=== PATIENT | female | born 1940 | race Caucasian/White ===

== ENCOUNTER → 2016-12-16 | Outpatient (CLI) | payer OTHER, BC ==
[~2016-12-16] MED LIST: CALCTAB5 PO; CARV12.52 PO; CHOL100010 PO; CRAN1CAP15 PO; DVN80 PO; LSX20 PO; MAGN400T6 PO; MULT-506; TRAM-10 PO; compound cream
== END | disposition home or self-care (01) ==
LOC: C.PAPS 10:03
PROVIDERS: ATTEND Obstetrics & Gynecology
DX: Z01.419 Encounter for gynecological examination (general) (routine) without abnormal findings (principal)

== ENCOUNTER → 2017-07-23 | Outpatient (CLI) | payer OTHER, BC ==
[2017-07-23 15:39] LABS: ESTIMATED AVERAGE GLUCOSE 128 mg/dl; HA1C FLAG Normal (Normal)
--- NOTE | 2017-07-28 12:49 | CODING QUERY MEDICAL NECESSITY ---
SUPPORTING DIAGNOSIS NEEDED Dr. Casanova, A supporting diagnosis is required for the test/procedure performed on this patient in order for us to be reimbursed by the patient's insurance. Please provide a supporting diagnosis for the following test/procedure listed below next to the test name along with your signature. *If there is no additional diagnosis for this patient that would support the following test/procedure please document that below next to the test/procedure. Test(s)/Procedure(s) that require a supporting diagnosis: * [id number] GLYCATED HEMOGLOBIN DIAGNOSIS: DATE OF SERVICE: 07/23/17 Provider Signature: Date: Thank you Hi Muñoz [facility] Information Management Once completed, please kindly fax back to [phone] For questions please call [phone]
== END | disposition home or self-care (01) ==
LOC: C.LAB1850 13:30
PROVIDERS: ATTEND Internal Medicine Endocrinology, Diabetes & Metabolism
DX: E04.9 Nontoxic goiter, unspecified (principal)

== ENCOUNTER → 2017-10-31 | Outpatient (CLI) | payer OTHER, BC ==
[~2017-10-31] MED LIST changes: +CEPH500C2 PO; +CZR50
[2017-10-31 12:44] LABS: HEMOGLOBIN 12.9 g/dL (12.0-16.0); MEAN CELL VOLUME 92.4 fL (80-100); MEAN CORPUSCULAR HEMOGLOBIN 30.6 pg (25-34); MEAN CORPUSCULAR HGB CONC 33.1 g/dl (32-36); MEAN PLATELET VOLUME 10.2 fL (7.4-10.4); PLATELET COUNT 167 K/uL (130-400); RED CELL DISTRIBUTION WIDTH CV 13.6 % (11.5-14.5); RED CELL DISTRIBUTION WIDTH SD 45.8 fL (36.4-46.3); WHITE BLOOD COUNT 6.04 K/uL (4.8-10.8)
[2017-10-31 12:52] LABS: PTT PATIENT 29.3 SECONDS (21.0-31.0)
[2017-10-31 15:27] LABS: BLOOD UREA NITROGEN 21 mg/dl (7-18); CALCIUM 9.1 mg/dl (8.5-10.1); CARBON DIOXIDE 28 mmol/L (21-32); CREATININE 0.73 mg/dl (0.60-1.20); GLUCOSE 118 mg/dl (70-99); POTASSIUM 4.4 mmol/L (3.5-5.1); SODIUM 134 mmol/L (136-145)
== END | disposition home or self-care (01) ==
LOC: C.LABPBG 10:23
PROVIDERS: ATTEND Internal Medicine Cardiovascular Disease
DX: Z01.818 Encounter for other preprocedural examination (principal); R53.83 Other fatigue; M25.50 Pain in unspecified joint; E55.9 Vitamin D deficiency, unspecified

== ENCOUNTER → 2017-11-04 | Day surgery (SDC) | payer OTHER, BC ==
[~2017-11-04] VITALS: Ht 165.1 cm; Wt 105.0 kg
[~2017-11-04] MED LIST changes: +ACETAMINOPHEN 325 MG TAB PO PRN; +BACITRACIN 50000 UNIT VIAL ONE; +BACITRACIN OINT 0.9 GM PKT ONE; +CEFAZOLIN 1000MG IV PUSH 5 ML IV SCH; +FENTANYL CITRATE INJ 50 MCG/1 ML 2 ML VIAL ONE; +KETOROLAC TROMETHAMINE 10 MG TAB PO PRN; +LACTATED RINGER'S 1000ML IV SCH; +LIDOCAINE HCL 1% 20 ML VIAL ONE; +MIDAZOLAM HCL 5 MG/ML 1 ML VIAL ONE
[2017-11-04 12:00] VITALS: BP 123/88; PULSE 82; TEMP 36; O2SAT 95
[2017-11-04 12:36] VITALS: Ht 165.1 cm; Wt 105.0 kg
--- NOTE | 2017-11-04 13:22 | Pre Sedation Assessment ---
Pre Sedation Assessment General Date of Sedation: Nov 04, 2017. Vital Signs Past 12 Hours Date Time Temp Pulse Resp B/P (MAP) Pulse Ox O2 Delivery O2 Flow Rate FiO2 11/04/17 12:00 36 82 18 123/88 (100) 95 Room Air Review Cardiovascular: regular rate, rhythm, no murmur Lungs: normal breath sounds Pre-Sedation Airway Assessment Smoking Status: Former Smoker Hx of difficult intubation: No Short Thick Neck: Yes Thyro-mental Distance: > 3 Finger Breadths Oral Cavity: WNL Mallampati Classification: Class IV ASA Classification: Class III NPO Status Date of Last Intake of Fluids: Nov 04, 2017 Time of Last Intake of Fluids: 0600 Date of Last Intake of Solids: Nov 03, 2017 Time of Last Intake of Solids: 2200 Procedure Planning Contraindications for Sedation: None Current Medications Reviewed: Yes Notes The planned sedation has been discussed with the patient. Informed Consent was obtained. I have identified the patient, determined the appropriateness of sedation and have assessed the patient immediately prior to the procedure. All medicine(s) and interventions are by my order.
[2017-11-04 14:35] VITALS: BP 164/75; PULSE 82; TEMP 36.3; O2SAT 94
--- NOTE | 2017-11-04 14:35 | [facility] Operative Report ---
Operative Report Operative Date Nov 04, 2017. Pre-Operative Diagnosis ICD at [facility] Post-Operative Diagnosis same Procedure(s) Performed Biventricular ICD replacement Surgeon Dr. Estrada Evaluation Assistant Surgeon(s) none Estimated Blood Loss 30 cc Findings Excellent pacing and sensing characteristics in all 3 chronic leads Specimens Old ICD, return to [employer] Anesthesia local with sedation Complication(s) None Disposition MTU Description of Procedure After obtaining informed consent for the procedure, the patient was brought to the laboratory being NPO after midnight. After identification in the laboratory the patient was prepped and draped in the standard sterile manner for a left- sided device replacement. The left prepectoral region was anesthetized with 1% lidocaine local anesthetic and once adequate anesthesia was obtained a 6 cm incision was made through the old implant scar and carried down to the ICD generator. The generator was dissected free of tissue and explanted. A bacitracin-soaked sponge(50,000 units in 50 cc normal saline solution) was placed in the pocket. The ICD was removed from the leads and connected to an external pacing system. Pacing and sensing characteristics were evaluated in the atrial, right ventricular and left ventricular leads as noted on the implant data sheet. A new ICD was attached to the leads and found to be functioning normally. The bacitracin-soaked sponge was removed from the pocket, the ICD was placed in the pocket with the leads coiled beneath it. It was attached to the anterior pectoral fascia using a suture of 2-0 silk. The incision was closed with a running double subcutaneous closure of 3-0 V-Lock absorbable suture followed by a running subcuticular skin closure of 4-0 V lock absorbable suture. The patient tolerated the procedure well, there were no complications and the patient was transferred to the same-day surgery unit for observation and subsequent discharge. I attest to the content of the Intraoperative Record and any orders documented therein. Any exceptions are noted below.
--- NOTE | 2017-11-04 14:37 | Post Sedation Assessment ---
Post Sedation Assessment General Date of Sedation Nov 04, 2017. Vital Signs: Vital Signs Past 12 Hours Date Time Temp Pulse Resp B/P (MAP) Pulse Ox O2 Delivery O2 Flow Rate FiO2 11/04/17 12:00 36 82 18 123/88 (100) 95 Room Air Post Procedure Recovery Score Activity: (2) Moves 4 extremities * Respiration: (2) Deep breath/cough Circulation: (2) +/-20% PreAnes Value Consciousness: (2) Fully Awake Oxygen Saturation: (2) > 92% On Room Air Post Anesthesia Score: 10 Discharge Sedation Level of Care: Fast Track Phase II Post Sedation Plan On clinical assessment, the patient appears to have tolerated the sedation without complications. Patient is recovering as anticipated. Patient will continue to be monitored by nursing and may be discharged when sedation discharge criteria are met per below protocol. Upon Completions of procedure and additional 15 minutes continue every 5 minute vital signs and the P.A.R. score; then discharge to a Phase I or Fast Track to Phase II per the following guidelines: * Discharge Patient to appropriate Phase II area if PAR is 8 or greater or return to pre- procedure baseline. The post - procedure orders will be as directed. * If PAR score is less than 8 or not return to pre-procedure baseline then patient will follow Phase I monitoring till PAR is reached for Phase II. The Phase I may be done in procedure room or may call to secure a Phase I area. * If naloxone or flumazenil are used for reversal, hold in Phase I for an additional 60 -120 minutes before discharge to Phase II. Please call the Sedation Physician to re-evaluate and complete post-note for discharge to Phase II area. Do NOT discharge from procedure sedation or Phase 1 until post- sedation evaluation note is complete by procedure /sedation MD Sedation Discharge Instructions to be given to the patient at discharge to home.
--- NOTE | 2017-11-04 14:40 | Discharge Instructions ---
Discharge Instructions Date of Service Nov 04, 2017. Admission Reason for Admission: ICD at end of life Discharge Discharge Diagnosis / Problem: biventricular ICD replacement Discharge Goals Goal(s): Improve disease control Activity Recommendations Activity Limitations: resume your previous activity . Instructions / Follow-Up Instructions / Follow-Up ACTIVITY RECOMMENDATIONS: * Do not raise affected arm over head for 2 weeks. SPECIAL CARE INSTRUCTIONS: * If bleeding occurs, apply direct pressure to area for 5 minutes. * Call your doctor if you have severe pain, fever, drainage or bleeding at site. * Keep dressing on and dry. * Keep any scheduled doctor's appointment. * Implant Card - hand held device with website information given. SKIN IRRITATION: * You may experience some redness and/or swelling in the area where radiation was administered. If any skin irritation occurs, please contact your family physician. FOLLOW UP VISIT: Keep any scheduled doctor appointments. Current Hospital Diet Patient's current hospital diet: AHA Diet (Heart Healthy) Discharge Diet Recommended Diet: AHA Diet (Heart Healthy) Pending Studies Studies pending at discharge: no Medical Emergencies . Who to Call and When: Medical Emergencies: If at any time you feel your situation is an emergency, please call 911 immediately. . Non-Emergent Contact Non-Emergency issues call your: Primary Care Provider . . "Provider Documentation" section prepared by Sung Estrada. . VTE Core Measure Inpt VTE Proph given/why not?: Treatment not indicated
[2017-11-04 15:05] VITALS: BP 166/71; PULSE 73; O2SAT 95
[2017-11-04 15:32] VITALS: BP 153/51; PULSE 75; TEMP 36.3; O2SAT 95
[2017-11-04 16:35] VITALS: BP 165/59; PULSE 82; TEMP 36.6; O2SAT 96
== END ==
LOC: C.ACU 11:12
PROVIDERS: ATTEND Internal Medicine Cardiovascular Disease
DX: Z45.02 Encounter for adjustment and management of automatic implantable cardiac defibrillator (principal)

== ENCOUNTER → 2018-01-02 | Outpatient (CLI) | payer OTHER, BC ==
[~2018-01-02] MED LIST changes: -ACETAMINOPHEN 325 MG TAB PO PRN; -BACITRACIN 50000 UNIT VIAL ONE; -BACITRACIN OINT 0.9 GM PKT ONE; -CEFAZOLIN 1000MG IV PUSH 5 ML IV SCH; -DVN80 PO; -FENTANYL CITRATE INJ 50 MCG/1 ML 2 ML VIAL ONE; -KETOROLAC TROMETHAMINE 10 MG TAB PO PRN; -LACTATED RINGER'S 1000ML IV SCH; -LIDOCAINE HCL 1% 20 ML VIAL ONE; -MIDAZOLAM HCL 5 MG/ML 1 ML VIAL ONE; -MULT-506
[2018-01-02 13:26] LABS: BASO % 0.3 %; BASO ABS # 0.02 K/uL (0-0.2); EOS % 1.8 %; EOS ABS # 0.14 K/uL (0-0.5); HEMATOCRIT 39.6 % (37-47); IG# 0.01 K/uL (0.00-0.02); LYMPH % 28.6 %; LYMPH ABS # 2.23 K/uL (1.2-3.4); MEAN CELL VOLUME 91.5 fL (80-100); MEAN CORPUSCULAR HGB CONC 32.8 g/dl (32-36); MEAN PLATELET VOLUME 9.7 fL (7.4-10.4); MONO % 13.4 %; MONO ABS # 1.04 K/uL (0.11-0.59); NEUT % 55.8 %; NEUT ABS # 4.35 K/uL (1.4-6.5); PLATELET COUNT 182 K/uL (130-400); RED CELL DISTRIBUTION WIDTH CV 14.2 % (11.5-14.5); RED CELL DISTRIBUTION WIDTH SD 47.8 fL (36.4-46.3); WHITE BLOOD COUNT 7.79 K/uL (4.8-10.8)
[2018-01-02 14:29] LABS: ALT/SGPT 26 U/L (12-78); BLOOD UREA NITROGEN 17 mg/dl (7-18); CALCIUM 9.2 mg/dl (8.5-10.1); CARBON DIOXIDE 30 mmol/L (21-32); CHOLESTEROL 187 mg/dl (0-200); CREATININE 0.69 mg/dl (0.60-1.20); GLUCOSE 97 mg/dl (70-99); POTASSIUM 4.6 mmol/L (3.5-5.1); SODIUM 134 mmol/L (136-145)
[2018-01-02 14:40] LABS: ALKALINE PHOSPHATASE 75 U/L (45-117); AST/SGOT 14 U/L (15-37); LDL CHOLESTEROL CALCULATED 90 mg/dl; TOTAL PROTEIN 7.5 gm/dl (6.4-8.2)
[2018-01-03 07:35] LABS: HEMOGLOBIN A1C 6.2 % (4.5-5.6)
== END | disposition home or self-care (01) ==
LOC: C.LABBC 11:08
PROVIDERS: ATTEND Internal Medicine
DX: I42.9 Cardiomyopathy, unspecified (principal); Z85.3 Personal history of malignant neoplasm of breast; R53.83 Other fatigue; Z95.810 Presence of automatic (implantable) cardiac defibrillator; G62.9 Polyneuropathy, unspecified; I10 Essential (primary) hypertension; R06.89 Other abnormalities of breathing; M79.7 Fibromyalgia; R06.83 Snoring; E55.9 Vitamin D deficiency, unspecified; R73.09 Other abnormal glucose

== ENCOUNTER → 2018-06-12 | Outpatient (CLI) | payer OTHER, BC ==
[~2018-06-12] MED LIST changes: -CEPH500C2 PO
[2018-06-12 16:54] LABS: BASO % 0.3 %; BASO ABS # 0.02 K/uL (0-0.2); EOS % 1.2 %; EOS ABS # 0.08 K/uL (0-0.5); HEMATOCRIT 38.6 % (37-47); HEMOGLOBIN 12.7 g/dL (12.0-16.0); IG# 0.01 K/uL (0.00-0.02); LYMPH % 26.3 %; LYMPH ABS # 1.76 K/uL (1.2-3.4); MEAN CELL VOLUME 93.2 fL (80-100); MEAN CORPUSCULAR HEMOGLOBIN 30.7 pg (25-34); MEAN CORPUSCULAR HGB CONC 32.9 g/dl (32-36); MEAN PLATELET VOLUME 10.2 fL (7.4-10.4); NEUT % 60.1 %; NEUT ABS # 4.01 K/uL (1.4-6.5); PLATELET COUNT 182 K/uL (130-400); RED CELL DISTRIBUTION WIDTH CV 14.1 % (11.5-14.5); RED CELL DISTRIBUTION WIDTH SD 48.4 fL (36.4-46.3); WHITE BLOOD COUNT 6.68 K/uL (4.8-10.8)
== END | disposition home or self-care (01) ==
LOC: C.LABPBG 12:26
PROVIDERS: ATTEND Internal Medicine
DX: R53.83 Other fatigue (principal); T14.90XA Injury, unspecified, initial encounter; W57.XXXA Bitten or stung by nonvenomous insect and other nonvenomous arthropods, initial encounter

== ENCOUNTER 2020-03-20 11:25 | Inpatient (IN) ==
--- NOTE | 2020-03-20 12:14 | XRay Report ---
XR chest 1V portable CLINICAL HISTORY: 79 years-old Female presenting with Dyspnea. TECHNIQUE: Portable upright AP view of the chest was obtained. COMPARISON: 05/16/2019. FINDINGS: Left subclavian implanted cardiac defibrillator with leads to the right atrium, right ventricular ape x, and left ventricle via the coronary sinus. Atherosclerosis of the aortic arch. Cardiac silhouette moderately enlarged. Pulmonary vascular and interstitial prominence. At a density of the right lung b ase. No large effusion or pneumothorax. Degenerative changes of the thoracic spine. Upper abdomen nor mal. IMPRESSION: 1. Cardiomegaly with volume overload and congestive change. Mild/developing pulmonary edema suspecte d. ACT 112: Negative or not required by law. Electronically signed by: Jairon Bourne M.D. 03/20/2020 12:13 PM
[2020-03-20 12:27] LABS: Basophils # (auto) 0.01 K/uL (0-0.2); Basophils % (auto) 0.1 %; Eosinophils # (auto) 0.08 K/uL (0-0.5); Eosinophils % (auto) 1.1 %; Hematocrit (blood only) 35.8 % (37-47); Hemoglobin 11.7 g/dL (12.0-16.0); Immature Granulocytes # (auto) 0.01 K/uL (0.00-0.02); Immature Granulocytes % (auto) 0.1 %; Lymphocytes # (auto) 1.11 K/uL (1.2-3.4); Lymphocytes % (auto) 15.9 %; Mean Corpuscular Hemoglobin 30.5 pg (25-34); Mean Corpuscular Hgb Conc 32.7 g/dL (32-36); Mean Corpuscular Volume 93.5 fL (80-100); Mean Platelet Volume 9.8 fL (7.4-10.4); Monocytes # (auto) 0.84 K/uL (0.11-0.59); Monocytes % (auto) 12.1 %; Neutrophils # (auto) 4.92 K/uL (1.4-6.5); Neutrophils % (auto) 70.7 %; Platelet Count 147 K/uL (130-400); RDW Coefficient of Variation 14.4 % (11.5-14.5); RDW Standard Deviation 49.2 fL (36.4-46.3); Red Blood Count 3.83 M/uL (4.2-5.4); White Blood Count 6.97 K/uL (4.8-10.8)
[2020-03-20 12:38] LABS: INR 1.1 (0.9-1.1); Partial Thromboplastin Ratio 1.1; Partial Thromboplastin Time 30.6 Seconds (21.0-31.0); Prothrombin Time 11.8 Seconds (9.0-12.0)
[2020-03-20] MEDS ORDERED: NITROGLYCERIN 2% OINTMENT 30GM TUBE EXT ONE (12:38)
[2020-03-20] MEDS ORDERED: FUROSEMIDE 40 MG/4 ML VIAL IV STA (12:38)
[2020-03-20 12:43] LABS: Alanine Aminotransferase 83 U/L (12-78); Albumin Level 3.8 gm/dl (3.4-5.0); Aspartate Aminotransferase 43 U/L (15-37); BUN Creatinine Ratio 27.6 (10-20); Blood Urea Nitrogen 28 mg/dl (7-18); Calcium 8.6 mg/dl (8.5-10.1); Carbon Dioxide 27 mmol/L (21-32); Chloride 102 mmol/L (98-107); Est GFR (African American) 61.2; Est GFR (Non-African American) 52.8; Glucose 155 mg/dl (70-99); Potassium 4.2 mmol/L (3.5-5.1); Sodium 135 mmol/L (136-145)
[2020-03-20 12:49] LABS: Albumin Globulin Ratio 1.1 (0.9-2); Alkaline Phosphatase 73 U/L (45-117); Bilirubin,Total 0.5 mg/dl (0.2-1); Globulin 3.6 gm/dl (2.5-4.0); NT Pro B Type Natriuretic Pept 6358 pg/ml (0-1800); Total Protein 7.4 gm/dl (6.4-8.2); Troponin I < 0.015 ng/ml (0-0.045)
--- NOTE | 2020-03-20 13:35 | History & Physical Report ---
Date of Service March 20, 2020 Assessment & Plan (1) Acute on chronic systolic heart failure: LVEF 25-30% in May 2019 (non-ischemic cardiomyopathy). No need to repeat as < 1 year and no new heart sounds to suggest valvular disease. Switch valsartan to Entresto as per prior cardiology note. Continue metoprolol succinate 100mg PO daily -> may need to up titrate given tachycardia. Lasix 40mg IV given in ER, Will repeat labs in AM to determine further dosing as suspect a lot of her symptoms are ANA PAULA related and Cr/BUN already raised from baseline with recent increase in outpatient lasix. Elevate HOB > 30 degrees Na restricted diet Refer to [facility] CHF program (2) Shortness of breath: Suspect multifactorial with heart failure worse in the morning due to orthopnea and occasional PND, suspected ANA PAULA from history (pending O/P sleep study), obesity hypoventilation, possible reactive airway disease related to post nasal drip below. Will trial duoneb to see if it helps her symptoms to see if there is a reactive airway component to her wheezing. (3) Elevated transaminase level: Unclear if liver congestion from heart failure above or new etiology. Will trend currently to see if resolves with lasix treatment. (4) Post-nasal drip: Associated chronic sinusitis (feels her sinuses full at night) Using Flonase/Nasacort incorrectly. Educated on correct technique. Recommend stopping unspecified children's allergy medication and will start on loratadine. Consider opratropium nasal spray if not effective. (5) Apnea: Suspected ANA PAULA. Apnea described by patient. Pending sleep study as outpatient. Will trial on CPAP here. If unable to tolerate recommend overnight pulse oximetry to determine if she would benefit from nocturnal O2 (6) Biventricular ICD (implantable cardioverter-defibrillator) in place: noted (7) DVT prophylaxis: Lovenox 40mg SQ daily History of Present Illness Chief Complaint: Fatigue, shortness of breath Primary Care Provider: Jairon Hilliard MD Kathrin Carrillo is an 79 year old female with non-ischemic cardiomyopathy who presents to the ER with fatigue and shortness of breath. She tells a protracted history and finds it difficult to tell me the difference between her acute and chronic symptoms and the timing of recent events. She appears to have chronic fa tigue and shortness of breath on exertion as per prior PCP notes but she feels this has been much worse sudden over the last 3-4 weeks, progressively getting worse. She is very short of breath and tired in the mornings. New symptoms of voice loss in the mornings which resolves by the afternoon as she becomes more alert and she relates to her fatigue and shortness of breath. She has heart failure but does not weigh herself. Based on her symptoms she was advised by a family member who is a nurse to increase her lasix in the last week to 40mg PO daily although the patient feels that dried her out too much and three days ago took none, then just 20mg for the last two days including today. She feels her loss of voice symptom is related to this increase in lasix dosing. March 17 was the worst night of all while on the increased dose of lasix where she woke at 2:30am with extreme difficulty breathing. Positive symptoms of orthopnea and PND. She does not sleep with her head of bed elevated despite previous suggestions to do this. She notes chronic sinusitis and postnasal drip, worse at night. She puts this down to allergies and alternates taking nasacort and flonase. She thinks she takes a children's anti-histamine but is unsure of the dose or name. She noted originally she takes decongestant but then later adamantly denies she takes these after being told not to many years ago by her radio electrician (although it is on her medication list provided by her ). She does not feel her chronic postnasal drip has been worse in the last 3-4 weeks. She denies any muscle pain, chest pain, abdominal pain, nausea, vomiting, diarrhea (occasional with lactose containing products) or constipation. With regards to possible obstructive sleep apnea - her outpatient sleep study has been delayed due to COVID-19. She notes apneic episodes at night, tired all the time during the day time. Excessive snoring. She notes feeling very claustrophobic with anything on her face but feels she may be able to tolerate a nasal CPAP if needed. Other sporadic symptoms: numbness in fingers, one by one, right hand, occurs with her arm placed in certain positions, goes away with shaking it out. occasionally feels very weak and shivery, deep in her torso, although this has not occurred in the last 3-4 weeks with her above symptoms. She also notes more chronic bilateral shoulder abduction weakness. Feels this started last summer - can't raise arms above shoulder levels as it makes her short of breath. Has refused physical therapy as she feels it is too much work to get there with her shortness of breath. Tried contacting her for collateral history but unsuccessful on number in chart. Allergies Allergy/AdvReac Type Severity Reaction Status Date / Time duloxetine [From Cymbalta] Allergy Verified 03/20/20 12:46 Egg Derived Allergy Verified 03/20/20 12:46 Cipro AdvReac Severe Elaine Verified 11/04/17 12:25 Muscle aches and weakness ciprofloxacin AdvReac Severe Elaine Verified 03/20/20 12:46 Muscle aches and weakness NSAIDS (Non-Steroidal AdvReac Severe RECTAL Verified 03/20/20 12:46 Anti-Inflamma BLEEDING epinephrine AdvReac Mild NERVOUS;INCREASED Verified 03/20/20 12:46 HR meperidine AdvReac Mild VOMITING Verified 03/20/20 12:46 nitrofurantoin AdvReac upset Verified 03/20/20 12:46 [From Macrobid] stomach Home Medications Home Medications Medication Instructions Recorded Confirmed Type Lactobacillus 1 cap PO DAILY #30 cap 05/20/19 03/20/20 History acidophilus-Bifidobac.animalis 31 billion cell capsule acetaminophen 500 mg tablet 500 - 1,000 mg PO Q4H PRN tab 05/20/19 03/20/20 History cholecalciferol (vitamin D3) 50 2,000 units PO DAILY tab 05/20/19 03/20/20 History mcg (2,000 unit) tablet vitamin B complex 1 tab PO DAILY 05/20/19 03/20/20 History vitamin E (dl, acetate) 100 unit 100 units PO 2XWK cap 05/20/19 03/20/20 History capsule valsartan 80 mg tablet 80 mg PO DAILY #90 tab 08/20/19 03/20/20 Rx furosemide 20 mg tablet 20 mg PO DAILY #90 tab 12/27/19 03/20/20 Rx metoprolol succinate 100 mg 100 mg PO DAILY #90 tab 12/27/19 03/20/20 Rx tablet,extended release 24 hr Past Med/Surg History Medical History Acute bronchitis Acute hypersomnolence disorder (Chronic) Allergic rhinitis Arthritis of knee (Chronic) 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) Cardiomyopathy (Chronic) Cardiomyopathy, nonischemic (Chronic) Chronic maxillary sinusitis Chronic sinusitis (Chronic) Dyspnea on exertion (Chronic) Encounter for routine gynecological examination Fatigue (Chronic) Female stress incontinence (Chronic) Fibromyalgia (Chronic) Gasping for breath (Chronic) Generalized osteoarthritis of multiple sites (Chronic) Goiter (Chronic) History of varicose veins (Inactive) HTN (hypertension) (Chronic) Hypertrophy of both inferior nasal turbinates Impaired glucose metabolism (Chronic) Joint pain (Chronic) LBBB (left bundle branch block) (Chronic) Malignant neoplasm of breast (Chronic) Nasal septal deviation No pertinent family history Pacemaker (Chronic) Pain of finger of left hand Paroxysmal ventricular tachycardia (Chronic) Polyneuropathy (Chronic) Pre-diabetes (Chronic) Restless legs (Chronic) Snoring (Chronic) Urinary frequency (Chronic) Vitamin D deficiency (Chronic) Surgical History H/O umbilical hernia repair History of breast biopsy History of cholecystectomy History of lumpectomy left breast History of vaginal hysterectomy Hx of colonoscopy No pertinent past surgical history (Chronic) Family History Mother Breast cancer Hypertension Cancer Gallbladder disease Brother Hypertension Diabetes Other No pertinent family history Denies family history of Ovarian cancer Prostate cancer Myocardial infarction Colorectal cancer Social History Preferred Language: Indonesian Communication Ability: Effective Visual Impairment: No Limitations Hearing Ability: Normal Audio Experience Expert Required: No Beliefs That Will Affect Care: None marital status: Current Living Situation: Spouse 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 Other Information That Helps Us Care for You: No Feels Safe at Home: Yes Safety Concerns: Feels Safe At This Time Smoking Status: Former smoker Age Started Using Tobacco: 18 ; Age Quit Using Tobacco: 23 ; Smoking End Date: 1963 ; Second Hand Exposure: No ; Hx Alcohol Use: No Hx Substance Use: No Childhood Exposure to Second-Hand Smoke: No caffeine: Yes during the past year weight has: remained stable Dental Care, Regularly: Yes Physical Activity Frequency: Does not Exercise Physical Activity Frequency Comment: limited by physical condition Seatbelt Use: always Sunscreen Use: Yes Review of Systems Review of Systems: All systems reviewed & are unremarkable except as noted in HPI & below Constitutional: + sweats; no fever and no chills Eyes: no dry eyes, no itchy eyes and no problem reported Ear, Nose, Mouth, Throat: as per Subjective / HPI, + nasal congestion and + post nasal drip; no ear pain, no dizziness, no foul smell and no epistaxis Respiratory: + cough (in AM), + snoring and + wheezing; no hemoptysis Cardiovascular: as per Subjective / HPI, + dyspnea at rest (in mornings), + dyspnea on exertion, + orthopnea and + paroxysmal nocturnal dyspnea; no palpitations, no edema, no calf pain and no claudication Gastrointestinal: no abdominal pain, no heartburn and no change in bowel habits Genitourinary: no problem reported Musculoskeletal: no problem reported Integumentary: no problem reported Neurologic: + unsteadiness and + generalized weakness Psychiatric: no problem reported Physical Exam 2 Constitutional: well developed and + obese; + not well nourished and no acute distress Eyes: PERRL, conjunctivae normal, anicteric sclerae ENMT: external ear and nose normal, oropharynx normal Neck: trachea midline Thyroid: + thyromegaly; thyroid symmetrical Respiratory: normal respiratory effort, able to speak in complete sentences and + audible wheezes; no respiratory distress, no labored breathing, does not use accessory muscles, no cough and no stridor Auscultation: + diminished lung sounds (bibasal) and + wheezes (anterior); no crackles, no rales and no rhonchi Cardiovascular: Rate/Rhythm: regular rate and regular rhythm Heart Sounds: no murmur Vessels: no JVD Extremities: normal capillary refill, + pedal edema (1+ to knees b/l) and + varicosities (b/l chronic as per patient R > L); no calf tenderness Chest (Breasts): Chest: normal inspection of chest Gastrointestinal (Abdomen): normal bowel sounds, soft, nontender, no hepatosplenomegaly Musculoskeletal: no cyanosis or clubbing, extremities motor strength 5/5 Shoulder: shoulder normal to inspection, no deformity, no effusion and normal ROM of shoulder (full ROM with encouragement but she feels more short of breath) Skin: no rashes, warm and dry Neurologic: moves all extremities and awake; no focal motor deficits and not confused Speech / Cognition: normal speech Motor/Sensory: no tremor, no pronator drift and no sensory deficit Psychiatric: A+Ox3, euthymic affect Genitourinary: no CVA tenderness Lymphatic: no cervical or axillary lymphadenopathy Results & Data Results & Data ([facility]) Vital Signs (Past 12 Hours) Vital Signs Temp Pulse Pulse Resp BP BP Pulse Ox 03/20/20 13:21 98 03/20/20 13:20 98 H 22 155/85 H 99 03/20/20 12:24 99 03/20/20 11:35 36.7 C 105 H 22 151/136 H 95 Diagnostic Findings XR chest 1V portable IMPRESSION: 1. Cardiomegaly with volume overload and congestive change. Mild/developing pulmonary edema suspected. Code Status & VTE Plan Code Status Full as discussed with the patient VTE Prophylaxis Plan VTE Prophylaxis will be ordered: Yes PG Care Time/CCT Total # of Minutes Spent Total Time Spent with Patient: Total time spent is greater than 50% in coordination of care (as documented) at patient's floor/unit and/or counseling patient: Coding Level of Care Code 51347 Initial Inpt Care Lvl 3 Diagnoses Acute on chronic systolic heart failure I50.23 Shortness of breath R06.02 Elevated transaminase level R74.0 Post-nasal drip R09.82 Apnea R06.81 Biventricular ICD (implantable cardioverter-defibrillator) in place Z95.810 DVT prophylaxis Z29.9
--- NOTE | 2020-03-20 14:11 | Emergency Department Note ---
History of Present Illness General Chief complaint: Shortness of Breath/Dyspnea Stated complaint: SOB,COUGH Source: patient and RN notes reviewed Mode of arrival: ambulatory Limitations: no limitations History of Present Illness Provider complaint: Shortness of breath Onset (ago): day(s) 2 This patient is an 79-year-old female who presents to the emergency department with complaints of increasing shortness of breath over the last 2 days. Patient states she did increase her Lasix about a week ago, taking 40 mg daily. The patient thinks that she "dehydrated herself" but feels there may still be fluid in her lungs. She states she has been serious about social distancing with her son and . She feels that she is at very low risk of exposure. The patient does have a history of cardiomyopathy and has a pacemaker. She states she has had some pressure in the middle of her chest, but does not have any currently. Patient states her has been assisting her just to walk out to the living room because she has been so short of breath. She denies any fevers, chills, nausea, vomiting or diarrhea. Home Medications Home Medications Medication Instructions Recorded Confirmed Type Lactobacillus 1 cap PO DAILY #30 cap 05/20/19 03/20/20 History acidophilus-Bifidobac.animalis 31 billion cell capsule acetaminophen 500 mg tablet 500 - 1,000 mg PO Q4H PRN tab 05/20/19 03/20/20 History cholecalciferol (vitamin D3) 50 2,000 units PO DAILY tab 05/20/19 03/20/20 History mcg (2,000 unit) tablet vitamin B complex 1 tab PO DAILY 05/20/19 03/20/20 History vitamin E (dl, acetate) 100 unit 100 units PO 2XWK cap 05/20/19 03/20/20 History capsule valsartan 80 mg tablet 80 mg PO DAILY #90 tab 08/20/19 03/20/20 Rx furosemide 20 mg tablet 20 mg PO DAILY #90 tab 12/27/19 03/20/20 Rx metoprolol succinate 100 mg 100 mg PO DAILY #90 tab 12/27/19 03/20/20 Rx tablet,extended release 24 hr Allergies Allergy/AdvReac Type Severity Reaction Status Date / Time duloxetine [From Cymbalta] Allergy Verified 03/20/20 12:46 Egg Derived Allergy Verified 03/20/20 12:46 Cipro AdvReac Severe Elaine Verified 11/04/17 12:25 Muscle aches and weakness ciprofloxacin AdvReac Severe Elaine Verified 03/20/20 12:46 Muscle aches and weakness NSAIDS (Non-Steroidal AdvReac Severe RECTAL Verified 03/20/20 12:46 Anti-Inflamma BLEEDING epinephrine AdvReac Mild NERVOUS;INCREASED Verified 03/20/20 12:46 HR meperidine AdvReac Mild VOMITING Verified 03/20/20 12:46 nitrofurantoin AdvReac upset Verified 03/20/20 12:46 [From Macrobid] stomach Past Med/Surg History Medical History Acute bronchitis Acute hypersomnolence disorder (Chronic) Allergic rhinitis Arthritis of knee (Chronic) 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) Cardiomyopathy (Chronic) Cardiomyopathy, nonischemic (Chronic) Chronic maxillary sinusitis Chronic sinusitis (Chronic) Dyspnea on exertion (Chronic) Encounter for routine gynecological examination Fatigue (Chronic) Female stress incontinence (Chronic) Fibromyalgia (Chronic) Gasping for breath (Chronic) Generalized osteoarthritis of multiple sites (Chronic) Goiter (Chronic) History of varicose veins (Inactive) HTN (hypertension) (Chronic) Hypertrophy of both inferior nasal turbinates Impaired glucose metabolism (Chronic) Joint pain (Chronic) LBBB (left bundle branch block) (Chronic) Malignant neoplasm of breast (Chronic) Nasal septal deviation No pertinent family history Pacemaker (Chronic) Pain of finger of left hand Paroxysmal ventricular tachycardia (Chronic) Polyneuropathy (Chronic) Pre-diabetes (Chronic) Restless legs (Chronic) Snoring (Chronic) Urinary frequency (Chronic) Vitamin D deficiency (Chronic) Surgical History H/O umbilical hernia repair History of breast biopsy History of cholecystectomy History of lumpectomy left breast History of vaginal hysterectomy Hx of colonoscopy No pertinent past surgical history (Chronic) Family History Mother Breast cancer Hypertension Cancer Gallbladder disease Brother Hypertension Diabetes Other No pertinent family history Denies family history of Ovarian cancer Prostate cancer Myocardial infarction Colorectal cancer Social History Preferred Language: Georgian Communication Ability: Effective Visual Impairment: No Limitations Hearing Ability: Normal Beliefs That Will Affect Care: None marital status: Current Living Situation: Spouse 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 and A total of 10 systems reviewed and were otherwise negative Physical Exam Vital Signs Vital Signs - 24 hr 03/20/20 11:35 03/20/20 11:56 03/20/20 12:11 Temperature 36.7 C Temperature Source Oral Pulse Rate 105 H 104 H Pulse Rate [Left] Pulse Rate from SpO2 Sensor 107 H Respiratory Rate 22 23 Respiratory Effort / Characteristics Blood Pressure 151/136 H Blood Pressure [Right Arm] Blood Pressure Mean 141 Blood Pressure Mean [Right Arm] Blood Pressure Position Sitting Blood Pressure Position [Right Arm] Pulse Oximetry 95 98 Oxygen Delivery Method Room Air Oxygen Flow Rate Sepsis Recent Fever Within 48 Hours No Sepsis Action Taken by Nursing No Action Required 03/20/20 12:24 03/20/20 12:30 03/20/20 13:00 Temperature Temperature Source Pulse Rate 73 Pulse Rate [Left] Pulse Rate from SpO2 Sensor 95 H 97 H Respiratory Rate 21 18 Respiratory Effort / Characteristics Blood Pressure Blood Pressure [Right Arm] Blood Pressure Mean Blood Pressure Mean [Right Arm] Blood Pressure Position Blood Pressure Position [Right Arm] Pulse Oximetry 99 95 97 Oxygen Delivery Method Nasal Cannula Oxygen Flow Rate 2 Sepsis Recent Fever Within 48 Hours Sepsis Action Taken by Nursing 03/20/20 13:15 03/20/20 13:20 03/20/20 13:21 Temperature Temperature Source Pulse Rate 94 H Pulse Rate [Left] 98 H Pulse Rate from SpO2 Sensor 95 H Respiratory Rate 18 22 Respiratory Effort / Characteristics Spontaneous Blood Pressure 155/85 H Blood Pressure [Right Arm] 155/85 H Blood Pressure Mean 107 Blood Pressure Mean [Right Arm] 108 Blood Pressure Position Blood Pressure Position [Right Arm] Lying Pulse Oximetry 98 99 98 Oxygen Delivery Method Nasal Cannula Nasal Cannula Oxygen Flow Rate 3 3 Sepsis Recent Fever Within 48 Hours Sepsis Action Taken by Nursing 03/20/20 13:30 Temperature Temperature Source Pulse Rate 88 Pulse Rate [Left] Pulse Rate from SpO2 Sensor 89 Respiratory Rate 24 Respiratory Effort / Characteristics Blood Pressure Blood Pressure [Right Arm] Blood Pressure Mean Blood Pressure Mean [Right Arm] Blood Pressure Position Blood Pressure Position [Right Arm] Pulse Oximetry 97 Oxygen Delivery Method Oxygen Flow Rate Sepsis Recent Fever Within 48 Hours Sepsis Action Taken by Nursing Vital signs reviewed. Noted to be hypertensive General: Generally well-appearing 79-year-old female, with some increased work of breathing. HEENT: No scleral icterus, PERRLA, neck supple. Atraumatic. Cardiovascular: Regular rate and rhythm, no extra sounds. Pulmonary: Increased work of breathing with crackles bilaterally Abdomen: Soft, nontender, nondistended, positive bowel sounds. Musculoskeletal: Atraumatic, no significant peripheral edema. Neurologic: Patient awake alert and oriented x 3. Skin: Warm, dry, no rash Medical Decision Making Medical Records Attestation: I reviewed the patient's medical records. Home Medications Current Medication List: was personally reviewed by me Laboratory Data Attestation: I reviewed the patient's lab results. Result diagrams: 03/20/20 12:15 03/20/20 12:15 Lab Results 03/20/20 03/20/20 03/20/20 Range/Units 12:15 12:15 12:15 WBC 6.97 (4.8-10.8) K/uL RBC 3.83 L (4.2-5.4) M/uL Hgb 11.7 L (12.0-16.0) g/dL Hct 35.8 L (37-47) % MCV 93.5 (80-100) fL MCH 30.5 (25-34) pg MCHC 32.7 (32-36) g/dL RDW Std Deviation 49.2 H (36.4-46.3) fL RDW Coeff of Morgan 14.4 (11.5-14.5) % Plt Count 147 (130-400) K/uL MPV 9.8 (7.4-10.4) fL Immature Gran % (Auto) 0.1 % Neut % (Auto) 70.7 % Lymph % (Auto) 15.9 % Calvert % (Auto) 12.1 % Eos % (Auto) 1.1 % Baso % (Auto) 0.1 % Immature Gran # (Auto) 0.01 (0.00-0.02) K/uL Neut # (Auto) 4.92 (1.4-6.5) K/uL Lymph # (Auto) 1.11 L (1.2-3.4) K/uL Calvert # (Auto) 0.84 H (0.11-0.59) K/uL Eos # (Auto) 0.08 (0-0.5) K/uL Baso # (Auto) 0.01 (0-0.2) K/uL PT 11.8 (9.0-12.0) Seconds INR 1.1 (0.9-1.1) APTT 30.6 (21.0-31.0) Seconds PTT Ratio 1.1 Sodium 135 L (136-145) mmol/L Potassium 4.2 (3.5-5.1) mmol/L Chloride 102 (98-107) mmol/L Carbon Dioxide 27 (21-32) mmol/L Anion Gap 6.0 (3-11) BUN 28 H (7-18) mg/dl Creatinine 1.00 (0.6-1.2) mg/dl Est Cr Clr Drug Dosing Not Reportable Est GFR ( Amer) 61.2 Est GFR (Non-Af Amer) 52.8 BUN/Creatinine Ratio 27.6 H (10-20) Glucose 155 H (70-99) mg/dl Calcium 8.6 (8.5-10.1) mg/dl Magnesium 2.0 (1.8-2.4) mg/dl Total Bilirubin 0.5 (0.2-1) mg/dl AST 43 H (15-37) U/L ALT 83 H (12-78) U/L Alkaline Phosphatase 73 (45-117) U/L Troponin I < 0.015 (0-0.045) ng/ml NT-Pro-B Natriuret Pep 6358 H (0-1800) pg/ml Total Protein 7.4 (6.4-8.2) gm/dl Albumin 3.8 (3.4-5.0) gm/dl Globulin 3.6 (2.5-4.0) gm/dl Albumin/Globulin Ratio 1.1 (0.9-2) Imaging Data Radiologist's Impression: XR chest 1V portable CLINICAL HISTORY: 79 years-old Female presenting with Dyspnea. TECHNIQUE: Portable upright AP view of the chest was obtained. COMPARISON: 05/16/2019. FINDINGS: Left subclavian implanted cardiac defibrillator with leads to the right atrium, right ventricular apex, and left ventricle via the coronary sinus. Ather osclerosis of the aortic arch. Cardiac silhouette moderately enlarged. Pulmonary vascular and interstitial prominence. At a density of the right lung base. No large effusion or pneumothorax. Degenerative changes of the thoracic spine. Upper abdomen normal. IMPRESSION: 1. Cardiomegaly with volume overload and congestive change. Mild/developing pulmonary edema suspected. ACT 112: Negative or not required by law. Electronically signed by: Jairon Bourne M.D. 03/20/2020 12:13 PM Dictated: 03/20/20 1211 Transcribed: 03/20/20 1211 ECG Data Attestation: I personally reviewed and interpreted this ECG as follows: Indication: + SOB/dyspnea Rate (beats per minute): 109 Rhythm: + other (Ventricularly paced ) ECG Intervals/blocks: + Prolonged QT ECG Findings: + PVCs; no PACs Blood Pressure Blood Pressure Findings: Elevated blood pressure Blood Pressure Disposition: further management by hospitalist KENDRA Narrative An order for cardiac monitoring is placed and the patient is found to be in a ventricularly paced rhythm at 88 bpm This patient was evaluated and appeared to be in no significant distress. IV access was obtained and laboratory work was drawn. Patient was felt to be fairly stable with the exception of some increased work of breathing. She was given aspirin 324 mg to chew. Chest x-ray confirms pulmonary vascular congestion, patient was given 1 inch of nitroglycerin paste and 40 mg of IV Lasix. Patient's laboratory work reveals a mildly elevated BNP and a negative troponin. Patient's EKG reveals a ventricularly paced rhythm. Case was discussed with the hospitalist, Dr. Haynes who is agreed to evaluate the patient for further management. Impression & Plan Congestive heart failure Discharge Plan Visit Data Chief Complaint: Shortness of Breath/Dyspnea Stated Complaint: SOB,COUGH ED Provider: Moraima Russo Discharge Problem: Congestive heart failure Forms Stand Alone Forms: [employer] Prescriptions Prescriptions: No Action valsartan 80 mg tablet 80 mg PO DAILY Qty: 90 RF: 3 vitamin B complex tablet 1 tab PO DAILY RF: 0 Lacto.acidophilus-Bif.animalis 31 billion cell capsule 1 cap PO DAILY Qty: 30 RF: 0 cholecalciferol (vitamin D3) 2,000 unit tablet 2,000 units PO DAILY RF: 0 vitamin E (dl, acetate) 100 unit capsule 100 units PO 2XWK RF: 0 furosemide [Lasix] 20 mg tablet 20 mg PO DAILY Qty: 90 RF: 3 metoprolol succinate 100 mg tablet extended release 24 hr 100 mg PO DAILY Qty: 90 RF: 3 acetaminophen [Tylenol Extra Strength] 500 mg tablet 500 - 1,000 mg PO Q4H PRN (Reason: Pain) RF: 0 Discharge Problem: Congestive heart failure Qualifiers: Heart failure type: unspecified Heart failure chronicity: acute on chronic Qualified Code(s): I50.9 - Heart failure, unspecified
[2020-03-20] MEDS ORDERED: ACETAMINOPHEN 325 MG TAB PO PRN (17:45)
[2020-03-20] MEDS ORDERED: PATIENT'S HEIGHT AND/OR WEIGHT NEEDED SCH (18:00)
[2020-03-20] MEDS ORDERED: ENOXAPARIN INJ 40 MG/0.4 ML SYR SQ SCH (18:00)
[2020-03-20] MEDS ORDERED: ALBUT/IPRATROP 3MG/0.5MG NEB 3 ML VIAL NEB SCH (19:00)
[2020-03-20] MEDS ORDERED: LORATADINE 10 MG TAB PO SCH (21:00)
[2020-03-21 06:00] LABS: Hematocrit (blood only) 33.8 % (37-47); Mean Corpuscular Hemoglobin 30.6 pg (25-34); Mean Corpuscular Hgb Conc 32.5 g/dL (32-36); Mean Corpuscular Volume 93.9 fL (80-100); Mean Platelet Volume 9.8 fL (7.4-10.4); Platelet Count 138 K/uL (130-400); RDW Coefficient of Variation 14.2 % (11.5-14.5); White Blood Count 6.26 K/uL (4.8-10.8)
[2020-03-21 06:05] LABS: Base Excess ABG 4.3 mEq/L (-9-1.8); HCO3 ABG 29 mmol/L (19-24); Oxygen Saturation ABG 96.7 % (90-95); PCO2 ABG 42 mmHg (35-46); PO2 ABG 84 mmHg (80-95); pH ABG 7.46 (7.35-7.45)
[2020-03-21 06:06] LABS: Allen Test Pos (Pos)
[2020-03-21 06:28] LABS: Albumin Level 3.5 gm/dl (3.4-5.0); BUN Creatinine Ratio 27.1 (10-20); Calcium 8.8 mg/dl (8.5-10.1); Creatinine Clr Calc Pharmacy 52.9 ml/min; Est GFR (African American) 61.2; Est GFR (Non-African American) 52.8; Potassium 3.7 mmol/L (3.5-5.1)
[2020-03-21 06:32] LABS: Albumin Globulin Ratio 1.1 (0.9-2); Bilirubin,Total 0.8 mg/dl (0.2-1); Globulin 3.2 gm/dl (2.5-4.0); Total Protein 6.7 gm/dl (6.4-8.2)
[2020-03-21] MEDS: SACUBITRIL-VALSARTAN 24-26 MG TAB PO SCH ×2 (08:11→09:08)
[2020-03-21] MEDS ORDERED: LACTOBACILLUS ACIDOPHILUS (FLORANEX) TAB PO SCH (09:00)
[2020-03-21] MEDS ORDERED: ALBUT/IPRATROP 3MG/0.5MG NEB 3 ML VIAL NEB SCH (09:00)
[2020-03-21] MEDS ORDERED: CHOLECALCIFEROL 1,000 UNITS 25 MCG TAB PO SCH (09:00)
[2020-03-21] MEDS ORDERED: METOPROLOL SUCC 50MG EXT REL TAB PO SCH (09:00)
[2020-03-21] MEDS ORDERED: VITAMIN B COMPLEX TAB PO SCH (09:00)
[2020-03-21] MEDS ORDERED: FUROSEMIDE 20 MG TAB PO SCH (10:45)
--- NOTE | 2020-03-21 14:13 | Discharge Summary ---
Date of Service March 21, 2020 Admission HPI Per Admitting Provider Kathrin Carrillo is an 79 year old female with non-ischemic cardiomyopathy who presents to the ER with fatigue and shortness of breath. She tells a protracted history and finds it difficult to tell me the difference between her acute and chronic symptoms and the timing of recent events. She appears to have chronic fatigue and shortness of breath on exertion as per prior PCP notes but she feels this has been much worse sudden over the last 3-4 weeks, progressively getting worse. She is very short of breath and tired in the mornings. New symptoms of voice loss in the mornings which resolves by the afternoon as she becomes more alert and she relates to her fatigue and shortness of breath. She has heart failure but does not weigh herself. Based on her symptoms she was advised by a family member who is a nurse to increase her lasix in the last week to 40mg PO daily although the patient feels that dried her out too much and three days ago took none, then just 20mg for the last two days including today. She feels her loss of voice symptom is related to this increase in lasix dosing. March 17 was the worst night of all while on the increased dose of lasix where she woke at 2:30am with extreme difficulty breathing. Positive symptoms of orthopnea and PND. She does not sleep with her head of bed elevated despite previous suggestions to do this. She notes chronic sinusitis and postnasal drip, worse at night. She puts this down to allergies and alternates taking nasacort and flonase. She thinks she takes a children's anti-histamine but is unsure of the dose or name. She noted originally she takes decongestant but then later adamantly denies she takes these after being told not to many years ago by her hydrogen cell tender (although it is on her medication list provided by her ). She does not feel her chronic postnasal drip has been worse in the last 3-4 weeks. She denies any muscle pain, chest pain, abdominal pain, nausea, vomiting, diarrhea (occasional with lactose containing products) or constipation. With regards to possible obstructive sleep apnea - her outpatient sleep study has been delayed due to COVID-19. She notes apneic episodes at night, tired all the time during the day time. Excessive snoring. She notes feeling very claustrophobic with anything on her face but feels she may be able to tolerate a nasal CPAP if needed. Other sporadic symptoms: numbness in fingers, one by one, right hand, occurs with her arm placed in certain positions, goes away with shaking it out. occasionally feels very weak and shivery, deep in her torso, although this has not occurred in the last 3-4 weeks with her above symptoms. She also notes more chronic bilateral shoulder abduction weakness. Feels this started last summer - can't raise arms above shoulder levels as it makes her short of breath. Has refused physical therapy as she feels it is too much work to get there with her shortness of breath. Tried contacting her for collateral history but unsuccessful on number in chart. Admission Exam Per Admitting Provider Constitutional: well developed and + obese; + not well nourished and no acute distress Eyes: PERRL, conjunctivae normal, anicteric sclerae ENMT: external ear and nose normal, oropharynx normal Neck: trachea midline Thyroid: + thyromegaly; thyroid symmetrical Respiratory: normal respiratory effort, able to speak in complete sentences and + audible wheezes; no respiratory distress, no labored breathing, does not use accessory muscles, no cough and no stridor Auscultation: + diminished lung sounds (bibasal) and + wheezes (anterior); no crackles, no rales and no rhonchi Cardiovascular: Rate/Rhythm: regular rate and regular rhythm Heart Sounds: no murmur Vessels: no JVD Extremities: normal capillary refill, + pedal edema (1+ to knees b/l) and + varicosities (b/l chronic as per patient R > L); no calf tenderness Chest (Breasts): Chest: normal inspection of chest Gastrointestinal (Abdomen): normal bowel sounds, soft, nontender, no hepatosplenomegaly Musculoskeletal: no cyanosis or clubbing, extremities motor strength 5/5 Shoulder: shoulder normal to inspection, no deformity, no effusion and normal ROM of shoulder (full ROM with encouragement but she feels more short of breath) Skin: no rashes, warm and dry Neurologic: moves all extremities and awake; no focal motor deficits and not confused Speech / Cognition: normal speech Motor/Sensory: no tremor, no pronator drift and no sensory deficit Psychiatric: A+Ox3, euthymic affect Genitourinary: no CVA tenderness Lymphatic: no cervical or axillary lymphadenopathy Principal Diagnosis CHF exacerbation Discharge Exam Constitutional well developed and + obese; no acute distress Neck normal visual inspection Respiratory no respiratory distress and no cough Auscultation: + diminished lung sounds (bilateral bases) and + crackles (mild); no rales, no rhonchi and no wheezes Cardiovascular RRR, no murmur, no edema Gastrointestinal (Abdomen) normal bowel sounds, soft, nontender, no hepatosplenomegaly Skin no rashes, warm and dry Psychiatric A+Ox3, euthymic affect Discharge Data Allergies Allergy/AdvReac Type Severity Reaction Status Date / Time duloxetine [From Cymbalta] Allergy Verified 03/20/20 12:46 Egg Derived Allergy Verified 03/20/20 12:46 Cipro AdvReac Severe Elaine Verified 11/04/17 12:25 Muscle aches and weakness ciprofloxacin AdvReac Severe Elaine Verified 03/20/20 12:46 Muscle aches and weakness NSAIDS (Non-Steroidal AdvReac Severe RECTAL Verified 03/20/20 12:46 Anti-Inflamma BLEEDING epinephrine AdvReac Mild NERVOUS;INCREASED Verified 03/20/20 12:46 HR meperidine AdvReac Mild VOMITING Verified 03/20/20 12:46 nitrofurantoin AdvReac upset Verified 03/20/20 12:46 [From Macrobid] stomach Consultations 03/20/20 14:22 ED Decision to Admit Stat 03/20/20 17:45 Consult Case Management - Discharge Planning Routine 03/21/20 00:24 [facility] Referral Routine 03/21/20 12:04 Consult [facility] 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 Acute on chronic systolic heart failure: - LVEF 25-30% in May 2019 (non-ischemic cardiomyopathy). - Repeat Echo performed today; no significant change from previous. - Switch valsartan to Entresto as per prior cardiology note. Will continue on discharge. - Continue metoprolol 100mg daily. - Lasix 40mg IV given in ER, no MARIIA following. Resume home Lasix 20mg daily. - Recommended patient elevate HOB > 30 degrees at home. - Na restricted diet discussed and discharge education provided. - Referred to [facility] program. - Duoneb was not helpful to patient's SOB and also made her feel jittery and nervous. Elevated transaminase level: - LFTs initially elevated on admission. - Returned to normal following Lasix 40mg IV in ED. Likely 2/2 liver congestion from heart failure above. Post-nasal drip: - Associated chronic sinusitis (feels her sinuses full at night). - Using Flonase/Nasacort incorrectly. Educated on correct technique. - Pt will start loratadine at home. - Can consider ipratropium nasal spray in outpatient setting if above not effective. Suspected ANA PAULA: - Pt was to have home sleep study in December however this was postponed due to COVID 19 pandemic response. - Was unable to tolerate CPAP overnight due to the mask covering her face. Had nocturnal pulse oximetry with 8 episode of hypoxia for a total of 2.5 minutes with lowest SpO2 in 60s. - Will need formal sleep study in outpatient. Would be good candidate for nasal CPAP. Dispo: home, will have follow up with Cardiology and with Bhakti at the Heart Failure clinic. (2) CHF exacerbation: (3) Apnea: (4) Elevated transaminase level: Total Time Total Time Spent Total Time Spent (In Minutes): >30 Discharge Plan Discharge Items Patient Disposition: Home - Self-Care Reason For Visit: SOB Discharge Diagnosis: heart failure exacerbation Activity: Per Instructions section Non-emergency contact: Primary Care Provider and Sociology Professor Call non-emergency contact if: you have any medication questions and your symptoms worsen Follow-up/Referrals: Jairon Hilliard MD [Primary Care Provider] - Sung Estrada MD [Physician] - Hellen Dawn PA-C [Physician Dev Technical Mgr] - 03/27/20 10:30 am (Congestive Heart Failure Program Appointment Information Early follow up is essential to managing your heart failure. An appointment has been scheduled for you with the [facility] within 7 days of discharge. Anticipate this visit to be 30-60 minutes long. Please expect a bonbon cream warmer phone call from one of our nurses approximately 48 hours from discharge. They will also be placing an order for lab work to be completed 1-2 days prior to your heart failure follow up appointment. Please be sure to have this done so we can go over the results when you come in. Office Location The cardiology office building is located in front of the hospital at [address]. Bring the following with you to your follow-up doctor appointments: Please bring your daily weight log any discharge paperwork all of your medication bottles with you to this visit. ) Diet: Heart Healthy and Low Sodium (2gm) Addtl Attending Provider Instructions: You were admitted for an exacerbation of your heart failure. During your admission we changed your health failure medications and you will continue taking the below: 1) Continue Metoprolol 100 milligram (one pill daily). You were put on this by Dr. Alex because you were having muscle cramps at your last Cardiology visit. 2) Stop valsartan. Start taking Entresto 1 pill every 12 hours. This has been sent to the [facility] on [address] in [place]. You can start that medication tonight. 3) Continue taking your Lasix 20 milligram pill (one pill daily). You will be called regarding follow up with Dr. Estrada and Dr. Hilliard within one week. If you do not hear from their offices use the office numbers above to schedule appointments. You will also hear from Hellen from the Heart Failure Clinic. Please see the attached form entitled "[facility] CHF Dc Instructions" for tips and tricks to avoid salt in your diet and to help you understand heart failure and how to keep you healthy moving forward. Regarding your sleep apnea, you had an overnight oxygen measurement test here which shows you likely have significant sleep apnea. You will need a formal sleep study outpatient in order to qualify for nasal CPAP. Please discuss this with Dr. Hilliard. Pending Studies at Discharge: No Stand-Alone Forms: [facility] CH[facility] D[facility] Instructions, [facility], Smoking Cessation Medications and DC Order Prescriptions: New sacubitril-valsartan 24-26 mg tablet 1 tab PO BID Qty: 60 RF: 0 Continued vitamin B complex tablet 1 tab PO DAILY RF: 0 Lacto.acidophilus-Bif.animalis 31 billion cell capsule 1 cap PO DAILY Qty: 30 RF: 0 cholecalciferol (vitamin D3) 2,000 unit tablet 2,000 units PO DAILY RF: 0 vitamin E (dl, acetate) 100 unit capsule 100 units PO 2XWK RF: 0 furosemide [Lasix] 20 mg tablet 20 mg PO DAILY Qty: 90 RF: 3 metoprolol succinate 100 mg tablet extended release 24 hr 100 mg PO DAILY Qty: 90 RF: 3 acetaminophen [Tylenol Extra Strength] 500 mg tablet 500 - 1,000 mg PO Q4H PRN (Reason: Pain) RF: 0 Discontinued valsartan 80 mg tablet 80 mg PO DAILY Qty: 90 RF: 3 Discharge Orders: Discharge Order (Routine); Ordered 03/21/20 Ordered By: Dasha Luna Admission Data Admit Date/Time: 03/20/20 14:17 Attending Provider: Maurice Pretty Admit Provider: Adrien Haynes Primary Care Provider: Jairon Hilliard Other Providers: Adrien Haynes ; Hellen Dawn Other Interventions: Discharge Summary Assessment (RN) Last Done: 03/21/20 14:21 DC Date/Time DO NOT enter until pt leaves facility: 03/21/20 14:45 Supervising Physician Co-Signing Physician Notes I personally examined the patient and verified all martinez points of history and exam, discussed case, and agree with decision making with Dr Wei. feeling better and very much wants to go home. discuss Na extensively - she's fairly liberal with salt intake in processed foods as well as adding salt. discussed meds, expresses understanding. discussed options of ongoing inpatient care where burden of responsibility can be on us vs home where plan is essentially the same but responsibility is on her - she very much would prefer to go home vitals noted nad heent nc at mmm breathing unlabored no accessory muscles good effort skin no rashes no pallor or icterus acute on chronic systolic CHF (HFrEF) - improved after lasix. with low EF would recommend entresto - after careful discussion of risks/benefits she will try; BMP 1wk, outpt f/u. extensive discussion of low Na intake she expressed fairly good understanding, awareness that she is way too liberal with salt, did not seem to have previously made the connection between Na intake and fluid retention (and therefore Na intake and her breathing) but after discussions she expresses understanding of this as well. stable for home probable ANA PAULA possible [facility] - outpt sleep study, management based on results - overnight pulse ox strongly suggests at least ANA PAULA. stable for home otherwise as above Resident Activity Tracking Resident Involvement: Resident Care Provided Care Provided: Adult Hospital Medicine
--- NOTE | 2020-03-21 15:23 | Electrocardiogram Report ---
Test Reason : Blood Pressure : / mmHG Vent. Rate : 109 BPM Atrial Rate : 109 BPM P-R Int : 000 ms QRS Dur : 128 ms QT Int : 382 ms P-R-T Axes : 000 -81 059 degrees QTc Int : 514 ms Ventricular-paced rhythm with occasional Premature ventricular complexes Biventricular pacemaker detected Abnormal ECG When compared with ECG of 16-MAY-2019 11:28, Premature ventricular complexes are now Present Vent. rate has increased BY 31 BPM Confirmed by Eriberto Dyson ([id number]) on 03/21/2020 3:22:36 PM Referred By: REFERRED SELF Confirmed By:Eriberto Dyson
--- NOTE | 2020-03-21 16:06 | XCELERA ---
[id number]
--- NOTE | 2020-03-21 17:35 | Billing Data ---
Date of Service March 21, 2020 Coding Level of Care Code D/C Day Management >30 mins
[2020-03-21] MEDS ORDERED: SACUBITRIL-VALSARTAN 24-26 MG TAB PO SCH (21:00)
== END 2020-03-21 14:45 | disposition home or self-care (01) | DRG 292 ==
LOC: ED 11:25 → 2N 14:17 → SUATTDRO 14:17 → 2N 16:29

== ENCOUNTER 2023-04-01 02:06 | Inpatient (IN) ==
--- NOTE | 2023-04-01 03:36 | Emergency Department Note ---
Impression & Plan Syncope, Pacemaker, Hyponatremia ED Provider Note CHIEF COMPLAINT: Syncope HISTORY OF PRESENT ILLNESS: This 82-year-old female patient with past medical history of hyponatremia, paroxysmal atrial fibrillation on chronic anticoagulation, chronic kidney disease, CHF and recurrent syncope presents to the emergency department after a syncopal episode tonight. states that she called him from the bathroom, he found her standing at the sink. She stated that she was feeling faint and he was able to help her lowered to the ground. Per she did lose consciousness briefly. He and their son allowed her to lay on the floor until she felt more stable. They got her up and onto an ottoman with wheels in an attempt to get her back to bed. The patient was lying facedown on the ottoman as they wheeled her back to bed she lost consciousness once again. states this is happened 4 times this year and he initially was not alarmed. Patient was apparently unresponsive for about 20 minutes. He called the ambulance as he became concerned. Patient is able to answer questi ons but is drowsy and states she is cold. She has been incontinent of urine which is not new. REVIEW OF SYSTEMS: A review of systems was performed with positives and pertinent negatives listed in the history of present illness. 10 systems were reviewed and are otherwise negative. ALLERGIES: see below MEDICATIONS: see below PMH: see below SOCIAL HISTORY: see below DDx:Vasovagal event, dehydration, infection, hypoglycemia, electrolyte abnormalities, cardiac sources, intracerebral event, pulmonary embolism, seizure, toxicologic, neurologic, as well as other pathologies. PHYSICAL EXAM: Vital signs reviewed. General: Chronically ill-appearing 82-year-old female, in no significant distress. HEENT: No scleral icterus, PERRLA, neck supple. Atraumatic. Cardiovascular: Regular rate and rhythm, no extra sounds. Pulmonary: Crackles to the bases bilaterally upon auscultation, normal work of breathing. Abdomen: Soft, obese, nontender, nondistended, positive bowel sounds. Musculoskeletal: Atraumatic, minimal peripheral edema. Neurologic: Patient awake alert and answers most questions appropriately. Speech is soft but clear. She is able to follow commands Skin: Warm, dry, no rash EMERGENCY DEPARTMENT COURSE/MDM: -Evaluated and appeared to be in no distress. -IV access was obtained and lab work was drawn. -Sodium is noted to be low at 124. Troponin normal, UA negative. -Per external medical records, pt has has interrogations of pacemaker previously that were negative for dysrhythmia. -Etiology of syncope is unclear. Head CT negative. -Pt case d/w hospitalist service for admission and further management. MONITORING: An order for cardiac monitoring was placed and the patient is noted to be in a paced rhythm at 76 beats per minute. RADIOLOGY: CXR to my interpretation reveals pulm vascular congestion. Otherwise defer to rads. CT head to my review is negative for acute process. otherwise defer to rads CTA head and neg negative per rads, see below EKG: to my interpretation reveals an AV dual pacer at 78 bpm with PVC. QTC 524. No significant change from 08/29/2020 DISPOSITION:Admit Past Med/Surg History Medical History (Updated 04/05/23 @ 12:51 by Moraima Russo MD) Acute bronchitis Acute hypersomnolence disorder Allergic rhinitis Arthritis of knee Biventricular ICD (implantable cardioverter-defibrillator) in place Cardiomyopathy, nonischemic Chronic maxillary sinusitis Chronic sinusitis Dyspnea on exertion Encounter for routine gynecological examination Fatigue Female stress incontinence Fibromyalgia Generalized osteoarthritis of multiple sites Goiter History of varicose veins HTN (hypertension) Hypertrophy of both inferior nasal turbinates Impaired glucose metabolism Joint pain LBBB (left bundle branch block) Malignant neoplasm of breast Nasal septal deviation No pertinent family history Pacemaker Pain of finger of left hand Paroxysmal ventricular tachycardia Polyneuropathy Pre-diabetes Restless legs Snoring Urinary frequency Vitamin D deficiency Surgical History H/O umbilical hernia repair History of breast biopsy History of cholecystectomy History of lumpectomy left breast History of vaginal hysterectomy Hx of colonoscopy Family History Mother Breast cancer Hypertension Cancer Gallbladder disease Brother Hypertension Diabetes Other No pertinent family history Denies family history of Ovarian cancer Prostate cancer Myocardial infarction Colorectal cancer Social History Smoking Status: Former smoker Age Started Using Tobacco: 18; Age Quit Using Tobacco: 23; Second Hand Exposure: No; Hx Alcohol Use: No Hx Substance Use: No Preferred Language: Russian Communication Ability: Effective Visual Impairment: No Limitations Hearing Ability: Hard of Hearing 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 Beliefs That Will Affect Care: None marital status: Current Living Situation: Spouse and Family 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 Other Information That Helps Us Care for You: No Feels Safe at Home: Yes Safety Concerns: Feels Safe At This Time Childhood Exposure to Second-Hand Smoke: No Diet: regular Diet Comment: regular caffeine: Yes during the past year weight has: other Dental Care, Regularly: Yes Physical Activity Frequency: Does not Exercise Physical Activity Frequency Comment: limited by physical condition Seatbelt Use: always Sunscreen Use: Yes Assistive Devices: Cane and Glasses Allergies Allergies Allergy/AdvReac Type Severity Reaction Status Date / Time duloxetine [From Cymbalta] Allergy Unknown Unknown Verified 04/01/23 02:40 Egg Derived Allergy Unknown Unknown Verified 04/01/23 02:40 ciprofloxacin AdvReac Severe Elaine Verified 04/01/23 02:40 Muscle aches and weakness NSAIDS (Non-Steroidal AdvReac Severe RECTAL Verified 04/01/23 02:40 Anti-Inflamma BLEEDING epinephrine AdvReac Intermediate NERVOUS;INCREASED Verified 04/01/23 02:40 HR meperidine AdvReac Intermediate VOMITING Verified 04/01/23 02:40 nitrofurantoin AdvReac Intermediate upset Verified 04/01/23 02:40 [From Macrobid] stomach Home Meds Home Medications Medication Instructions Recorded Confirmed acetaminophen 500 mg tablet 500 - 1,000 mg PO Q4H PRN Pain 05/20/19 04/01/23 (Tylenol Extra Strength) Previous Rx's Medication Instructions Recorded carvedilol 25 mg tablet 25 mg PO BID #180 tabs 08/27/22 apixaban 5 mg tablet (Eliquis) 5 mg PO BID #180 tabs 09/24/22 furosemide 20 mg tablet (Lasix) 20 mg PO DAILY #100 tabs 12/02/22 sacubitril 49 mg-valsartan 51 mg 1 tab PO BID #180 tabs 02/21/23 tablet (Entresto) Results & Data (ED) Vital Signs Vital Signs - 24 hr 04/01/23 02:13 04/01/23 02:16 04/01/23 02:52 Temperature 36.4 C L Temperature Source Axillary Pulse Rate 86 76 Respiratory Rate 16 Respiratory Effort / Characteristics Non-Labored Respiratory Depth Normal Blood Pressure 106/94 Blood Pressure Mean 98 Pulse Oximetry 98 96 Oxygen Delivery Method Room Air Room Air Sepsis Recent Fever Within 48 Hours No Sepsis New/Unexplained Change in Mental Status No Sepsis Action Taken by Nursing No Action Required 04/01/23 03:47 04/01/23 04:00 Temperature Temperature Source Pulse Rate 75 75 Respiratory Rate 20 17 Respiratory Effort / Characteristics Respiratory Depth Blood Pressure 110/72 121/78 Blood Pressure Mean 84 92 Pulse Oximetry 95 99 Oxygen Delivery Method Room Air Room Air Sepsis Recent Fever Within 48 Hours Sepsis New/Unexplained Change in Mental Status Sepsis Action Taken by Alf Medications Current Medication List: was personally reviewed by me Laboratory Data Attestation: I reviewed the patient's lab results. 04/01/23 03:28 04/01/23 03:28 Lab Results 04/01/23 04/01/23 04/01/23 Range/Units 03:28 03:28 03:28 WBC 10.78 (4.8-10.8) K/ul RBC 4.03 L (4.20-5.40) M/uL Hgb 12.6 (12.0-16.0) g/dl Hct 36.8 L (37.0-47.0) % MCV 91.3 (80.0-100.0) fL MCH 31.3 (25.0-34.0) pg MCHC 34.2 (32.0-36.0) g/dL RDW Std Deviation 41.6 (36.4-46.3) fL RDW Coeff of Morgan 12.6 (11.5-14.5) % Plt Count 192 (130-400) K/uL MPV 9.4 (9.4-12.4) fL Immature Gran % (Auto) 0.4 % Neut % (Auto) 80.0 % Lymph % (Auto) 9.2 % Dent % (Auto) 9.5 % Eos % (Auto) 0.6 % Baso % (Auto) 0.3 % Neut # (Auto) 8.63 H (1.40-6.50) K/uL Lymph # (Auto) 0.99 L (1.2-3.4) K/uL Dent # (Auto) 1.02 H (0.11-0.59) K/uL Eos # (Auto) 0.07 (0-0.50) K/uL Baso # (Auto) 0.03 (0-0.2) K/uL Immature Gran # (Auto) 0.04 (0.01-0.20) K/uL Sodium 124 L (136-145) mmol/L Potassium 3.7 (3.5-5.1) mmol/L Chloride 89 L (98-107) mmol/L Carbon Dioxide 26 (21-32) mmol/L Anion Gap 9 (3-11) BUN 14 (6-23) mg/dl Creatinine 0.94 (0.6-1.2) mg/dl Est Cr Clr Drug Dosing 52.1 ml/min Est GFR ( Amer) 64.6 ml/min Est GFR (Non-Af Amer) 55.7 ml/min BUN/Creatinine Ratio 14.9 (10-20) Glucose 139 H (70-99(Fasting)) mg/dl Osmolality (280-300) mOsm/kg Calcium 9.4 (8.6-10.3) mg/dl Magnesium 1.8 (1.7-2.4) mg/dl Total Bilirubin 0.7 (0.2-1.0) mg/dl AST 16 (13-39) U/L ALT 9 (7-52) U/L Alkaline Phosphatase 55 (34-104) U/L Troponin I High Sens 13.0 (0-14) pg/ml Total Protein 7.6 (6.0-8.3) gm/dl Albumin 4.4 (3.4-5.0) gm/dl Globulin 3.2 (2.5-4.0) gm/dl Albumin/Globulin Ratio 1.4 (0.9-2) TSH 4.689 H (0.300-4.500) uIu/ml Free T4 1.51 (0.61-1.60) ng/dl Urine Color Urine Appearance (Clear) Urine pH (4.5-7.5) Ur Specific [place] (1.000-1.030) Urine Protein (Negative) Urine Glucose (UA) (Negative) Urine Ketones (Negative) Urine Blood (Negative) Urine Nitrite (Negative) Urine Bilirubin (Negative) Urine Urobilinogen (Negative) Ur Leukocyte Esterase (Negative) Urine WBC (Auto) (0-5) /hpf Urine RBC (Auto) (0-4) /hpf U Hyaline Cast (Auto) (0-5) /lpf U Epithel Cells (Auto) (0-5) /lpf Urine Bacteria (Auto) (Negative) Urine Osmolality (500-800) mOsm/kg SARS-CoV-2, RNA, NAAT (NEGATIVE) 04/01/23 04/01/23 04/01/23 Range/Units 03:28 05:00 05:00 WBC (4.8-10.8) K/ul RBC (4.20-5.40) M/uL Hgb (12.0-16.0) g/dl Hct (37.0-47.0) % MCV (80.0-100.0) fL MCH (25.0-34.0) pg MCHC (32.0-36.0) g/dL RDW Std Deviation (36.4-46.3) fL RDW Coeff of Morgan (11.5-14.5) % Plt Count (130-400) K/uL MPV (9.4-12.4) fL Immature Gran % (Auto) % Neut % (Auto) % Lymph % (Auto) % Dent % (Auto) % Eos % (Auto) % Baso % (Auto) % Neut # (Auto) (1.40-6.50) K/uL Lymph # (Auto) (1.2-3.4) K/uL Dent # (Auto) (0.11-0.59) K/uL Eos # (Auto) (0-0.50) K/uL Baso # (Auto) (0-0.2) K/uL Immature Gran # (Auto) (0.01-0.20) K/uL Sodium (136-145) mmol/L Potassium (3.5-5.1) mmol/L Chloride (98-107) mmol/L Carbon Dioxide (21-32) mmol/L Anion Gap (3-11) BUN (6-23) mg/dl Creatinine (0.6-1.2) mg/dl Est Cr Clr Drug Dosing ml/min Est GFR ( Amer) ml/min Est GFR (Non-Af Amer) ml/min BUN/Creatinine Ratio (10-20) Glucose (70-99(Fasting)) mg/dl Osmolality 265 L (280-300) mOsm/kg Calcium (8.6-10.3) mg/dl Magnesium (1.7-2.4) mg/dl Total Bilirubin (0.2-1.0) mg/dl AST (13-39) U/L ALT (7-52) U/L Alkaline Phosphatase (34-104) U/L Troponin I High Sens (0-14) pg/ml Total Protein (6.0-8.3) gm/dl Albumin (3.4-5.0) gm/dl Globulin (2.5-4.0) gm/dl Albumin/Globulin Ratio (0.9-2) TSH (0.300-4.500) uIu/ml Free T4 (0.61-1.60) ng/dl Urine Color [place] Urine Appearance Clear (Clear) Urine pH 6.5 (4.5-7.5) Ur Specific [place] 1.013 (1.000-1.030) Urine Protein 1+ H (Negative) Urine Glucose (UA) Trace H (Negative) Urine Ketones Negative (Negative) Urine Blood Negative (Negative) Urine Nitrite Positive A (Negative) Urine Bilirubin Negative (Negative) Urine Urobilinogen Negative (Negative) Ur Leukocyte Esterase 1+ H (Negative) Urine WBC (Auto) 5-10 H (0-5) /hpf Urine RBC (Auto) 0-4 (0-4) /hpf U Hyaline Cast (Auto) 1-5 (0-5) /lpf U Epithel Cells (Auto) 0-5 (0-5) /lpf Urine Bacteria (Auto) 2+ H (Negative) Urine Osmolality (500-800) mOsm/kg SARS-CoV-2, RNA, NAAT NEGATIVE (NEGATIVE) 04/01/23 Range/Units 05:00 WBC (4.8-10.8) K/ul RBC (4.20-5.40) M/uL Hgb (12.0-16.0) g/dl Hct (37.0-47.0) % MCV (80.0-100.0) fL MCH (25.0-34.0) pg MCHC (32.0-36.0) g/dL RDW Std Deviation (36.4-46.3) fL RDW Coeff of Morgan (11.5-14.5) % Plt Count (130-400) K/uL MPV (9.4-12.4) fL Immature Gran % (Auto) % Neut % (Auto) % Lymph % (Auto) % Dent % (Auto) % Eos % (Auto) % Baso % (Auto) % Neut # (Auto) (1.40-6.50) K/uL Lymph # (Auto) (1.2-3.4) K/uL Dent # (Auto) (0.11-0.59) K/uL Eos # (Auto) (0-0.50) K/uL Baso # (Auto) (0-0.2) K/uL Immature Gran # (Auto) (0.01-0.20) K/uL Sodium (136-145) mmol/L Potassium (3.5-5.1) mmol/L Chloride (98-107) mmol/L Carbon Dioxide (21-32) mmol/L Anion Gap (3-11) BUN (6-23) mg/dl Creatinine (0.6-1.2) mg/dl Est Cr Clr Drug Dosing ml/min Est GFR ( Amer) ml/min Est GFR (Non-Af Amer) ml/min BUN/Creatinine Ratio (10-20) Glucose (70-99(Fasting)) mg/dl Osmolality (280-300) mOsm/kg Calcium (8.6-10.3) mg/dl Magnesium (1.7-2.4) mg/dl Total Bilirubin (0.2-1.0) mg/dl AST (13-39) U/L ALT (7-52) U/L Alkaline Phosphatase (34-104) U/L Troponin I High Sens (0-14) pg/ml Total Protein (6.0-8.3) gm/dl Albumin (3.4-5.0) gm/dl Globulin (2.5-4.0) gm/dl Albumin/Globulin Ratio (0.9-2) TSH (0.300-4.500) uIu/ml Free T4 (0.61-1.60) ng/dl Urine Color Urine Appearance (Clear) Urine pH (4.5-7.5) Ur Specific [place] (1.000-1.030) Urine Protein (Negative) Urine Glucose (UA) (Negative) Urine Ketones (Negative) Urine Blood (Negative) Urine Nitrite (Negative) Urine Bilirubin (Negative) Urine Urobilinogen (Negative) Ur Leukocyte Esterase (Negative) Urine WBC (Auto) (0-5) /hpf Urine RBC (Auto) (0-4) /hpf U Hyaline Cast (Auto) (0-5) /lpf U Epithel Cells (Auto) (0-5) /lpf Urine Bacteria (Auto) (Negative) Urine Osmolality 426 L (500-800) mOsm/kg SARS-CoV-2, RNA, NAAT (NEGATIVE) Administered Medications Acetaminophen (Acetaminophen 325 Mg Tab) 650 mg PO Q4H PRN PRN Reason: Pain or Fever Stop: 05/01/23 08:59 Last Admin: 04/02/23 18:56 Dose: 650 mg Documented By: REINALDO Apixaban (Apixaban 5 Mg Tablet) 5 mg PO BID [facility] Stop: 05/01/23 08:59 Last Admin: 04/05/23 08:08 Dose: 5 mg Documented By: Admin: 04/04/23 19:47 Dose: 5 mg Documented By: Admin: 04/04/23 08:08 Dose: 5 mg Documented By: Admin: 04/03/23 20:18 Dose: 5 mg Documented By: Admin: 04/03/23 08:07 Dose: 5 mg Documented By: Admin: 04/02/23 20:44 Dose: 5 mg Documented By: Admin: 04/02/23 08:15 Dose: 5 mg Documented By: Admin: 04/01/23 20:05 Dose: 5 mg Documented By: Admin: 04/01/23 09:59 Dose: 5 mg Documented By: ANGIE Carvedilol (Carvedilol 25 Mg Tab) 25 mg PO BIDM [facility] Stop: 05/01/23 08:59 Last Admin: 04/05/23 08:09 Dose: 25 mg Documented By: Admin: 04/04/23 17:10 Dose: 25 mg Documented By: Admin: 04/04/23 08:09 Dose: 25 mg Documented By: Admin: 04/03/23 16:47 Dose: 25 mg Documented By: Admin: 04/03/23 08:10 Dose: 25 mg Documented By: Admin: 04/02/23 17:09 Dose: 25 mg Documented By: Admin: 04/02/23 09:30 Dose: 25 mg Documented By: Admin: 04/01/23 17:36 Dose: 25 mg Documented By: Admin: 04/01/23 09:59 Dose: 25 mg Documented By: ANGIE Cephalexin HCl (Cephalexin 500 Mg Cap) 500 mg PO BID [facility]; Protocol Stop: 04/08/23 08:59 Last Admin: 04/05/23 08:08 Dose: 500 mg Documented By: Admin: 04/04/23 19:46 Dose: 500 mg Documented By: Admin: 04/04/23 08:08 Dose: 500 mg Documented By: Admin: 04/03/23 20:18 Dose: 500 mg Documented By: Admin: 04/03/23 09:44 Dose: 500 mg Documented By: ALFREDO Cyanocobalamin (Cyanocobalamin 1000 Mcg/Ml Vial) 1,000 mcg IM QAM [facility] Stop: 04/09/23 08:59 Last Admin: 04/05/23 08:09 Dose: 1,000 mcg Documented By: Admin: 04/04/23 08:18 Dose: 1,000 mcg Documented By: REJI Furosemide (Furosemide 20 Mg Tab) 20 mg PO DAILY [facility] Stop: 05/01/23 08:59 Last Admin: 04/05/23 08:09 Dose: 20 mg Documented By: Admin: 04/04/23 08:10 Dose: 20 mg Documented By: Admin: 04/03/23 08:09 Dose: 20 mg Documented By: Admin: 04/02/23 08:15 Dose: 20 mg Documented By: Admin: 04/01/23 09:59 Dose: 20 mg Documented By: ANGIE Sacubitril/Valsartan (Valsartan/Sacubitril 51/49 Mg Tab) 1 tab PO BID [facility] Stop: 05/01/23 08:59 Last Admin: 04/05/23 08:08 Dose: 1 tab Documented By: Admin: 04/04/23 19:47 Dose: 1 tab Documented By: Admin: 04/04/23 08:08 Dose: 1 tab Documented By: Admin: 04/03/23 20:18 Dose: 1 tab Documented By: Admin: 04/03/23 08:10 Dose: 1 tab Documented By: Admin: 04/02/23 20:44 Dose: 1 tab Documented By: Admin: 04/02/23 08:18 Dose: 1 tab Documented By: Admin: 04/01/23 20:05 Dose: 1 tab Documented By: Admin: 04/01/23 09:59 Dose: 1 tab Documented By: ANGIE Sodium Chloride (Sodium Chloride 1 Gm Tablet) 1 gm PO BID [facility] Stop: 05/05/23 08:59 Last Admin: 04/05/23 09:53 Dose: 1 gm Documented By: Thiamine HCl (Thiamine Hcl 100 Mg Tab) 200 mg PO BID [facility] Stop: 05/04/23 10:14 Last Admin: 04/05/23 08:08 Dose: 200 mg Documented By: Admin: 04/04/23 19:46 Dose: 200 mg Documented By: Admin: 04/04/23 12:44 Dose: 200 mg Documented By: Discontinued Medications Ceftriaxone Sodium 2,000 mg/ (Dextrose) 70 mls @ 100 mls/hr IV Q24H [facility]; Protocol Stop: 04/06/23 14:59 Last Infusion: 04/02/23 17:08 Dose: 0 mls/hr Documented By: Admin: 04/02/23 14:43 Dose: 100 mls/hr Documented By: Infusion: 04/01/23 16:31 Dose: 0 mls/hr Documented By: Admin: 04/01/23 15:25 Dose: 100 mls/hr Documented By: ANGIE Ioversol (Optiray 320 500ml) 115 ml IV ONCE ONE Stop: 04/02/23 10:15 Last Admin: 04/02/23 10:15 Dose: 115 ml Documented By: BEBO Potassium Chloride (Potassium Chloride 10 Meq Tabcr) 10 meq PO NOW STA Stop: 04/03/23 15:48 Last Admin: 04/03/23 16:02 Dose: 10 meq Documented By: ALFREDO Potassium Chloride (Potassium Chloride 10 Meq Tabcr) 10 meq PO NOW STA Stop: 04/04/23 09:02 Last Admin: 04/04/23 10:09 Dose: 10 meq Documented By: Sodium Chloride (Sodium Chloride 1 Gm Tablet) 1 gm PO BID17 [facility] Stop: 05/02/23 16:59 Last Admin: 04/03/23 08:10 Dose: 1 gm Documented By: Admin: 04/02/23 17:10 Dose: 1 gm Documented By: ANGIE Sodium Chloride (Sodium Chloride 1 Gm Tablet) 1 gm PO NOW STA Stop: 04/03/23 12:16 Last Admin: 04/03/23 13:08 Dose: 1 gm Documented By: ALFREDO Sodium Chloride (Sodium Chloride 1 Gm Tablet) 2 gm PO BID17 [facility] Stop: 05/03/23 16:59 Last Admin: 04/04/23 17:10 Dose: 2 gm Documented By: Admin: 04/04/23 08:10 Dose: 2 gm Documented By: Admin: 04/03/23 16:46 Dose: 2 gm Documented By: ALFREDO Urea (Urea (Urea-Na) 15 Gm Pack) 15 gm PO Q6 [facility] Stop: 05/02/23 00:00 Last Admin: 04/03/23 12:04 Dose: 15 gm Documented By: Admin: 04/03/23 05:43 Dose: 15 gm Documented By: Admin: 04/02/23 22:34 Dose: 15 gm Documented By: Admin: 04/02/23 17:10 Dose: 15 gm Documented By: Admin: 04/02/23 11:19 Dose: 15 gm Documented By: Admin: 04/02/23 05:14 Dose: 15 gm Documented By: Admin: 04/02/23 00:39 Dose: 15 gm Documented By: JAMILA Urea (Urea (Urea-Na) 15 Gm Pack) 15 gm PO Q6H [facility] Stop: 05/04/23 18:29 Last Admin: 04/05/23 05:57 Dose: Not Given Documented By: Admin: 04/05/23 00:06 Dose: Not Given Documented By: Admin: 04/04/23 19:55 Dose: Not Given Documented By: TPB Imaging Data Radiologist's Impression: Chest X-Ray 04/01/23 02:52 XR chest 1V portable HISTORY: 82 years-old Female resp acute respiratory failure COMPARISON: 03/20/2020 TECHNIQUE: AP view of the chest FINDINGS: Cardiac silhouette is enlarged. 3-lead left subclavian pacer/AICD. Atherosclerosis of the aorta. No pneumothorax, pleural effusion or lobar airspace consolidation. Pulmonary vascular congestion. Bones appear grossly intact. IMPRESSION: Cardiomegaly with pulmonary vascular congestion. ACT 112: Negative or not required by law. The above report was generated using voice recognition software. It may contain grammatical, syntax or spelling errors. Electronically signed by: Larry Ahn M.D. 04/01/2023 7:01 AM Discharge Plan Visit Data Chief Complaint: Syncope Stated Complaint: Passed out ED Provider: Moraima Russo Discharge Problem: Syncope, Pacemaker, Hyponatremia Patient Disposition: Admitted As Inpatient Discharge Instructions Interventions: ED Discharge Assessment Last Done: 04/01/23 08:17
[2023-04-01 03:41] LABS: Basophils # (auto) 0.03 K/uL (0-0.2); Basophils % (auto) 0.3 %; Eosinophils # (auto) 0.07 K/uL (0-0.50); Eosinophils % (auto) 0.6 %; Hematocrit (blood only) 36.8 % (37.0-47.0); Hemoglobin 12.6 g/dl (12.0-16.0); Immature Granulocytes # (auto) 0.04 K/uL (0.01-0.20); Immature Granulocytes % (auto) 0.4 %; Lymphocytes # (auto) 0.99 K/uL (1.2-3.4); Lymphocytes % (auto) 9.2 %; Mean Corpuscular Hemoglobin 31.3 pg (25.0-34.0); Mean Corpuscular Hgb Conc 34.2 g/dL (32.0-36.0); Mean Corpuscular Volume 91.3 fL (80.0-100.0); Mean Platelet Volume 9.4 fL (9.4-12.4); Monocytes # (auto) 1.02 K/uL (0.11-0.59); Monocytes % (auto) 9.5 %; Neutrophils # (auto) 8.63 K/uL (1.40-6.50); Platelet Count 192 K/uL (130-400); RDW Coefficient of Variation 12.6 % (11.5-14.5); RDW Standard Deviation 41.6 fL (36.4-46.3); Red Blood Count 4.03 M/uL (4.20-5.40); White Blood Count 10.78 K/ul (4.8-10.8)
[2023-04-01 04:00] LABS: Albumin Globulin Ratio 1.4 (0.9-2); Albumin Level 4.4 gm/dl (3.4-5.0); BUN Creatinine Ratio 14.9 (10-20); Bilirubin,Total 0.7 mg/dl (0.2-1.0); Calcium 9.4 mg/dl (8.6-10.3); Creatinine Clr Calc Pharmacy 52.1 ml/min; Est GFR (African American) 64.6 ml/min; Est GFR (Non-African American) 55.7 ml/min; Globulin 3.2 gm/dl (2.5-4.0); Magnesium 1.8 mg/dl (1.7-2.4); Potassium 3.7 mmol/L (3.5-5.1); Total Protein 7.6 gm/dl (6.0-8.3)
[2023-04-01 04:15] LABS: Thyroid Stimulating Hormone 4.689 uIu/ml (0.300-4.500)
[2023-04-01 04:51] LABS: T4 Free Thyroxine 1.51 ng/dl (0.61-1.60)
[2023-04-01 05:14] LABS: Appearance Urine Clear (Clear); Bacteria Urine Automated 2+ (Negative); Bilirubin Urine Negative (Negative); Blood Urine Negative (Negative); Color Urine Orange; Epithelial Cell Urine Auto 0-5 /lpf (0-5); Glucose Urine UA Trace (Negative); Ketones Urine Negative (Negative); Leukocyte Esterase Urine 1+ (Negative); Nitrite Urine Positive (Negative); Protein Urine 1+ (Negative); RBC Urine Automated 0-4 /hpf (0-4); Specific Gravity Urine 1.013 (1.000-1.030); Urobilinogen Urine Negative (Negative); pH Urine 6.5 (4.5-7.5)
--- NOTE | 2023-04-01 05:36 | History & Physical Report ---
Date of Service April 01, 2023 Assessment & Plan (1) Hyponatremia: (2) Syncopal episodes: (3) Paroxysmal atrial fibrillation: (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: (5) Anticoagulant long-term use: (6) CKD (chronic kidney disease), stage III: (7) Acute hypersomnolence disorder: (8) Restless legs: (9) Paroxysmal ventricular tachycardia: (10) Polyneuropathy: (11) Cardiomyopathy, nonischemic: (12) Biventricular ICD (implantable cardioverter-defibrillator) in place: Plan Syncopal episodes x2- reports that she has had 4 episodes similar to this this year The patient will be admitted to telemetry for serial cardiac enzymes, serial EKG's, cardiac rhythm monitoring and a 2-D echocardiogram with Dopplers. Differential including but not limited to abnormal heart rhythm, worsening hyponatremia and generalized fatigue, hypotension, adverse reaction to me dication The patient will be admitted to telemetry for serial cardiac enzymes, serial EKG's, cardiac rhythm monitoring and a 2-D echocardiogram with Dopplers. Paroxysmal atrial fibrillation/nonischemic cardiomyopathy/biventricular ICD/hypertension/left bundle branch block/chronic HFrEF- The patient will be admitted to telemetry for serial cardiac enzymes, serial EKG's, cardiac rhythm monitoring and a 2-D echocardiogram with Dopplers. Continue apixaban 5 mg p.o. twice daily, carvedilol 25 mg p.o. twice daily Consider reduction of Entresto from 49/51 twice daily dose Hold furosemide Consult her application packager Dr. Estrada Hyponatremia, acute on chronic- Sodium 124 on admission Serum osmolality 265 Urine osmolality 426 Further management will be left cardiology Her sodium has been averaging in the 129-126 category, but with her symptoms ongoing over the past several months, would consider allowing sodium to get to 130 or so Options include but not limited to: Increase furosemide from 20 mg to 40 mg daily. Fluid restriction. Add sodium chloride tablets. Adjust dosing of Entresto Would suggest increase dosing of furosemide from 20 to 40 mg daily, and reduce dosing of Entresto in half. We will leave medication adjustment to cardiology History of Present Illness Chief Complaint: The patient was brought to the emergency department this evening due to 2 syncopal episodes that happened this evening at home Primary Care Provider: Jairon Hilliard MD The patient is an 82-year-old female with past medical history including paroxysmal atrial fibrillation, ductal carcinoma in situ of left breast, long- term anticoagulant use, chronic HFrEF, CKD stage III, paroxysmal ventricular tachycardia, left bundle branch block, fibromyalgia, nonischemic cardiomyopathy, biventricular ICD and hypertension. The patient had her first episode of syncope after she called out to her that she was feeling faint, and he gently lowered her back to the ground. Second episode occurred minutes later, when the son was there also, and after 20 minutes of no significant activity, EMS was called, and the patient was brought to the ED for assessment. In the ED, the patient's reports that this has been the fourth episode that occurred this year. The patient reports intermittent palpitations times month, and paroxysmal cough for years. Allergies Allergy/AdvReac Type Severity Reaction Status Date / Time duloxetine [From Cymbalta] Allergy Unknown Unknown Verified 04/01/23 02:40 Egg Derived Allergy Unknown Unknown Verified 04/01/23 02:40 ciprofloxacin AdvReac Severe Elaine Verified 04/01/23 02:40 Muscle aches and weakness NSAIDS (Non-Steroidal AdvReac Severe RECTAL Verified 04/01/23 02:40 Anti-Inflamma BLEEDING epinephrine AdvReac Intermediate NERVOUS;INCREASED Verified 04/01/23 02:40 HR meperidine AdvReac Intermediate VOMITING Verified 04/01/23 02:40 nitrofurantoin AdvReac Intermediate upset Verified 04/01/23 02:40 [From Macrobid] stomach Home Medications Medication Instructions Recorded Confirmed Type acetaminophen 500 mg tablet 500 - 1,000 mg PO Q4H PRN Pain 05/20/19 04/01/23 History (Tylenol Extra Strength) carvedilol 25 mg tablet 25 mg PO BID #180 tabs 08/27/22 04/01/23 Rx apixaban 5 mg tablet (Eliquis) 5 mg PO BID #180 tabs 09/24/22 04/01/23 Rx furosemide 20 mg tablet (Lasix) 20 mg PO DAILY #100 tabs 12/02/22 04/01/23 Rx sacubitril 49 mg-valsartan 51 mg 1 tab PO BID #180 tabs 02/21/23 04/01/23 Rx tablet (Entresto) Past Med/Surg History Medical History (Updated 01/30/23 @ 15:58 by Jairon Hilliard MD) Acute bronchitis Acute hypersomnolence disorder Allergic rhinitis Arthritis of knee Biventricular ICD (implantable cardioverter-defibrillator) in place Cardiomyopathy, nonischemic Chronic maxillary sinusitis Chronic sinusitis Dyspnea on exertion Encounter for routine gynecological examination Fatigue Female stress incontinence Fibromyalgia Generalized osteoarthritis of multiple sites Goiter History of varicose veins HTN (hypertension) Hypertrophy of both inferior nasal turbinates Impaired glucose metabolism Joint pain LBBB (left bundle branch block) Malignant neoplasm of breast Nasal septal deviation No pertinent family history Pacemaker Pain of finger of left hand Paroxysmal ventricular tachycardia Polyneuropathy Pre-diabetes Restless legs Snoring Urinary frequency Vitamin D deficiency Surgical History H/O umbilical hernia repair History of breast biopsy History of cholecystectomy History of lumpectomy left breast History of vaginal hysterectomy Hx of colonoscopy Family History Mother Breast cancer Hypertension Cancer Gallbladder disease Brother Hypertension Diabetes Other No pertinent family history Denies family history of Ovarian cancer Prostate cancer Myocardial infarction Colorectal cancer Social History Smoking Status: Unknown if ever smoked Age Started Using Tobacco: 18; Age Quit Using Tobacco: 23; Second Hand Exposure: No; Hx Alcohol Use: No Hx Substance Use: No Preferred Language: Jordanian Communication Ability: Effective Visual Impairment: No Limitations Hearing Ability: Hard of Hearing Principal Trainer Required: No Beliefs That Will Affect Care: None marital status: Current Living Situation: Spouse 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 Feels Safe at Home: Yes Childhood Exposure to Second-Hand Smoke: No Diet: regular Diet Comment: regular caffeine: Yes during the past year weight has: other Dental Care, Regularly: Yes Physical Activity Frequency: Does not Exercise Physical Activity Frequency Comment: limited by physical condition Seatbelt Use: always Sunscreen Use: Yes Assistive Devices: Wheelchair Review of Systems Review of Systems: The patient denies chest pain, shortness of breath, dyspnea on exertion, lower extremity swelling, sore throat, fevers, chills, sweats, nausea, vomiting, diarrhea , constipation, abdominal pain, pelvic pain, blood in urine or stool, dysuria, urinary frequency or urgency, lightheadedness, dizziness, headache, rash, abnormal bruising or bleeding, focal weakness, numbness or tingling in arms or legs, generalized arthralgias or myalgias, back or neck pain, or night sweats. The review of systems is otherwise negative other than for that already noted above, and at least 10 systems have been reviewed. Physical Exam Physical Exam: The patient is awake, alert and oriented 3, well developed and well nourished, normocephalic and atraumatic, lying in bed and in no acute distress. HEENT--PERRL, EOMI, mucous membranes and oropharynx normal Neck--supple. No JVD. No bruits. Thyroid normal, trachea midline, no adenopathy. Heart--normal S1 and S2. No murmurs, rubs or gallops. Lungs--few crackles at the bases bilaterally., no respiratory distress, no accessory muscle use. Abdomen--normal bowel sounds and soft. Nontender. Nondistended. Obese Extremities--no cyanosis or clubbing. No edema. Dermatologic--normal skin turgor, normal color, no abnormal lymph nodes, no rash. Neurologic--cranial nerves II through XII grossly intact. Rheumatologic--normal range of motion, limited exam Psychiatric--normal affect. Results & Data Results & Data Vital Signs (Past 12 Hours) Vital Signs Temp Pulse Resp BP Pulse Ox O2 Del Method 04/01/23 04:00 75 17 121/78 99 Room Air 04/01/23 03:47 75 20 110/72 95 Room Air 04/01/23 02:52 96 Room Air 04/01/23 02:16 76 04/01/23 02:13 36.4 C L 86 16 106/94 98 Room Air Laboratory Results Laboratory Results WBC 10.78 K/ul (4.8-10.8) 04/01/23 03:28 RBC 4.03 M/uL (4.20-5.40) L 04/01/23 03:28 Hgb 12.6 g/dl (12.0-16.0) 04/01/23 03:28 Hct 36.8 % (37.0-47.0) L 04/01/23 03:28 MCV 91.3 fL (80.0-100.0) 04/01/23 03:28 MCH 31.3 pg (25.0-34.0) 04/01/23 03:28 MCHC 34.2 g/dL (32.0-36.0) 04/01/23 03:28 RDW Std Deviation 41.6 fL (36.4-46.3) 04/01/23 03: RDW Coeff of Morgan 12.6 % (11.5-14.5) 04/01/23 03:28 Plt Count 192 K/uL (130-400) 04/01/23 03:28 MPV 9.4 fL (9.4-12.4) 04/01/23 03:28 Immature Gran % (Auto) 0.4 % 04/01/23 03:28 Neut % (Auto) 80.0 % 04/01/23 03:28 Lymph % (Auto) 9.2 % 04/01/23 03:28 Brown % (Auto) 9.5 % 04/01/23 03:28 Eos % (Auto) 0.6 % 04/01/23 03:28 Baso % (Auto) 0.3 % 04/01/23 03:28 Neut # (Auto) 8.63 K/uL (1.40-6.50) H 04/01/23 03:28 Lymph # (Auto) 0.99 K/uL (1.2-3.4) L 04/01/23 03:28 Brown # (Auto) 1.02 K/uL (0.11-0.59) H 04/01/23 03:28 Eos # (Auto) 0.07 K/uL (0-0.50) 04/01/23 03:28 Baso # (Auto) 0.03 K/uL (0-0.2) 04/01/23 03:28 Immature Gran # (Auto) 0.04 K/uL (0.01-0.20) 04/01/23 03:28 Sodium 124 mmol/L (136-145) L 04/01/23 03:28 Potassium 3.7 mmol/L (3.5-5.1) 04/01/23 03:28 Chloride 89 mmol/L (98-107) L 04/01/23 03:28 Carbon Dioxide 26 mmol/L (21-32) 04/01/23 03:28 Anion Gap 9 (3-11) 04/01/23 03:28 BUN 14 mg/dl (6-23) 04/01/23 03:28 Creatinine 0.94 mg/dl (0.6-1.2) 04/01/23 03:28 Est Cr Clr Drug Dosing 52.1 ml/min 04/01/23 03:28 Est GFR ( Amer) 64.6 ml/min 04/01/23 03:28 Est GFR (Non-Af Amer) 55.7 ml/min 04/01/23 03:28 BUN/Creatinine Ratio 14.9 (10-20) 04/01/23 03:28 Glucose 139 mg/dl (70-99(Fasting)) H 04/01/23 03:28 Osmolality 265 mOsm/kg (280-300) L 04/01/23 03:28 Calcium 9.4 mg/dl (8.6-10.3) 04/01/23 03:28 Magnesium 1.8 mg/dl (1.7-2.4) 04/01/23 03:28 Total Bilirubin 0.7 mg/dl (0.2-1.0) 04/01/23 03:28 AST 16 U/L (13-39) 04/01/23 03:28 ALT 9 U/L (7-52) 04/01/23 03:28 Alkaline Phosphatase 55 U/L (34-104) 04/01/23 03:28 Troponin I High Sens 13.0 pg/ml (0-14) 04/01/23 03:28 Total Protein 7.6 gm/dl (6.0-8.3) 04/01/23 03:28 Albumin 4.4 gm/dl (3.4-5.0) 04/01/23 03:28 Globulin 3.2 gm/dl (2.5-4.0) 04/01/23 03:28 Albumin/Globulin Ratio 1.4 (0.9-2) 04/01/23 03:28 TSH 4.689 uIu/ml (0.300-4.500) H 04/01/23 03:28 Free T4 1.51 ng/dl (0.61-1.60) 04/01/23 03:28 Urine Color Murray 04/01/23 05:00 Urine Appearance Clear (Clear) 04/01/23 05:00 Urine pH 6.5 (4.5-7.5) 04/01/23 05:00 Ur Specific [place] 1.013 (1.000-1.030) 04/01/23 05:00 Urine Protein 1+ (Negative) H 04/01/23 05:00 Urine Glucose (UA) Trace (Negative) H 04/01/23 05:00 Urine Ketones Negative (Negative) 04/01/23 05:00 Urine Blood Negative (Negative) 04/01/23 05:00 Urine Nitrite Positive (Negative) A 04/01/23 05:00 Urine Bilirubin Negative (Negative) 04/01/23 05:00 Urine Urobilinogen Negative (Negative) 04/01/23 05:00 Ur Leukocyte Esterase 1+ (Negative) H 04/01/23 05:00 Urine WBC (Auto) 5-10 /hpf (0-5) H 04/01/23 05:00 Urine RBC (Auto) 0-4 /hpf (0-4) 04/01/23 05:00 U Hyaline Cast (Auto) 1-5 /lpf (0-5) 04/01/23 05:00 U Epithel Cells (Auto) 0-5 /lpf (0-5) 04/01/23 05:00 Urine Bacteria (Auto) 2+ (Negative) H 04/01/23 05:00 Urine Osmolality 426 mOsm/kg (500-800) L 04/01/23 05:00 SARS-CoV-2, RNA, NAAT NEGATIVE (NEGATIVE) 04/01/23 05:00 Code Status & VTE Plan Code Status Full code VTE Prophylaxis Plan VTE Prophylaxis will be ordered: Yes PG Care Time/CCT Total # of Minutes Spent Total Time Spent with Patient: Total time spent is greater than 50% in coordination of care (as documented) at patient's floor/unit and/or counseling patient: Coding Level of Care Code 45818 INT INP/OBS CARE 3/75MIN Diagnoses Hyponatremia E87.1 Syncopal episodes R55 Paroxysmal atrial fibrillation I48.0 Ductal carcinoma in situ (DCIS) of left breast D05.12 Anticoagulant long-term use Z79.01 CKD (chronic kidney disease), stage III N18.30 Acute hypersomnolence disorder G47.10 Restless legs G25.81 Paroxysmal ventricular tachycardia I47.2 Polyneuropathy G62.9 Cardiomyopathy, nonischemic I42.8 Biventricular ICD (implantable cardioverter-defibrillator) in place Z95.810
--- NOTE | 2023-04-01 07:03 | XRay Report ---
XR chest 1V portable HISTORY: 82 years-old Female resp acute respiratory failure COMPARISON: 03/20/2020 TECHNIQUE: AP view of the chest FINDINGS: Cardiac silhouette is enlarged. 3-lead left subclavian pacer/AICD. Atherosclerosis of the aorta. No p neumothorax, pleural effusion or lobar airspace consolidation. Pulmonary vascular congestion. Bones a ppear grossly intact. IMPRESSION: Cardiomegaly with pulmonary vascular congestion. ACT 112: Negative or not required by law. The above report was generated using voice recognition software. It may contain grammatical, syntax o r spelling errors. Electronically signed by: Larry Ahn M.D. 04/01/2023 7:01 AM
[2023-04-01] MEDS ORDERED: ONDANSETRON INJ 2 MG/ML 2 ML VIAL IV PRN (09:00)
[2023-04-01] MEDS ORDERED: ACETAMINOPHEN 325 MG TAB PO PRN (09:00)
--- NOTE | 2023-04-01 09:08 | XCELERA ---
[id number]
[2023-04-01] MEDS: carvediloL 25 MG TAB PO SCH ×2 (09:59→17:36)
[2023-04-01] MEDS: APIXABAN 5 MG TABLET PO SCH ×2 (09:59→20:05)
[2023-04-01] MEDS: VALSARTAN/SACUBITRIL 51/49 MG TAB PO SCH ×2 (09:59→20:05)
[2023-04-01] MEDS: FUROSEMIDE 20 MG TAB PO SCH (09:59)
--- NOTE | 2023-04-01 10:37 | Cardiology Consultation ---
Date of Consultation April 01, 2023 Assessment & Plan (1) Loss of consciousness: (2) Biventricular ICD (implantable cardioverter-defibrillator) in place: (3) Cardiomyopathy, nonischemic: (4) Paroxysmal ventricular tachycardia: Plan 1. Loss of consciousness: Her loss of consciousness is quite unusual, the duration without any evidence of laboratory abnormalities suggest that this is not a hemodynamic alteration. In the past I requested that somebody obtain a blood pressure during an event, I do not know that that was done on this occasion and the patient does not know. She is going to ask her if that was done and if not should be done on the next episode (which I suspect will happen). Her device is set to detect any arrhythmia greater than 140 bpm and there were none seen, it is unlikely a heart rate of less than that would result in loss of consciousness for this duration of time but should be picked up on a blood pressure/heart rate measurements discussed present. I suspect these events are cardiac, I suspect they are not due to hypotension but that would require a blood pressure measurement. Data stored in the device show a gradual decline in exercise over the last year. 2. Biventricular ICD: ICD evaluation was performed today with interrogation, evaluation of pacing and sensing characteristics, battery longevity and collected data. Battery life remains acceptable and thresholds are stable. She has intact sinus function and AV conduction therefore transient lead malfunction would not result in an event such as this. There have been no significant atrial arrhythmias since last evaluation (it will identify anything over 140 bpm). Only brief nonsustained ventricular tachycardia identified, none in the last several days and does not explain her presentation. There has been no therapy for ventricular arrhythmias. 3. Cardiomyopathy: On her current medical regimen her left ventricular function has gradually been improving. I would hesitate to decrease her medications without finding something objective (such as hypertension) which would necessitate that. 4. NSVT she has had nonsustained ventricular tachycardia identified in the past, she has had several episodes recently but nothing corresponding to last few days and these tend to be 1 to 2 seconds in duration and do not explain her presentation. These episodes have not changed in frequency over the last year. 5. Decreasing activity: Device monitoring (using the activity sensor) shows a gradual but steady drop in activity over the last year. The cause of this is not clear, the patient is aware of this but does not have any specific symptoms to explain it. History of Present Illness Reason for Consultation: Loss of consciousness Attending Physician: Adrien Tolentino MD Allergies Allergy/AdvReac Type Severity Reaction Status Date / Time duloxetine [From Cymbalta] Allergy Unknown Unknown Verified 04/01/23 02:40 Egg Derived Allergy Unknown Unknown Verified 04/01/23 02:40 ciprofloxacin AdvReac Severe Elaine Verified 04/01/23 02:40 Muscle aches and weakness NSAIDS (Non-Steroidal AdvReac Severe RECTAL Verified 04/01/23 02:40 Anti-Inflamma BLEEDING epinephrine AdvReac Intermediate NERVOUS;INCREASED Verified 04/01/23 02:40 HR meperidine AdvReac Intermediate VOMITING Verified 04/01/23 02:40 nitrofurantoin AdvReac Intermediate upset Verified 04/01/23 02:40 [From Macrobid] stomach Home Medications Medication Instructions Recorded Confirmed Type acetaminophen 500 mg tablet 500 - 1,000 mg PO Q4H PRN Pain 05/20/19 04/01/23 History (Tylenol Extra Strength) carvedilol 25 mg tablet 25 mg PO BID #180 tabs 08/27/22 04/01/23 Rx apixaban 5 mg tablet (Eliquis) 5 mg PO BID #180 tabs 09/24/22 04/01/23 Rx furosemide 20 mg tablet (Lasix) 20 mg PO DAILY #100 tabs 12/02/22 04/01/23 Rx sacubitril 49 mg-valsartan 51 mg 1 tab PO BID #180 tabs 02/21/23 04/01/23 Rx tablet (Entresto) Patient History Medical History (Updated 04/01/23 @ 10:31 by Sung Estrada MD) Acute bronchitis Acute hypersomnolence disorder Allergic rhinitis Arthritis of knee Biventricular ICD (implantable cardioverter-defibrillator) in place Cardiomyopathy, nonischemic Chronic maxillary sinusitis Chronic sinusitis Dyspnea on exertion Encounter for routine gynecological examination Fatigue Female stress incontinence Fibromyalgia Generalized osteoarthritis of multiple sites Goiter History of varicose veins HTN (hypertension) Hypertrophy of both inferior nasal turbinates Impaired glucose metabolism Joint pain LBBB (left bundle branch block) Malignant neoplasm of breast Nasal septal deviation No pertinent family history Pacemaker Pain of finger of left hand Paroxysmal ventricular tachycardia Polyneuropathy Pre-diabetes Restless legs Snoring Urinary frequency Vitamin D deficiency Surgical History H/O umbilical hernia repair History of breast biopsy History of cholecystectomy History of lumpectomy left breast History of vaginal hysterectomy Hx of colonoscopy Family History Mother Breast cancer Hypertension Cancer Gallbladder disease Brother Hypertension Diabetes Other No pertinent family history Denies family history of Ovarian cancer Prostate cancer Myocardial infarction Colorectal cancer Social History Smoking Status: Former smoker Age Started Using Tobacco: 18; Age Quit Using Tobacco: 23; Second Hand Exposure: No; Hx Alcohol Use: No Hx Substance Use: No Preferred Language: Gambian Communication Ability: Effective Visual Impairment: No Limitations Hearing Ability: Hard of Hearing 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 Stamping Required: No Beliefs That Will Affect Care: None marital status: Current Living Situation: Spouse and Family 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 Other Information That Helps Us Care for You: No Feels Safe at Home: Yes Safety Concerns: Feels Safe At This Time Childhood Exposure to Second-Hand Smoke: No Diet: regular Diet Comment: regular caffeine: Yes during the past year weight has: other Dental Care, Regularly: Yes Physical Activity Frequency: Does not Exercise Physical Activity Frequency Comment: limited by physical condition Seatbelt Use: always Sunscreen Use: Yes Assistive Devices: Cane and Glasses Review of Systems Review of Systems: All systems reviewed & are unremarkable except as noted in HPI & below Physical Exam Physical Exam: Constitutional: Alert, cooperative and in no distress. She is sitting in bed HEENT: Unremarkable Neck: No jugular venous distention, carotid pulses are normal and equal susana aterally without bruits. Pulmonary: Clear to auscultation bilaterally. Cardiac: Regular rhythm with no murmur, gallop or rub. Abdomen: Soft, nontender with normal bowel sounds. Extremities: No edema. Distal pulses intact. Neurologic: No focal findings. Skin: The device site is well-healed without erythema, swelling or tenderness. No rash, ecchymoses or petechiae Results & Data Vital Signs (Past 12 Hours) Vital Signs Temp Pulse Pulse Resp BP BP Pulse Ox 04/01/23 08:17 36.6 C 73 18 118/81 96 06/06/23 07:04 63 18 115/77 95 04/01/23 06:00 72 18 112/70 95 04/01/23 06:11 76 04/01/23 05:01 70 18 110/57 L 98 04/01/23 04:00 75 17 121/78 99 04/01/23 03:47 75 20 110/72 95 04/01/23 02:52 96 04/01/23 02:16 76 04/01/23 02:13 36.4 C L 86 16 106/94 98 O2 Del Method 04/01/23 08:17 Room Air 04/01/23 07:04 Room Air 04/01/23 06:00 Room Air 04/01/23 06:11 04/01/23 05:01 Room Air 04/01/23 04:00 Room Air 04/01/23 03:47 Room Air 04/01/23 02:52 Room Air 04/01/23 02:16 04/01/23 02:13 Room Air Laboratory Results Cardiac Enzymes 04/01/23 Range/Units 03:28 AST 16 (13-39) U/L Troponin I High Sens 13.0 (0-14) pg/ml CBC 04/01/23 Range/Units 03:28 WBC 10.78 (4.8-10.8) K/ul RBC 4.03 L (4.20-5.40) M/uL Hgb 12.6 (12.0-16.0) g/dl Hct 36.8 L (37.0-47.0) % Plt Count 192 (130-400) K/uL Neut # (Auto) 8.63 H (1.40-6.50) K/uL Lymph # (Auto) 0.99 L (1.2-3.4) K/uL [place] # (Auto) 1.02 H (0.11-0.59) K/uL Eos # (Auto) 0.07 (0-0.50) K/uL Baso # (Auto) 0.03 (0-0.2) K/uL Comprehensive Metabolic Panel 04/01/23 Range/Units 03:28 Sodium 124 L (136-145) mmol/L Potassium 3.7 (3.5-5.1) mmol/L Chloride 89 L (98-107) mmol/L Carbon Dioxide 26 (21-32) mmol/L BUN 14 (6-23) mg/dl Creatinine 0.94 (0.6-1.2) mg/dl Glucose 139 H (70-99(Fasting)) mg/dl Calcium 9.4 (8.6-10.3) mg/dl AST 16 (13-39) U/L ALT 9 (7-52) U/L Alkaline Phosphatase 55 (34-104) U/L Total Protein 7.6 (6.0-8.3) gm/dl Albumin 4.4 (3.4-5.0) gm/dl Intake and Output 03/31/23 04/01/23 04/01/23 22:59 06:59 14:59 Other: Weight 99.6 kg 99.6 kg Weight Measurement Method Built in [facility] Last Office Visit Patient Weight 04/02/23 06:59 Weight 99.6 kg Diagnostic Findings Telemetry: Predominantly AV paced, frequent PVCs, no other. Device interrogation: No significant arrhythmias since last evaluation. PG Care Time/CCT Total # of Minutes Spent Total Time Spent with Patient: Total time spent is greater than 50% in coordination of care (as documented) at patient's floor/unit and/or counseling patient: Coding Diagnoses Loss of consciousness R40.20 Biventricular ICD (implantable cardioverter-defibrillator) in place Z95.810 Cardiomyopathy, nonischemic I42.8 Paroxysmal ventricular tachycardia I47.2
[2023-04-01] MEDS: cefTRIAXone SODIUM 2,000 MG in DEXTROSE 5% 50 ML IV SCH (15:25)
--- NOTE | 2023-04-01 17:28 | Nephrology Consultation ---
Date of Consultation April 01, 2023 Assessment & Plan (1) Hyponatremia: Chronic. Moderate. Appears generally asymptomatic. Volume status acceptable. I suspect poor oral solute is contributing. Possible reset osmostat or chronic SIADH. Avoid correcting too rapidly. Avoid vaptans. No orthostatic changes in vitals per report. Free water restriction and Urea therapy will be implemented now. Document strict I/O's. Will obtain repeat sodium tonight to monitor. Repeat metabolic profile tomorrow AM. Monitor thyroid function closely with low threshold for replacement of any clinical hypothyroidism. (2) Syncopal episodes: Appreciated cardiology consultation. Etiology unclear. I do not suspect hyponatremia is contributing. (3) Chronic systolic congestive heart failure: Volume status acceptable. Remains on goal directed therapy. Tolerating therapy w ell. Continue furosemide as Rx. History of Present Illness Reason for Consultation: acute/chronic hyponatremia Requesting Physician: Adrien Tolentino MD Attending Physician: Adrien Tolentino MD History of Present Illness Kathrin Carrillo is an 82-year-old female with a complex cardiac history including non-ischemic cardiomyopathy initially identified in 2010 with clear coronary arteries at that time, paroxysmal atrial fibrillation, paroxysmal ventricular tachycardia, HFrEF, BiV pacer/ICD, and multiple syncopal episodes. Medical history also notable for DCIS left breast resected in 2004 and hypertension.She presented to the ER at [facility] overnight s/p witnessed syncopal episode with LOC at home. Kathrin had initially called out to her from the bathroom with a sensation of presyncope. She has had similar episodes in the past. She was lowered to the ground and had witnessed LOC when sitting back up after initial improvement in symptoms. She denies chest pains or palpitations. She does have chronic intermittent palpitations at other times. She was transferred to [facility] by EMS called to her home. No events on tele monitor. Volume status controlled with furosemide 20 mg daily at home. BP has been acceptable. Cardiac functioning improvign with medical management. Appetite fair. Denies vomiting or diarrhea. Mild nausea which has been chronic. Nothing concerning was noted on pacemaker interrogation. TTE reviewed. Kathrin did have incontinence of urine but she has a history of chronic incontinence at night and it does not appear to be associated with the event. The patient was discussed with Dr. Sultana this afternoon. Nephrology consultation requested for hyponatremia. Serum sodium measured at 124 mmol/L on admission and stable at 124 mmol/L on repeat. Electrolytes otherwise normal. Serum creatinine stable at 0.9 mg/dL. Urine osmolality 426. Kathrin has chronic hyponatremia, serum sodium ranging from 126-129 mmol/L over the past year per labs. Sodium not greater than 132 mmol/L since 2020. TSH 4.6. History of multinodular thyroid with prior reassuring biopsy. CXR demonstrating cardiomegaly and some pulmonary vascular congestion. RN reported that Kathrin had very little urine output throughout the shift. Random bladder scan reported 400 ml. She reportedly voided a small amount following this. Urine concentrated in appearance. Allergies Allergy/AdvReac Type Severity Reaction Status Date / Time duloxetine [From Cymbalta] Allergy Unknown Unknown Verified 04/01/23 02:40 Egg Derived Allergy Unknown Unknown Verified 04/01/23 02:40 ciprofloxacin AdvReac Severe Elaine Verified 04/01/23 02:40 Muscle aches and weakness NSAIDS (Non-Steroidal AdvReac Severe RECTAL Verified 04/01/23 02:40 Anti-Inflamma BLEEDING epinephrine AdvReac Intermediate NERVOUS;INCREASED Verified 04/01/23 02:40 HR meperidine AdvReac Intermediate VOMITING Verified 04/01/23 02:40 nitrofurantoin AdvReac Intermediate upset Verified 04/01/23 02:40 [From Macrobid] stomach Home Medications Medication Instructions Recorded Confirmed Type acetaminophen 500 mg tablet 500 - 1,000 mg PO Q4H PRN Pain 05/20/19 04/01/23 History (Tylenol Extra Strength) carvedilol 25 mg tablet 25 mg PO BID #180 tabs 08/27/22 04/01/23 Rx apixaban 5 mg tablet (Eliquis) 5 mg PO BID #180 tabs 09/24/22 04/01/23 Rx furosemide 20 mg tablet (Lasix) 20 mg PO DAILY #100 tabs 12/02/22 04/01/23 Rx sacubitril 49 mg-valsartan 51 mg 1 tab PO BID #180 tabs 02/21/23 04/01/23 Rx tablet (Entresto) Patient History Medical History Acute bronchitis Acute hypersomnolence disorder Allergic rhinitis Arthritis of knee Biventricular ICD (implantable cardioverter-defibrillator) in place Cardiomyopathy, nonischemic Chronic maxillary sinusitis Chronic sinusitis Dyspnea on exertion Encounter for routine gynecological examination Fatigue Female stress incontinence Fibromyalgia Generalized osteoarthritis of multiple sites Goiter History of varicose veins HTN (hypertension) Hypertrophy of both inferior nasal turbinates Impaired glucose metabolism Joint pain LBBB (left bundle branch block) Malignant neoplasm of breast Nasal septal deviation No pertinent family history Pacemaker Pain of finger of left hand Paroxysmal ventricular tachycardia Polyneuropathy Pre-diabetes Restless legs Snoring Urinary frequency Vitamin D deficiency Surgical History H/O umbilical hernia repair History of breast biopsy History of cholecystectomy History of lumpectomy left breast History of vaginal hysterectomy Hx of colonoscopy Family History Mother Breast cancer Hypertension Cancer Gallbladder disease Brother Hypertension Diabetes Other No pertinent family history Denies family history of Ovarian cancer Prostate cancer Myocardial infarction Colorectal cancer Social History Smoking Status: Former smoker Age Started Using Tobacco: 18; Age Quit Using Tobacco: 23; Second Hand Exposure: No; Hx Alcohol Use: No Hx Substance Use: No Preferred Language: Indonesian Communication Ability: Effective Visual Impairment: No Limitations Hearing Ability: Hard of Hearing [employer] Required: No Beliefs That Will Affect Care: None marital status: Current Living Situation: Spouse and Family 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 Other Information That Helps Us Care for You: No Feels Safe at Home: Yes Safety Concerns: Feels Safe At This Time Childhood Exposure to Second-Hand Smoke: No Diet: regular Diet Comment: regular caffeine: Yes during the past year weight has: other Dental Care, Regularly: Yes Physical Activity Frequency: Does not Exercise Physical Activity Frequency Comment: limited by physical condition Seatbelt Use: always Sunscreen Use: Yes Assistive Devices: Cane and Glasses Review of Systems Review of Systems: All systems reviewed & are unremarkable except as noted in HPI & below Physical Exam Constitutional: well developed and + obese; no acute distress Eyes: + anicteric sclerae; no corneal abnormality ENMT: Mouth: no oral mucosal abnormality and oral mucous membranes not dry Neck: normal visual inspection and trachea midline Respiratory: normal respiratory effort Auscultation: lungs clear to auscultation bilaterally Cardiovascular: Rate/Rhythm: regular rate Heart Sounds: normal S1 and normal S2 Extremities: no edema Musculoskeletal: Extremities: no cyanosis and no clubbing Skin: + turgor decreased; no jaundice Neurologic: Motor/Sensory: no tremor and no asterixis Psychiatric: Orientation: alert and oriented x 3 Results & Data Vital Signs (Past 12 Hours) Vital Signs Temp Pulse Pulse Resp BP BP Pulse Ox 04/01/23 14:56 91 H 131/77 04/01/23 14:55 87 118/80 04/01/23 14:54 104/57 L 04/01/23 09:00 36.8 C 98 H 18 128/75 96 04/01/23 08:17 36.6 C 73 18 118/81 96 04/01/23 07:04 63 18 115/77 95 04/01/23 06:00 72 18 112/70 95 04/01/23 06:11 76 O2 Del Method 04/01/23 14:56 04/01/23 14:55 04/01/23 14:54 04/01/23 09:00 Room Air 04/01/23 08:17 Room Air 04/01/23 07:04 Room Air 04/01/23 06:00 Room Air 04/01/23 06:11 Laboratory Results Laboratory Results - last 24 hr 04/01/23 04/01/23 04/01/23 03:28 03:28 03:28 WBC 10.78 RBC 4.03 L Hgb 12.6 Hct 36.8 L MCV 91.3 MCH 31.3 MCHC 34.2 RDW Std Deviation 41.6 RDW Coeff of Morgan 12.6 Plt Count 192 MPV 9.4 Immature Gran % (Auto) 0.4 Neut % (Auto) 80.0 Lymph % (Auto) 9.2 [place] % (Auto) 9.5 Eos % (Auto) 0.6 Baso % (Auto) 0.3 Neut # (Auto) 8.63 H Lymph # (Auto) 0.99 L [place] # (Auto) 1.02 H Eos # (Auto) 0.07 Baso # (Auto) 0.03 Immature Gran # (Auto) 0.04 Sodium 124 L Potassium 3.7 Chloride 89 L Carbon Dioxide 26 Anion Gap 9 BUN 14 Creatinine 0.94 Est Cr Clr Drug Dosing 52.1 Est GFR ( Amer) 64.6 Est GFR (Non-Af Amer) 55.7 BUN/Creatinine Ratio 14.9 Glucose 139 H Osmolality Calcium 9.4 Magnesium 1.8 Total Bilirubin 0.7 AST 16 ALT 9 Alkaline Phosphatase 55 Troponin I High Sens 13.0 Total Protein 7.6 Albumin 4.4 Globulin 3.2 Albumin/Globulin Ratio 1.4 TSH 4.689 H Free T4 1.51 Urine Color Urine Appearance Urine pH Ur Specific [place] Urine Protein Urine Glucose (UA) Urine Ketones Urine Blood Urine Nitrite Urine Bilirubin Urine Urobilinogen Ur Leukocyte Esterase Urine WBC (Auto) Urine RBC (Auto) U Hyaline Cast (Auto) U Epithel Cells (Auto) Urine Bacteria (Auto) Urine Osmolality SARS-CoV-2, RNA, NAAT 04/01/23 04/01/23 04/01/23 03:28 05:00 05:00 WBC RBC Hgb Hct MCV MCH MCHC RDW Std Deviation RDW Coeff of Morgan Plt Count MPV Immature Gran % (Auto) Neut % (Auto) Lymph % (Auto) [place] % (Auto) Eos % (Auto) Baso % (Auto) Neut # (Auto) Lymph # (Auto) [place] # (Auto) Eos # (Auto) Baso # (Auto) Immature Gran # (Auto) Sodium Potassium Chloride Carbon Dioxide Anion Gap BUN Creatinine Est Cr Clr Drug Dosing Est GFR ( Amer) Est GFR (Non-Af Amer) BUN/Creatinine Ratio Glucose Osmolality 265 L Calcium Magnesium Total Bilirubin AST ALT Alkaline Phosphatase Troponin I High Sens Total Protein Albumin Globulin Albumin/Globulin Ratio TSH Free T4 Urine Color [place] Urine Appearance Clear Urine pH 6.5 Ur Specific [place] 1.013 Urine Protein 1+ H Urine Glucose (UA) Trace H Urine Ketones Negative Urine Blood Negative Urine Nitrite Positive A Urine Bilirubin Negative Urine Urobilinogen Negative Ur Leukocyte Esterase 1+ H Urine WBC (Auto) 5-10 H Urine RBC (Auto) 0-4 U Hyaline Cast (Auto) 1-5 U Epithel Cells (Auto) 0-5 Urine Bacteria (Auto) 2+ H Urine Osmolality SARS-CoV-2, RNA, NAAT NEGATIVE 04/01/23 04/01/23 05:00 11:15 WBC RBC Hgb Hct MCV MCH MCHC RDW Std Deviation RDW Coeff of Morgan Plt Count MPV Immature Gran % (Auto) Neut % (Auto) Lymph % (Auto) [place] % (Auto) Eos % (Auto) Baso % (Auto) Neut # (Auto) Lymph # (Auto) [place] # (Auto) Eos # (Auto) Baso # (Auto) Immature Gran # (Auto) Sodium 124 L Potassium Chloride Carbon Dioxide Anion Gap BUN Creatinine Est Cr Clr Drug Dosing Est GFR ( Amer) Est GFR (Non-Af Amer) BUN/Creatinine Ratio Glucose Osmolality Calcium Magnesium Total Bilirubin AST ALT Alkaline Phosphatase Troponin I High Sens Total Protein Albumin Globulin Albumin/Globulin Ratio TSH Free T4 Urine Color Urine Appearance Urine pH Ur Specific [place] Urine Protein Urine Glucose (UA) Urine Ketones Urine Blood Urine Nitrite Urine Bilirubin Urine Urobilinogen Ur Leukocyte Esterase Urine WBC (Auto) Urine RBC (Auto) U Hyaline Cast (Auto) U Epithel Cells (Auto) Urine Bacteria (Auto) Urine Osmolality 426 L SARS-CoV-2, RNA, NAAT Diagnostic Findings XR chest 1V portable Cardiac silhouette is enlarged. 3-lead left subclavian pacer/AICD. Atherosclerosis of the aorta. No pneumothorax, pleural effusion or lobar airspace consolidation. Pulmonary vascular congestion. Bones appear grossly intact. IMPRESSION: Cardiomegaly with pulmonary vascular congestion. Transthoracic echocardiogram: Mildly dilated LV with LVEF 40-45%, severe hypokinesis to akinesis inferior base and inferoseptal based with mild global hypokinesis, mild concentric LVH, normal RVSP. PG Care Time/CCT Total # of Minutes Spent Total Time Spent with Patient: Total time spent is greater than 50% in coordination of care (as documented) at patient's floor/unit and/or counseling patient: Coding Level of Care Code 25094 IN/OBS CONSULT LVL 4,60M Diagnoses Hyponatremia E87.1 Syncopal episodes R55 Chronic systolic congestive heart failure I50.22
[2023-04-02] MEDS: UREA (UREA-NA) 15 GM PACK PO SCH ×5 (00:39→22:34)
[2023-04-02 04:25] LABS: Potassium Random Urine 13.4 mmol/L
--- NOTE | 2023-04-02 05:05 | Communication Note ---
Date of Service: April 01, 2023 Saw patient in the afternoon She was resting comfortably Stated that she felt dizzy and lightheaded at home yesterday prior to her episodes of passing out Labs from admission reviewed Repeat Na 124 this afternoon Exam - gen - NAD mouth - MMM neck - no JVD heart - RRR, s1 s2 lungs - mild fine rales bases abd - soft NT ND BS+ ext - no edema, pulses 2+ b/l u/a suggestive of UTI; urine cx pending A/P: 1. acute on chronic hyponatremia - consulted Dr Merino from nephrology; appreciate his assistance; serial Na levels patient appears euvolemic today 2. chronic systolic CHF - EF 40-45% on echo (EF improved relative to prior echo) - compensated; cont BB, Entresto, lasix 3. possible UTI - rocephin 4. syncope x 2 - pacemaker interrogated; no dysrhythmia to account for the syncope; etiology? 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
[2023-04-02 06:59] LABS: Basophils # (auto) 0.02 K/uL (0-0.2); Basophils % (auto) 0.3 %; Eosinophils # (auto) 0.07 K/uL (0-0.50); Eosinophils % (auto) 0.9 %; Hematocrit (blood only) 32.6 % (37.0-47.0); Hemoglobin 11.4 g/dl (12.0-16.0); Immature Granulocytes # (auto) 0.03 K/uL (0.01-0.20); Immature Granulocytes % (auto) 0.4 %; Lymphocytes # (auto) 1.15 K/uL (1.2-3.4); Lymphocytes % (auto) 14.6 %; Mean Corpuscular Hemoglobin 30.9 pg (25.0-34.0); Mean Corpuscular Volume 88.3 fL (80.0-100.0); Mean Platelet Volume 9.3 fL (9.4-12.4); Monocytes # (auto) 0.94 K/uL (0.11-0.59); Monocytes % (auto) 11.9 %; Neutrophils # (auto) 5.69 K/uL (1.40-6.50); Neutrophils % (auto) 71.9 %; Platelet Count 196 K/uL (130-400); RDW Coefficient of Variation 12.6 % (11.5-14.5); RDW Standard Deviation 40.7 fL (36.4-46.3); Red Blood Count 3.69 M/uL (4.20-5.40)
[2023-04-02 07:44] LABS: Albumin Globulin Ratio 1.5 (0.9-2); Albumin Level 3.7 gm/dl (3.4-5.0); BUN Creatinine Ratio 60.3 (10-20); Bilirubin,Total 0.6 mg/dl (0.2-1.0); Creatinine Clr Calc Pharmacy 66.1 ml/min; Est GFR (African American) 87.7 ml/min; Est GFR (Non-African American) 75.6 ml/min; Globulin 2.4 gm/dl (2.5-4.0); Magnesium 1.9 mg/dl (1.7-2.4); Potassium 4.2 mmol/L (3.5-5.1); Total Protein 6.1 gm/dl (6.0-8.3)
[2023-04-02] MEDS: APIXABAN 5 MG TABLET PO SCH ×2 (08:15→20:44)
[2023-04-02] MEDS: FUROSEMIDE 20 MG TAB PO SCH (08:15)
[2023-04-02] MEDS: VALSARTAN/SACUBITRIL 51/49 MG TAB PO SCH ×2 (08:18→20:44)
[2023-04-02] MEDS: carvediloL 25 MG TAB PO SCH ×2 (09:30→17:09)
[2023-04-02] MEDS ORDERED: OPTIRAY 320 500ml IV ONE (10:14)
--- NOTE | 2023-04-02 10:28 | CT Scan Report ---
UNENHANCED CT OF THE BRAIN; CT ANGIOGRAM OF THE BRAIN; CT ANGIOGRAM OF THE NECK CLINICAL HISTORY: Syncope. COMPARISON STUDY: CT angiogram of the head and neck dated 05/16/2019. TECHNIQUE: Unenhanced axial CT scan of the brain is performed. Subsequently, following the IV adminis tration of 115 of [address] 320, CT angiogram of the head and neck was performed from the aortic arch t o the vertex. Images are reviewed in the axial, sagittal, and coronal planes. 3-D MIPS images are cre ated and assessed. IV contrast was administered without complication. All measurements were calculate d based on NASCET criteria. A dose lowering technique was utilized adhering to the principles of ALA RA. There is significant streak artifact from dental amalgam. CT DOSE: 1288.93 mGy.cm FINDINGS: Brain parenchyma: There is age related involutional change noting advanced confluent subcortical and periventricular microangiopathic disease. There is no hemorrhage, mass effect, or evidence of acute t erritorial ischemia by CT criteria. There is no evidence of enhancing mass lesion on the angiogram ph ase images. The ventricles, sulci, and cisterns are prominent secondary to additional change. Padilla-wh ite matter differentiation is preserved. No extra-axial fluid collection is seen. Thoracic aorta: Visualized portions of the thoracic aorta are normal in caliber. The aortic arch demo nstrates bovine variant anatomy. Right carotid arterial system: The right common carotid artery is widely patent, as are the right int ernal and external carotid arteries. Calcified plaque is noted in the carotid bulb. Left carotid arterial system: The left common carotid artery is widely patent, as are the left research program internship al and external carotid arteries. Calcified plaque is noted in the carotid bulb. Vertebral arteries: The vertebral arteries are patent bilaterally noting left-sided dominance. Subclavian arteries: Widely patent bilaterally. Intracranial vasculature: There is atherosclerotic calcification of the cavernous carotid arteries. T he internal carotid arteries are patent at the skull base, as are the anterior and middle cerebral ar teries bilaterally. The right A1 segment is atretic. The vertebrobasilar system and posterior cerebra l arteries are widely patent. The left vertebral artery is dominant. There is origin of both po sterior cerebral arteries. There is no aneurysm, high-grade stenosis, or focal vessel cut off seen th roughout the intracranial circulation. Jugular veins: Patent bilaterally. Dural sinuses: Patent. Lung apices: Partially visualized upper lobe lung parenchyma appears clear. Soft tissues: The visualized pharyngeal soft tissues are normal in appearance noting angiographic pha se technique. The oropharyngeal airway appears widely patent. The thyroid gland is mildly enlarged an d heterogeneous. The salivary glands are normal in appearance. No cervical lymphadenopathy is seen. P acemaker leads are noted at the left thoracic inlet. Skeletal structures: The skeletal structures are osteopenic. The calvarium appears intact. The cervic al spine is maintained noting advanced multilevel spondylosis. No lytic or blastic lesion is seen. Orbits: The bony orbits are intact. Orbital contents are normal as visualized noting bilateral ocular lens implant9. Sinuses and mastoids: There is trace mucosal thickening within the maxillary antra and the sphenoid s inuses. The remaining paranasal sinuses are clear. The mastoid air cells are well pneumatized. IMPRESSION: 1. There is no hemorrhage, mass effect, or evidence of acute territorial ischemia by CT criteria. 2. Unremarkable CT angiogram of the brain. 3. Unremarkable CT angiogram of the neck. ACT 112: Negative or not required by law. Electronically signed by: Kiran Burden M.D. 04/02/2023 10:25 AM
--- NOTE | 2023-04-02 11:23 | Nephrology Progress Note ---
Date of Service April 02, 2023 Assessment & Plan (1) Hyponatremia: Plan: Chronic. Moderate. Appears asymptomatic. Volume status acceptable. I suspect poor oral solute is contributing. Possible reset osmostat or chronic SIADH. Avoid correcting too rapidly. Avoid vaptans. No orthostatic changes in vitals noted yesterday. Continue free water restriction and Urea therapy as Rx. Repeat Uosm requested. Repeat serum sodium at noon ordered. Document strict I/O's. Monitor thyroid function closely with low threshold for replacement of any clinical hypothyroidism. (2) Syncopal episodes: Plan: Appreciated cardiology consultation. Etiology unclear. No orthostatic changes in vitals. No issues on tele. (3) Chronic systolic congestive heart failure: Plan: Volume status acceptable. Remains on goal directed therapy. Tolerating therapy well. Continue furosemide as Rx. Admission and Anticipated Discharge Date Admission Date: April 01, 2023 Subjective No acute events overnight. Kathrin is resting comfortably in bed. Appetite fair. Tea and toast for breakfast. Denies nausea, abdominal pain, or any GI symptoms. Tolerating Urea therapy. No fluid retention or edema. BP acceptable. Review of Systems Review of Systems: All systems reviewed & are unremarkable except as noted in HPI & below Physical Exam Constitutional: well developed and + obese; no acute distress Eyes: + anicteric sclerae; no corneal abnormality ENMT: Mouth: no oral mucosal abnormality and oral mucous membranes not dry Neck: normal visual inspection and trachea midline Respiratory: normal respiratory effort Auscultation: lungs clear to auscultation bilaterally Cardiovascular: Rate/Rhythm: regular rate Heart Sounds: normal S1 and normal S2 Extremities: no edema Musculoskeletal: Extremities: no cyanosis and no clubbing Skin: + turgor decreased; no jaundice Neurologic: Motor/Sensory: no tremor and no asterixis Psychiatric: Orientation: alert and oriented x 3 Results & Data Vital Signs (Past 12 Hours) Vital Signs Temp Pulse Pulse Resp BP Pulse Ox O2 Del Method 04/02/23 10:42 36.4 C L 60 18 136/78 93 Room Air 04/02/23 08:43 36.3 C L 75 18 108/70 93 Room Air 04/02/23 08:04 73 04/02/23 03:00 36.8 C 77 21 125/70 93 Room Air Laboratory Results Laboratory Results - last 24 hr 04/01/23 04/01/23 04/02/23 11:15 21:05 03:42 WBC RBC Hgb Hct MCV MCH MCHC RDW Std Deviation RDW Coeff of Morgan Plt Count MPV Immature Gran % (Auto) Neut % (Auto) Lymph % (Auto) [place] % (Auto) Eos % (Auto) Baso % (Auto) Neut # (Auto) Lymph # (Auto) [place] # (Auto) Eos # (Auto) Baso # (Auto) Immature Gran # (Auto) Sodium 124 L 123 L Potassium Chloride Carbon Dioxide Anion Gap BUN Creatinine Est Cr Clr Drug Dosing Est GFR ( Amer) Est GFR (Non-Af Amer) BUN/Creatinine Ratio Glucose Calcium Magnesium Total Bilirubin AST ALT Alkaline Phosphatase Total Protein Albumin Globulin Albumin/Globulin Ratio Ur Random Sodium 20 Ur Random Potassium 13.4 04/02/23 04/02/23 06:32 06:32 WBC 7.90 RBC 3.69 L Hgb 11.4 L Hct 32.6 L MCV 88.3 MCH 30.9 MCHC 35.0 RDW Std Deviation 40.7 RDW Coeff of Morgan 12.6 Plt Count 196 MPV 9.3 L Immature Gran % (Auto) 0.4 Neut % (Auto) 71.9 Lymph % (Auto) 14.6 [place] % (Auto) 11.9 Eos % (Auto) 0.9 Baso % (Auto) 0.3 Neut # (Auto) 5.69 Lymph # (Auto) 1.15 L [place] # (Auto) 0.94 H Eos # (Auto) 0.07 Baso # (Auto) 0.02 Immature Gran # (Auto) 0.03 Sodium 126 L Potassium 4.2 Chloride 92 L Carbon Dioxide 28 Anion Gap 6 BUN 44 H D Creatinine 0.73 Est Cr Clr Drug Dosing 66.1 Est GFR ( Amer) 87.7 Est GFR (Non-Af Amer) 75.6 BUN/Creatinine Ratio 60.3 H Glucose 108 H Calcium 9.0 Magnesium 1.9 Total Bilirubin 0.6 AST 14 ALT 8 Alkaline Phosphatase 40 Total Protein 6.1 Albumin 3.7 Globulin 2.4 L Albumin/Globulin Ratio 1.5 Ur Random Sodium Ur Random Potassium PG Care Time/CCT Total # of Minutes Spent Total Time Spent with Patient: Total time spent is greater than 50% in coordination of care (as documented) at patient's floor/unit and/or counseling patient: Coding Level of Care Code 24915 SUB INP/OBS CARE 50MIN Diagnoses Hyponatremia E87.1 Syncopal episodes R55 Chronic systolic congestive heart failure I50.22
[2023-04-02] MEDS: cefTRIAXone SODIUM 2,000 MG in DEXTROSE 5% 50 ML IV SCH (14:43)
--- NOTE | 2023-04-02 15:06 | Electroencephalogram ---
EEG Procedure Note Date of Service April 02, 2023 Start / End Times Start Time: 1321 End Time: [address] Tolentino History 82-year-old with frequent episodes of syncope Home Medication List Medication Instructions Recorded Confirmed Type acetaminophen 500 mg tablet 500 - 1,000 mg PO Q4H PRN Pain 05/20/19 04/01/23 History (Tylenol Extra Strength) carvedilol 25 mg tablet 25 mg PO BID #180 tabs 08/27/22 04/01/23 Rx apixaban 5 mg tablet (Eliquis) 5 mg PO BID #180 tabs 09/24/22 04/01/23 Rx furosemide 20 mg tablet (Lasix) 20 mg PO DAILY #100 tabs 12/02/22 04/01/23 Rx sacubitril 49 mg-valsartan 51 mg 1 tab PO BID #180 tabs 02/21/23 04/01/23 Rx tablet (Entresto) Inpatient Medication List Apixaban (Apixaban 5 Mg Tablet) 5 mg PO BID [facility] Stop: 05/01/23 08:59 Last Admin: 04/02/23 08:15 Dose: 5 mg Documented By: Admin: 04/01/23 20:05 Dose: 5 mg Documented By: Admin: 04/01/23 09:59 Dose: 5 mg Documented By: ANGIE Carvedilol (Carvedilol 25 Mg Tab) 25 mg PO BIDM [facility] Stop: 05/01/23 08:59 Last Admin: 04/02/23 09:30 Dose: 25 mg Documented By: Admin: 04/01/23 17:36 Dose: 25 mg Documented By: Admin: 04/01/23 09:59 Dose: 25 mg Documented By: BT Furosemide (Furosemide 20 Mg Tab) 20 mg PO DAILY [facility] Stop: 05/01/23 08:59 Last Admin: 04/02/23 08:15 Dose: 20 mg Documented By: Admin: 04/01/23 09:59 Dose: 20 mg Documented By: BT Ceftriaxone Sodium 2,000 mg/ (Dextrose) 70 mls @ 100 mls/hr IV Q24H [facility]; Protocol Stop: 04/06/23 14:59 Last Admin: 04/02/23 14:43 Dose: 100 mls/hr Documented By: Infusion: 04/01/23 16:31 Dose: 0 mls/hr Documented By: Admin: 04/01/23 15:25 Dose: 100 mls/hr Documented By: BT Sacubitril/Valsartan (Valsartan/Sacubitril 51/49 Mg Tab) 1 tab PO BID [facility] Stop: 05/01/23 08:59 Last Admin: 04/02/23 08:18 Dose: 1 tab Documented By: Admin: 04/01/23 20:05 Dose: 1 tab Documented By: Admin: 04/01/23 09:59 Dose: 1 tab Documented By: ANGIE Urea (Urea (Urea-Na) 15 Gm Pack) 15 gm PO Q6 [facility] Stop: 05/02/23 00:00 Last Admin: 04/02/23 11:19 Dose: 15 gm Documented By: Admin: 04/02/23 05:14 Dose: 15 gm Documented By: Admin: 04/02/23 00:39 Dose: 15 gm Documented By: JAMILA Discontinued Medications Ioversol (Optiray 320 500ml) 115 ml IV ONCE ONE Stop: 04/02/23 10:15 Last Admin: 04/02/23 10:15 Dose: 115 ml Documented By: BEBO Description This is a 21 electrode EEG with a single channel dedicated to limited EKG. The electrodes were placed in accordance with the International 10-20 system. Interpretation The predominant background activity consists of a fairly well modulated 8-9 Hz activity, of up to 60 mV in amplitude,seen symmetrically distributed over the posterior head regions bilaterally. This activity attenuates with eye-opening and other alerting procedures. Photic stimulation was performed and elicited no change in the background activity and no abnormal responses were seen. Hyperventilation was not performed. A moderate amount of muscle and movement artifact activity contaminated the recording, yet did not hinder interpretation to any significant degree. Throughout the waking portion of the recording, no focal abnormalities, abnormal slow activity, or potentially epileptogenic discharges are seen. The patient entered the drowsy state and brief periods of stage II sleep with no further activation. In summary, this EEG was normal during wakefulness and light sleep. No focal abnormalities, potentially epileptogenic discharges, or abnormal slow activity was seen. Clinical Correlation The abscence of potentially epileptogenic activity does not exclude a seizure disorder, since interictally, EEGs can be normal. Clinical correlation is required. [facility] Procedure Codes Indication for Procedure (1) Syncopal episodes: Neurology Neurology: [id number] EEG include record awake & sleepy
[2023-04-02] MEDS: SODIUM CHLORIDE 1 GM TABLET PO SCH (17:10)
--- NOTE | 2023-04-02 21:41 | Hospitalist Progress Note ---
Date of Service April 02, 2023 Assessment & Plan (1) Hyponatremia: Plan: acute on chronic chronic baseline Na level about 133/134 lowest Na level here 123 remains euvolemic hyponatremia perhaps multifactorial - solute deficient from restricted heart health diet, chronic lasix usage, possible SIADH, etc appreciate Dr Merino's consult and recs cont urea q6h NaCL supplementation added cont to fluid restrict serial BMPs (2) Syncopal episodes: Plan: x 2 on day of presentation etiology uncertain pacemaker interrogation - nothing on pacer interrogation that correlates with her episodes; no dysrhythmia seen orthostatic BPs negative CTA head/neck neg CT head neg unable to perform MRI brain unfortunately - pacer/ICD is incompatible echo - EF 40-45% nothing on echo to account for syncope etiology ?? 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: (5) Anticoagulant long-term use: Plan: Eliquis (6) CKD (chronic kidney disease), stage III: Plan: stage 3a CrCl at baseline 50s (7) Paroxysmal ventricular tachycardia: Plan: no recent VT events requiring shocks from ICD based on interrogation (8) Polyneuropathy: (9) Cardiomyopathy, nonischemic: Plan: EF 40-45% on echo this admission compensated on examination cont BB cont lasix cont Entresto (10) Biventricular ICD (implantable cardioverter-defibrillator) in place: Plan: as noted above (11) UTI (urinary tract infection): Plan: 2nd GNR cont rocephin follow cx narrow abx when able Plan DVT proph - eliquis updated pt's by phone last evening Admission and Anticipated Discharge Date Admission Date: April 01, 2023 Subjective no issues overnight she feels well anxious to go home eating fine no dyspnea no cough telemetry overnight wnl (pacing) no syncope by report she tends to ask the same questions as at previous visit Review of Systems Review of Systems: gen - feels well cv - no chest pain, no orthopnea pulm - no dyspnea at rest but admits to KENDR[facility] GI - no abd pain, nausea or emesis Physical Exam Physical Exam: gen - NAD, sitting in bed comfortably neck - no JVD mouth - MMM skin - normal turgor heart - RRR, s1 s2 lungs - CTA b/l abd - soft NT ND BS+ ext - no edema, pulses 2+ b/l psych - mild confusion Results & Data Results & Data Vital Signs (Past 12 Hours) Vital Signs Temp Pulse Pulse Resp BP Pulse Ox O2 Del Method 04/02/23 19:00 36.4 C L 76 22 105/58 L 94 Room Air 04/02/23 18:44 72 04/02/23 10:42 36.4 C L 60 18 136/78 93 Room Air Laboratory Results Laboratory Results - last 24 hr 04/02/23 04/02/23 04/02/23 06:32 06:32 12:03 WBC 7.90 RBC 3.69 L Hgb 11.4 L Hct 32.6 L MCV 88.3 MCH 30.9 MCHC 35.0 RDW Std Deviation 40.7 RDW Coeff of Morgan 12.6 Plt Count 196 MPV 9.3 L Immature Gran % (Auto) 0.4 Neut % (Auto) 71.9 Lymph % (Auto) 14.6 [place] % (Auto) 11.9 Eos % (Auto) 0.9 Baso % (Auto) 0.3 Neut # (Auto) 5.69 Lymph # (Auto) 1.15 L [place] # (Auto) 0.94 H Eos # (Auto) 0.07 Baso # (Auto) 0.02 Immature Gran # (Auto) 0.03 Sodium 126 L 125 L Potassium 4.2 Chloride 92 L Carbon Dioxide 28 Anion Gap 6 BUN 44 H D Creatinine 0.73 Est Cr Clr Drug Dosing 66.1 Est GFR ( Amer) 87.7 Est GFR (Non-Af Amer) 75.6 BUN/Creatinine Ratio 60.3 H Glucose 108 H Calcium 9.0 Magnesium 1.9 Total Bilirubin 0.6 AST 14 ALT 8 Alkaline Phosphatase 40 Total Protein 6.1 Albumin 3.7 Globulin 2.4 L Albumin/Globulin Ratio 1.5 Urine Osmolality 04/02/23 04/02/23 14:41 17:59 WBC RBC Hgb Hct MCV MCH MCHC RDW Std Deviation RDW Coeff of Morgan Plt Count MPV Immature Gran % (Auto) Neut % (Auto) Lymph % (Auto) [place] % (Auto) Eos % (Auto) Baso % (Auto) Neut # (Auto) Lymph # (Auto) [place] # (Auto) Eos # (Auto) Baso # (Auto) Immature Gran # (Auto) Sodium 125 L Potassium Chloride Carbon Dioxide Anion Gap BUN Creatinine Est Cr Clr Drug Dosing Est GFR ( Amer) Est GFR (Non-Af Amer) BUN/Creatinine Ratio Glucose Calcium Magnesium Total Bilirubin AST ALT Alkaline Phosphatase Total Protein Albumin Globulin Albumin/Globulin Ratio Urine Osmolality 361 L PG Care Time/CCT Total # of Minutes Spent Total Time Spent with Patient: Total time spent is greater than 50% in coordination of care (as documented) at patient's floor/unit and/or counseling patient: Coding Level of Care Code 47161 SUB INP/OBS CARE 2/35MIN Diagnoses Hyponatremia E87.1 Syncopal episodes R55 Paroxysmal atrial fibrillation I48.0 Ductal carcinoma in situ (DCIS) of left breast D05.12 Anticoagulant long-term use Z79.01 CKD (chronic kidney disease), stage III N18.30 Paroxysmal ventricular tachycardia I47.2 Polyneuropathy G62.9 Cardiomyopathy, nonischemic I42.8 Biventricular ICD (implantable cardioverter-defibrillator) in place Z95.810 UTI (urinary tract infection) N39.0
--- NOTE | 2023-04-02 23:02 | Electrocardiogram Report ---
Test Reason : Blood Pressure : / mmHG Vent. Rate : 078 BPM Atrial Rate : 078 BPM P-R Int : 160 ms QRS Dur : 128 ms QT Int : 460 ms P-R-T Axes : 096 138 -24 degrees QTc Int : 524 ms AV dual-paced rhythm with occasional Premature ventricular complexes Abnormal ECG When compared with ECG of 29-AUG-2020 12:48, Vent. rate has increased BY 7 BPM Confirmed by Bull Goldstein ([id number]) on 04/02/2023 11:02:06 PM Referred By: REFERRED SELF Confirmed By:Bull Goldstein
[2023-04-03] MEDS: UREA (UREA-NA) 15 GM PACK PO SCH ×2 (05:43→12:04)
[2023-04-03 07:25] LABS: Calcium 9.1 mg/dl (8.6-10.3); Potassium 3.8 mmol/L (3.5-5.1)
[2023-04-03 07:30] LABS: BUN Creatinine Ratio 64.9 (10-20); Creatinine Clr Calc Pharmacy 64.6 ml/min; Est GFR (African American) 86.2 ml/min; Est GFR (Non-African American) 74.4 ml/min
[2023-04-03] MEDS: APIXABAN 5 MG TABLET PO SCH ×2 (08:07→20:18)
[2023-04-03] MEDS: FUROSEMIDE 20 MG TAB PO SCH (08:09)
[2023-04-03] MEDS: VALSARTAN/SACUBITRIL 51/49 MG TAB PO SCH ×2 (08:10→20:18)
[2023-04-03] MEDS: carvediloL 25 MG TAB PO SCH ×2 (08:10→16:47)
[2023-04-03] MEDS: SODIUM CHLORIDE 1 GM TABLET PO SCH ×2 (08:10→16:46)
[2023-04-03] MEDS: cephALEXin 500 MG CAP PO SCH ×2 (09:44→20:18)
--- NOTE | 2023-04-03 12:14 | Nephrology Progress Note ---
Date of Service April 03, 2023 Assessment & Plan (1) Hyponatremia: Plan: Chronic. Moderate. Appears asymptomatic. Volume status acceptable. Clinical presentation suggests poor oral solute intake + underlying SIADH. No significant change in Uosm with urea therapy. Appears to be correcting with oral NaCl replacement. Will continue NaCl with free water restriction and repeat labs this afternoon. Document strict I/O's. Monitor thyroid function closely with low threshold for replacement of any clinical hypothyroidism. I discussed the plan of care with Dr. Tolentino this AM. (2) Syncopal episodes: Plan: Appreciated cardiology consultation. Etiology unclear. No orthostatic changes in vitals. No issues on tele. (3) Chronic systolic congestive heart failure: Plan: Volume status acceptable. Remains on goal directed therapy. Tolerating therapy well. Continue furosemide as Rx. Admission and Anticipated Discharge Date Admission Date: April 01, 2023 Subjective No acute events overnight. Reports feeling tired this AM. Appetite fair. No fluid retention or edema. Denies dyspnea. No lightheadedness, dizziness, syncope or presyncope. No chest pain or palpitations. No changes on monitor. Review of Systems Review of Systems: All systems reviewed & are unremarkable except as noted in HPI & below Physical Exam Constitutional: well developed and + obese; no acute distress Eyes: + anicteric sclerae; no corneal abnormality ENMT: Mouth: no oral mucosal abnormality and oral mucous membranes not dry Neck: normal visual inspection and trachea midline Respiratory: normal respiratory effort Auscultation: lungs clear to auscultation bilaterally Cardiovascular: Rate/Rhythm: regular rate Heart Sounds: normal S1 and normal S2 Extremities: no edema Musculoskeletal: Extremities: no cyanosis and no clubbing Skin: + turgor decreased; no jaundice Neurologic: Motor/Sensory: no tremor and no asterixis Psychiatric: Orientation: alert and oriented x 3 Results & Data Vital Signs (Past 12 Hours) Vital Signs Temp Pulse Pulse Resp BP Pulse Ox O2 Del Method 04/03/23 11:16 36.9 C 75 20 130/71 98 Room Air 04/03/23 08:00 78 04/03/23 08:00 Room Air 04/03/23 08:00 36.5 C 70 20 131/60 96 Room Air 04/03/23 03:00 36.6 C 68 20 124/70 93 Room Air Laboratory Results Laboratory Results - last 24 hr 04/02/23 04/02/2323 12:03 14:41 17:59 Sodium 125 L 125 L Potassium Chloride Carbon Dioxide Anion Gap BUN Creatinine Est Cr Clr Drug Dosing Est GFR ( Amer) Est GFR (Non-Af Amer) BUN/Creatinine Ratio Glucose Calcium Urine Osmolality 361 L 04/03/23 05:54 Sodium 127 L Potassium 3.8 Chloride 92 L Carbon Dioxide 28 Anion Gap 7 BUN 48 H Creatinine 0.74 Est Cr Clr Drug Dosing 64.6 Est GFR ( Amer) 86.2 Est GFR (Non-Af Amer) 74.4 BUN/Creatinine Ratio 64.9 H Glucose 92 Calcium 9.1 Urine Osmolality PG Care Time/CCT Total # of Minutes Spent Total Time Spent with Patient: Total time spent is greater than 50% in coordination of care (as documented) at patient's floor/unit and/or counseling patient: Coding Level of Care Code 20930 SUB INP/OBS CARE 3/50MIN Diagnoses Hyponatremia E87.1 Syncopal episodes R55 Chronic systolic congestive heart failure I50.22
[2023-04-03] MEDS ORDERED: SODIUM CHLORIDE 1 GM TABLET PO STA (12:15)
[2023-04-03] MEDS ORDERED: POTASSIUM CHLORIDE 10 MEQ TABCR PO STA (15:47)
--- NOTE | 2023-04-03 20:55 | Hospitalist Progress Note ---
Date of Service April 03, 2023 Assessment & Plan (1) Hyponatremia: Plan: acute on chronic chronic baseline Na level about 133/134 lowest Na level here 123 today she is 127 remains euvolemic on examination hyponatremia perhaps multifactorial - solute deficient, chronic lasix usage, possible SIADH, etc appreciate Dr Merino's consult and recs urea stopped NaCL supplementation increased to 2gm BID cont to fluid restrict serial BMPs (2) Syncopal episodes: Plan: x 2 on day of presentation states she was pale at the time of the event when EMS arrived to their home her initial BP per the EMS record was 114/61 HOWEVER - 2 subsequent BPs were low -- one was 78/53, and another was 94/59 she was given a saline bolus by EMS in response to these low BPs pacemaker interrogation - nothing on pacer interrogation that correlates with her episodes; no dysrhythmia seen unfortunately I cannot find orthostatic BPs from time of ER presentation CTA head/neck neg CT head neg unable to perform MRI brain unfortunately - pacer/ICD is incompatible EEG without seizure focus echo - EF 40-45% nothing on echo to account for syncope suspect orthostatic hypotension as the cause patient reported feeling dizzy the day of her event the pallor seen following the syncope, the low BPs, etc all are c/w orthostasis/low BP as the culpri she has copious varicose veins on examination may benefit from compression stockings she also mentioned today taking extra lasix recently so she may have had some element of volume depletion contributing or compounding the issue fortunately no near-syncope or syncope since admission 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: (5) Anticoagulant long-term use: Plan: Eliquis (6) CKD (chronic kidney disease), stage III: Plan: stage 3a CrCl at baseline 50s BMP am (7) Paroxysmal ventricular tachycardia: Plan: no recent VT events requiring shocks from ICD based on interrogation (8) Polyneuropathy: (9) Cardiomyopathy, nonischemic: Plan: EF 40-45% on echo this admission which is actually IMPROVED from prior echo compensated on examination cont BB cont lasix cont Entresto consider dose decrease in Entresto due to recurrent episodes of syncope which are likely hypotension/orthostatic related would need to d/w Dr Estrada about this (10) Biventricular ICD (implantable cardioverter-defibrillator) in place: Plan: as noted above (11) UTI (urinary tract infection): Plan: 2nd e.coli received 2 days of rocephin - stop such change to keflex 500mg BID x 5 additional days may have contributed to syncopal event at home if she was getting sick (12) Cognitive impairment: Plan: patient seems to have some element of cognitive impairment each day she cannot remember conversations from prior, asks the same questions, has little insight into her health problems, etc early dementia vs cognitive impairment?? b12 level earlier this year was about 180 - this is low for senior - start IM replacement 1000mcg daily w check a B1 level send to neurology after d/c for thorough neuropsych eval Plan DVT proph - eliquis updated pt's at bedside today requested PT/OT evals extensive chart review undertaken today complex care coordination Admission and Anticipated Discharge Date Admission Date: April 01, 2023 Subjective tele overnight wnl only complaint is that of fatigue/feeling tired eating well like previous visits she asks the same questions as prior and has little insight into her medical conditions denies any new complaints is at bedside Review of Systems Review of Systems: cv - no cp, no orthopnea pulm - no c/o dyspnea today GI - no abd pain or N/V Physical Exam Physical Exam: gen - NAD, sitting in bed comfortably neck - no JVD mouth - MMM skin - normal turgor heart - RRR, s1 s2, 1/6 systolic murmur RUSB lungs - CTA b/l except scant rales bases abd - soft NT ND BS+ ext - no edema, pulses 2+ b/l; copious varicose veins b/l LEs psych - mild confusion again noted Results & Data Results & Data Vital Signs (Past 12 Hours) Vital Signs Temp Pulse Pulse Resp BP Pulse Ox O2 Del Method 04/03/23 20:44 Room Air 04/03/23 19:00 36.5 C 69 21 132/77 93 Room Air 04/03/23 16:09 36.8 C 69 18 125/75 95 Room Air 04/03/23 15:00 75 04/03/23 11:16 36.9 C 75 20 130/71 98 Room Air Laboratory Results Laboratory Results - last 24 hr 04/03/23 04/03/23 05:54 13:02 Sodium 127 L 127 L Potassium 3.8 Chloride 92 L Carbon Dioxide 28 Anion Gap 7 BUN 48 H Creatinine 0.74 Est Cr Clr Drug Dosing 64.6 Est GFR ( Amer) 86.2 Est GFR (Non-Af Amer) 74.4 BUN/Creatinine Ratio 64.9 H Glucose 92 Calcium 9.1 PG Care Time/CCT Total # of Minutes Spent Total Time Spent with Patient: Total time spent is greater than 50% in coordination of care (as documented) at patient's floor/unit and/or counseling patient: Coding Level of Care Code 16106 SUB INP/OBS CARE 3/50MIN Diagnoses Hyponatremia E87.1 Syncopal episodes R55 Paroxysmal atrial fibrillation I48.0 Ductal carcinoma in situ (DCIS) of left breast D05.12 Anticoagulant long-term use Z79.01 CKD (chronic kidney disease), stage III N18.30 Paroxysmal ventricular tachycardia I47.2 Polyneuropathy G62.9 Cardiomyopathy, nonischemic I42.8 Biventricular ICD (implantable cardioverter-defibrillator) in place Z95.810 UTI (urinary tract infection) N39.0 Cognitive impairment R41.89
--- NOTE | 2023-04-04 05:26 | Electrocardiogram Report ---
Test Reason : Blood Pressure : / mmHG Vent. Rate : 075 BPM Atrial Rate : 075 BPM P-R Int : 142 ms QRS Dur : 154 ms QT Int : 478 ms P-R-T Axes : 101 151 063 degrees QTc Int : 533 ms AV dual-paced rhythm Abnormal ECG When compared with ECG of 01-APR-2023 02:17, Premature ventricular complexes are no longer Present Vent. rate has decreased BY 3 BPM Confirmed by Bull Goldstein ([id number]) on 04/04/2023 5:25:45 AM Referred By: REFERRED SELF Confirmed By:Bull Goldstein
[2023-04-04 08:03] LABS: BUN Creatinine Ratio 46.2 (10-20); Calcium 8.7 mg/dl (8.6-10.3); Creatinine Clr Calc Pharmacy 73.6 ml/min; Est GFR (African American) 94.5 ml/min; Est GFR (Non-African American) 81.5 ml/min; Potassium 3.9 mmol/L (3.5-5.1)
[2023-04-04] MEDS: cephALEXin 500 MG CAP PO SCH ×2 (08:08→19:46)
[2023-04-04] MEDS: VALSARTAN/SACUBITRIL 51/49 MG TAB PO SCH ×2 (08:08→19:47)
[2023-04-04] MEDS: APIXABAN 5 MG TABLET PO SCH ×2 (08:08→19:47)
[2023-04-04] MEDS: carvediloL 25 MG TAB PO SCH ×2 (08:09→17:10)
[2023-04-04] MEDS: SODIUM CHLORIDE 1 GM TABLET PO SCH ×2 (08:10→17:10)
[2023-04-04] MEDS: FUROSEMIDE 20 MG TAB PO SCH (08:10)
[2023-04-04] MEDS: CYANOCOBALAMIN 1000 MCG/ML VIAL IM SCH (08:18)
[2023-04-04] MEDS ORDERED: POTASSIUM CHLORIDE 10 MEQ TABCR PO STA (09:01)
--- NOTE | 2023-04-04 10:05 | Nephrology Progress Note ---
Date of Service April 04, 2023 Assessment & Plan (1) Hyponatremia: Plan: Chronic. Moderate. Appears asymptomatic. Volume status euvolemic. Clinical presentation suggests poor oral solute intake + underlying SIADH. Urea therapy was stopped. There was no significant improvement in Uosm or sodium with Q6 hour dosing and patient did not tolerate well. Now correcting with oral NaCl replacement and tolerating well. Will continue NaCl with free water restriction. Document strict I/O's. Monitor thyroid function closely with low threshold for replacement of any clinical hypothyroidism. (2) Syncopal episodes: Plan: No recurrent symptoms noted. Normotensive. No orthostatic changes in vitals. Remains on tele monitor with no events noted. (3) Chronic systolic congestive heart failure: Plan: Volume status acceptable. Remains on goal directed therapy. Tolerating therapy well. Continue furosemide 20 mg daily. Remains on Entresto and carvedilol. BP acceptable. Admission and Anticipated Discharge Date Admission Date: April 01, 2023 Subjective No acute events overnight. No complaints this AM. Sleeping comfortably in bed. Appetite remains fair. No fluid retention or edema. Denies pain or shortness of breath. Remains weak. No lightheadedness, dizziness, syncope, or presyncope. No chest pains or palpitations. I discussed the plan of care with Dr. Tolentino this AM. Review of Systems Review of Systems: All systems reviewed & are unremarkable except as noted in HPI & below Physical Exam Constitutional: well developed and + obese; no acute distress Eyes: + anicteric sclerae; no corneal abnormality ENMT: Mouth: no oral mucosal abnormality and oral mucous membranes not dry Neck: normal visual inspection and trachea midline Respiratory: normal respiratory effort Auscultation: lungs clear to auscultation bilaterally Cardiovascular: Rate/Rhythm: regular rate Heart Sounds: normal S1 and normal S2 Extremities: no edema Musculoskeletal: Extremities: no cyanosis and no clubbing Skin: + turgor decreased; no jaundice Neurologic: Motor/Sensory: no tremor and no asterixis Psychiatric: Orientation: alert and oriented x 3 Results & Data Vital Signs (Past 12 Hours) Vital Signs Temp Pulse Pulse Resp BP Pulse Ox O2 Del Method 04/04/23 07:36 36.3 C L 70 20 144/85 H 93 Room Air 04/04/23 07:10 84 04/04/23 03:00 36.8 C 76 22 120/71 90 Room Air 04/03/23 23:00 36.9 C 21 127/74 94 Room Air Laboratory Results Laboratory Results - last 24 hr 04/03/23 04/04/23 04/04/23 13:02 07:11 07:11 Sodium 127 L 129 L Potassium 3.9 Chloride 95 L Carbon Dioxide 27 Anion Gap 7 BUN 30 H Creatinine 0.65 Est Cr Clr Drug Dosing 73.6 Est GFR ( Amer) 94.5 Est GFR (Non-Af Amer) 81.5 BUN/Creatinine Ratio 46.2 H Glucose 95 Calcium 8.7 Vitamin B1 Folate 9.71 04/04/23 07:11 Sodium Potassium Chloride Carbon Dioxide Anion Gap BUN Creatinine Est Cr Clr Drug Dosing Est GFR ( Amer) Est GFR (Non-Af Amer) BUN/Creatinine Ratio Glucose Calcium Vitamin B1 Pending Folate PG Care Time/CCT Total # of Minutes Spent Total Time Spent with Patient: Total time spent is greater than 50% in coordination of care (as documented) at patient's floor/unit and/or counseling patient: Coding Level of Care Code 38131 SUB INP/OBS CARE 3/50MIN Diagnoses Hyponatremia E87.1 Syncopal episodes R55 Chronic systolic congestive heart failure I50.22
[2023-04-04] MEDS: THIAMINE HCL 100 MG TAB PO SCH ×2 (12:44→19:46)
[2023-04-04] MEDS: UREA (UREA-NA) 15 GM PACK PO SCH ×2 (19:46→19:55)
--- NOTE | 2023-04-04 20:53 | Hospitalist Progress Note ---
Date of Service April 04, 2023 Assessment & Plan (1) Hyponatremia: Plan: acute on chronic chronic baseline Na level about 133/134 lowest Na level here 123 today she is 129 -- improving steadily remains euvolemic on examination hyponatremia perhaps multifactorial - solute deficient, chronic lasix usage, possible SIADH, etc appreciate Dr Merino's consult and recs due to persistent nausea/emesis with salt tablets will d/c NaCl and change back to urea-Na - 15gm q6h recheck BMP am (2) Syncopal episodes: Plan: x 2 on day of presentation states she was pale at the time of the event when EMS arrived to their home her initial BP per the EMS record was 114/61 HOWEVER - 2 subsequent BPs were low -- one was 78/53, and another was 94/59 she was given a saline bolus by EMS in response to these low BPs pacemaker interrogation - nothing on pacer interrogation that correlates with her episodes; no dysrhythmia seen unfortunately I cannot find orthostatic BPs from time of ER presentation but her orthostatics x 2 after admission - including today - have been wnl CTA head/neck neg CT head neg unable to perform MRI brain unfortunately - pacer/ICD is incompatible EEG without seizure focus echo - EF 40-45% nothing on echo to account for syncope suspect orthostatic hypotension as the cause patient reported feeling dizzy the day of her event the pallor seen following the syncope, the low BPs, etc all are c/w orthostasis/low BP as the culprit she has copious varicose veins on examination may benefit from compression stockings she also mentioned taking extra lasix recently so she may have had some element of volume depletion contributing or compounding the issue fortunately no near-syncope or syncope since admission discussed the EMS report today with 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: (5) Anticoagulant long-term use: Plan: Eliquis (6) CKD (chronic kidney disease), stage III: Plan: stage 3a CrCl at baseline 50s stable BMP am (7) Paroxysmal ventricular tachycardia: Plan: no recent VT events requiring shocks from ICD based on interrogation (8) Polyneuropathy: (9) Cardiomyopathy, nonischemic: Plan: EF 40-45% on echo this admission which is actually IMPROVED from prior echo compensated on examination cont BB cont lasix cont Entresto I spoke with Dr Estrada about her low BPs as the cause of her syncope if she has recurrent low BP or orthostasis he prefers we lower her coreg dose (10) Biventricular ICD (implantable cardioverter-defibrillator) in place: Plan: as noted above (11) UTI (urinary tract infection): Plan: 2nd e.coli received 2 days of rocephin then changed to keflex 500mg BID x 5 additional days may have contributed to syncopal event at home if she was getting sick (12) Cognitive impairment: Plan: patient seems to have some element of cognitive impairment each day she cannot remember conversations from prior, asks the same questions, has little insight into her health problems, etc early dementia vs cognitive impairment?? b12 level earlier this year was about 180 - this is low for senior - start IM replacement 1000mcg daily w checked B1 level - place on supplementation while awaiting the level send to neurology after d/c for thorough neuropsych eval (13) B12 deficiency: Plan: recent B12 level was 182 this is a deficient level for an 82yo female in light of #12 start parenteral B12 x 5 days then PO B12 at discharge Plan DVT proph - eliquis updated pt's at bedside today PT/OT evals care d/w Dr Merino Admission and Anticipated Discharge Date Admission Date: April 01, 2023 Subjective tele stable overnight sitting in bed comfortably during the visit was at bedside no new complaints except is having nausea/emesis with the salt tabs at times she otherwise is eating well took walk with nursing - o2 sats in room air were mid 90s orthostatics also checked -- negative she continues with mild dyspnea on exertion (chronic) Review of Systems Review of Systems: cv - no chest pain, no orthopnea pulm - occasional cough - chronic; KENDRICK - chronic GI - nausea/emesis from salt tabs gen - no fevers Physical Exam Physical Exam: gen - NAD, sitting in bed comfortably neck - no JVD mouth - MMM skin - normal turgor heart - RRR, s1 s2, 1/6 systolic murmur RUSB lungs - CTA b/l abd - soft NT ND BS+ ext - no edema, pulses 2+ b/l; copious varicose veins b/l LEs without signs of thrombophlebitis, etc psych - mild, baseline, stable confusion Results & Data Results & Data Vital Signs (Past 12 Hours) Vital Signs Temp Pulse Pulse Resp BP Pulse Ox O2 Del Method 04/04/23 19:40 36.8 C 70 18 122/79 92 Room Air 04/04/23 16:00 36.5 C 20 Room Air 04/04/23 15:09 70 04/04/23 11:12 36.3 C L 72 20 131/81 93 Room Air Laboratory Results Laboratory Results - last 24 hr 04/04/23 04/04/23 04/04/23 07:11 07:11 07:11 Sodium 129 L Potassium 3.9 Chloride 95 L Carbon Dioxide 27 Anion Gap 7 BUN 30 H Creatinine 0.65 Est Cr Clr Drug Dosing 73.6 Est GFR ( Amer) 94.5 Est GFR (Non-Af Amer) 81.5 BUN/Creatinine Ratio 46.2 H Glucose 95 Calcium 8.7 Vitamin B1 Pending Folate 9.71 PG Care Time/CCT Total # of Minutes Spent Total Time Spent with Patient: Total time spent is greater than 50% in coordination of care (as documented) at patient's floor/unit and/or counseling patient: Coding Level of Care Code 60305 SUB INP/OBS CARE 2/35MIN Diagnoses Hyponatremia E87.1 Syncopal episodes R55 Paroxysmal atrial fibrillation I48.0 Ductal carcinoma in situ (DCIS) of left breast D05.12 Anticoagulant long-term use Z79.01 CKD (chronic kidney disease), stage III N18.30 Paroxysmal ventricular tachycardia I47.2 Polyneuropathy G62.9 Cardiomyopathy, nonischemic I42.8 Biventricular ICD (implantable cardioverter-defibrillator) in place Z95.810 UTI (urinary tract infection) N39.0 Cognitive impairment R41.89 B12 deficiency E53.8
[2023-04-05] MEDS: UREA (UREA-NA) 15 GM PACK PO SCH ×2 (00:06→05:57)
--- NOTE | 2023-04-05 06:40 | Electrocardiogram Report ---
Test Reason : Blood Pressure : / mmHG Vent. Rate : 077 BPM Atrial Rate : 077 BPM P-R Int : 140 ms QRS Dur : 156 ms QT Int : 466 ms P-R-T Axes : 091 158 -03 degrees QTc Int : 527 ms AV dual-paced rhythm Abnormal ECG When compared with ECG of 02-APR-2023 05:13, Vent. rate has increased BY 2 BPM Confirmed by Bull Goldstein ([id number] on 04/05/2023 6:40:31 AM Referred By: REFERRED SELF Confirmed By:Bull Goldstein
[2023-04-05 07:43] LABS: BUN Creatinine Ratio 31.1 (10-20); Calcium 8.7 mg/dl (8.6-10.3); Creatinine Clr Calc Pharmacy 78.2 ml/min; Est GFR (African American) 96.5 ml/min; Est GFR (Non-African American) 83.2 ml/min; Potassium 3.7 mmol/L (3.5-5.1)
[2023-04-05] MEDS: cephALEXin 500 MG CAP PO SCH ×2 (08:08→20:08)
[2023-04-05] MEDS: THIAMINE HCL 100 MG TAB PO SCH ×2 (08:08→20:08)
[2023-04-05] MEDS: APIXABAN 5 MG TABLET PO SCH ×2 (08:08→20:07)
[2023-04-05] MEDS: VALSARTAN/SACUBITRIL 51/49 MG TAB PO SCH ×2 (08:08→20:07)
[2023-04-05] MEDS: FUROSEMIDE 20 MG TAB PO SCH (08:09)
[2023-04-05] MEDS: carvediloL 25 MG TAB PO SCH ×2 (08:09→16:40)
[2023-04-05] MEDS: CYANOCOBALAMIN 1000 MCG/ML VIAL IM SCH ×2 (08:09→20:08)
--- NOTE | 2023-04-05 08:30 | Nephrology Progress Note ---
Date of Service April 05, 2023 Assessment & Plan (1) Hyponatremia: Plan: * Improved to 130 mmol/L this am * Patient has h/o chronic, asymptomatic hyponatremia w/ baseline serum sodium 126-129 mmol/L * Worsening hyponatremia this hospitalization due to poor solute intake + underlying SIADH * Intolerant of urea therapy due to GI upset * Continue NaCl 1g po BID, Furosemide 20 mg po daily, 1200 cc/day oral fluid restriction * If discharge is anticipated, please have patient follow up w/ Dr. Merino in 7-14 days ([phone]) (2) Syncopal episodes: Plan: * Resolved. No further episodes reported (3) Chronic systolic congestive heart failure: Plan: * Volume status acceptable. Continue furosemide 20 mg [place]. * Remains on Entresto and carvedilol. BP acceptable. Admission and Anticipated Discharge Date Admission Date: April 01, 2023 Subjective Mrs. Carrillo was evaluated in her hospital room this morning. She refused urea therapy yesterday and today due to GI upset. She notes that she tolerates salt tablets without side effect. Mrs. Carrillo c/o fatigue but voiced no other medical concerns. Review of Systems Constitutional: no fever Eyes: no worsening vision Ear, Nose, Mouth, Throat: no problem reported Respiratory: no cough and no dyspnea Cardiovascular: no chest pain and no edema Gastrointestinal: no abdominal pain, no nausea, no vomiting and no diarrhea/lo ose stools Genitourinary: no dysuria Physical Exam Constitutional: WD/WN, vitals as above Eyes: PERRL, conjunctivae normal, anicteric sclerae ENMT: external ear and nose normal, oropharynx normal Neck: trachea midline, no thyromegaly Respiratory: normal respiratory effort, lungs clear to auscultation Cardiovascular: RRR, no murmur, no edema Gastrointestinal (Abdomen): normal bowel sounds, soft, nontender, no hepatosplenomegaly Skin: no rashes, warm and dry Neurologic: not confused Speech / Cognition: normal speech Results & Data Vital Signs (Past 12 Hours) Vital Signs Temp Pulse Pulse Resp BP Pulse Ox O2 Del Method 04/05/23 07:27 36.7 C 74 18 128/79 93 Room Air 04/05/23 07:23 74 04/05/23 03:33 36.7 C 74 16 149/69 H 94 Room Air 04/04/23 23:09 76 04/04/23 23:05 36.7 C 69 18 127/76 93 Room Air Laboratory Results Laboratory Tests 04/05/23 06:40 Sodium 130 L Potassium 3.7 Chloride 98 Carbon Dioxide 26 BUN 19 Creatinine 0.61 Glucose 90 Calcium 8.7 PG Care Time/CCT Total # of Minutes Spent Total Time Spent with Patient: Total time spent is greater than 50% in coordination of care (as documented) at patient's floor/unit and/or counseling patient: Coding Level of Care Code 33615 SUB INP/OBS CARE 3/50MIN Diagnoses Hyponatremia E87.1 Syncopal episodes R55 Chronic systolic congestive heart failure I50.22
[2023-04-05] MEDS: SODIUM CHLORIDE 1 GM TABLET PO SCH ×2 (09:53→20:08)
--- NOTE | 2023-04-05 20:00 | Hospitalist Progress Note ---
Date of Service April 05, 2023 Assessment & Plan (1) Hyponatremia: Plan: acute on chronic chronic baseline Na level about 133/134 lowest Na level here 123 today she was 130 this am but this afternoon 128 remains euvolemic on examination hyponatremia perhaps multifactorial - solute deficient, chronic lasix usage, possible SIADH, etc appreciate Dr Merino's consult and recs urea-Na was d/c by nephrology this am; changed back to NaCl 1gm BID cont lasix cont fluid restriction if Na level is 130 or higher in am will d/c home (2) Syncopal episodes: Plan: x 2 on day of presentation states she was pale at the time of the event when EMS arrived to their home her initial BP per the EMS record was 114/61 HOWEVER - 2 subsequent BPs were low -- one was 78/53, and another was 94/59 she was given a saline bolus by EMS in response to these low BPs pacemaker interrogation - nothing on pacer interrogation that correlates with her episodes; no dysrhythmia seen unfortunately I cannot find orthostatic BPs from time of ER presentation but her orthostatics x 2 after admission - including today - have been wnl CTA head/neck neg CT head neg unable to perform MRI brain unfortunately - pacer/ICD is incompatible EEG without seizure focus echo - EF 40-45% nothing on echo to account for syncope suspect orthostatic hypotension as the cause patient reported feeling dizzy the day of her event the pallor seen following the syncope, the low BPs, etc all are c/w orthostasis/low BP as the culprit she has copious varicose veins on examination may benefit from compression stockings she also mentioned taking extra lasix recently so she may have had some element of volume depletion contributing or compounding the issue fortunately no near-syncope or syncope since admission (3) Paroxysmal atrial fibrillation: Plan: nothing seen on pacer interrogation to account for #2 no PAF on tele while hospitalized cont BB cont Eliquis BID (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: (5) Anticoagulant long-term use: Plan: Eliquis (6) CKD (chronic kidney disease), stage III: Plan: stage 3a CrCl at baseline 50s stable BMP am (7) Paroxysmal ventricular tachycardia: Plan: no recent VT events requiring shocks from ICD based on interrogation no VT on tele (8) Polyneuropathy: (9) Cardiomyopathy, nonischemic: Plan: EF 40-45% on echo this admission which is actually IMPROVED from prior echo compensated on examination cont BB cont lasix cont Entresto I spoke with Dr Estrada about her low BPs as the cause of her syncope if she has recurrent low BP or orthostasis he prefers we lower her coreg dose orthostatics checked yesterday and were negative (10) Biventricular ICD (implantable cardioverter-defibrillator) in place: Plan: as noted above (11) UTI (urinary tract infection): Plan: 2nd e.coli received 2 days of rocephin then changed to keflex 500mg BID x 5 additional days ; to day is day #3 of 5 may have contributed to syncopal event at home if she was getting sick (12) Cognitive impairment: Plan: patient seems to have some element of cognitive impairment each day she cannot remember conversations from prior, asks the same questions, has little insight into her health problems, etc early dementia vs cognitive impairment?? b12 level earlier this year was about 180 - this is low for senior - start IM replacement 1000mcg daily while here, then switch to 1000mcg daily by mouth checked B1 level - place on supplementation while awaiting the level send to neurology after d/c for thorough neuropsych eval (13) B12 deficiency: Plan: recent B12 level was 182 this is a deficient level for an 82yo female in light of #12 start parenteral B12 x 5 days then PO B12 at discharge Plan DVT proph - eliquis updated pt's by phone this evening PT/OT antwon appreciated hopefully home tomorrow Admission and Anticipated Discharge Date Admission Date: April 01, 2023 Subjective unfortunately the patient had 2 episodes of emesis yesterday with her NaCl tablets it is uncertain if she actually kept any of the meds down she was changed to urea-Na and, unfortunately, she refused all doses of this thus, she got little sodium supplementation- if any- yesterday she was placed back on NaCL tabs by nephrology -- she DID hold down the NaCL this am pt without any new complaints anxious to get home tele overnight wnl Review of Systems Review of Systems: cv - no chest pain, no edema pulm - mild KENDRICK but nothing at rest GI - nausea/emesis with NaCL tabs yesterday; no abd pain; able to eat ok today Physical Exam Physical Exam: gen - NAD, sitting in chair comfortably neck - no JVD mouth - MMM heart - RRR, s1 s2, 1/6 systolic murmur RUSB lungs - CTA b/l -- no rales abd - soft NT ND BS+ ext - no edema, pulses 2+ b/l; copious varicose veins b/l LEs without signs of thrombophlebitis, etc psych - mild, baseline, stable confusion - asks same questions as yesterday Results & Data Results & Data Vital Signs (Past 12 Hours) Vital Signs Temp Pulse Pulse Resp BP Pulse Ox O2 Del Method 04/05/23 19:49 36.3 C L 69 20 119/78 94 Room Air 04/05/23 16:00 36.6 C 74 20 137/84 93 Room Air 04/05/23 15:14 73 04/05/23 11:32 36.3 C L 69 16 117/70 92 Room Air Laboratory Results Laboratory Results - last 24 hr 04/05/23 04/05/23 06:40 12:40 Sodium 130 L 128 L Potassium 3.7 Chloride 98 Carbon Dioxide 26 Anion Gap 6 BUN 19 Creatinine 0.61 Est Cr Clr Drug Dosing 78.2 Est GFR ( Amer) 96.5 Est GFR (Non-Af Amer) 83.2 BUN/Creatinine Ratio 31.1 H Glucose 90 Calcium 8.7 PG Care Time/CCT Total # of Minutes Spent Total Time Spent with Patient: Total time spent is greater than 50% in coordination of care (as documented) at patient's floor/unit and/or counseling patient: Coding Level of Care Code 50710 SUB INP/OBS CARE 2/35MIN Diagnoses Hyponatremia E87.1 Syncopal episodes R55 Paroxysmal atrial fibrillation I48.0 Ductal carcinoma in situ (DCIS) of left breast D05.12 Anticoagulant long-term use Z79.01 CKD (chronic kidney disease), stage III N18.30 Paroxysmal ventricular tachycardia I47.2 Polyneuropathy G62.9 Cardiomyopathy, nonischemic I42.8 Biventricular ICD (implantable cardioverter-defibrillator) in place Z95.810 UTI (urinary tract infection) N39.0 Cognitive impairment R41.89 B12 deficiency E53.8
--- NOTE | 2023-04-06 08:15 | Nephrology Progress Note ---
Date of Service April 06, 2023 Assessment & Plan (1) Hyponatremia: Plan: * Improved to 132 mmol/L this am * Patient has h/o chronic, asymptomatic hyponatremia w/ baseline serum sodium 126-129 mmol/L * Worsening hyponatremia this hospitalization due to poor solute intake + underlying SIADH * Intolerant of urea therapy due to GI upset * Continue NaCl 1g po BID, Furosemide 20 mg po daily, 1200 cc/day oral fluid restriction * If discharge is anticipated, please have patient follow up w/ Dr. Merino in 7-14 days ([phone]) (2) Syncopal episodes: Plan: * Resolved. No further episodes reported (3) Chronic systolic congestive heart failure: Plan: * Volume status acceptable. Continue furosemide 20 mg daily * Remains on Entresto and carvedilol. BP acceptable Admission and Anticipated Discharge Date Admission Date: April 01, 2023 Subjective Mrs. Carrillo was evaluated in her hospital room this morning. She tolerated salt tablets without side effect. She reports improved stamina and is anxious to return home. Review of Systems Constitutional: no fever Eyes: no worsening vision Ear, Nose, Mouth, Throat: no problem reported Respiratory: no cough and no dyspnea Cardiovascular: no chest pain and no edema Gastrointestinal: no abdominal pain, no nausea, no vomiting and no diarrhea/loose stools Genitourinary: no dysuria Physical Exam Constitutional: WD/WN, vitals as above Eyes: PERRL, conjunctivae normal, anicteric sclerae ENMT: external ear and nose normal, oropharynx normal Neck: trachea midline, no thyromegaly Respiratory: normal respiratory effort, lungs clear to auscultation Cardiovascular: RRR, no murmur, no edema Gastrointestinal (Abdomen): normal bowel sounds, soft, nontender, no hepatosplenomegaly Skin: no rashes, warm and dry Neurologic: not confused Speech / Cognition: normal speech Results & Data Vital Signs (Past 12 Hours) Vital Signs Temp Pulse Resp BP Pulse Ox O2 Del Method 04/06/23 08:04 83 18 143/82 H 90 Room Air 04/06/23 03:23 36.3 C L 77 20 139/77 92 Room Air 04/05/23 23:30 36.6 C 71 20 132/79 95 Room Air Laboratory Results Laboratory Tests 04/06/23 07:13 Sodium 132 L Potassium 4.2 Chloride 98 Carbon Dioxide 26 BUN 17 Creatinine 0.68 Glucose 99 PG Care Time/CCT Total # of Minutes Spent Total Time Spent with Patient: Total time spent is greater than 50% in coordination of care (as documented) at patient's floor/unit and/or counseling patient: Coding Level of Care Code 69472 SUB INP/OBS CARE 3/50MIN Diagnoses Hyponatremia E87.1 Syncopal episodes R55 Chronic systolic congestive heart failure I50.22
[2023-04-06 08:21] LABS: Calcium 8.7 mg/dl (8.6-10.3); Creatinine Clr Calc Pharmacy 70.2 ml/min; Est GFR (African American) 93.1 ml/min; Est GFR (Non-African American) 80.3 ml/min; Potassium 4.2 mmol/L (3.5-5.1)
[2023-04-06] MEDS: THIAMINE HCL 100 MG TAB PO SCH (09:42)
[2023-04-06] MEDS: APIXABAN 5 MG TABLET PO SCH (09:42)
[2023-04-06] MEDS: VALSARTAN/SACUBITRIL 51/49 MG TAB PO SCH (09:42)
[2023-04-06] MEDS: FUROSEMIDE 20 MG TAB PO SCH (09:42)
[2023-04-06] MEDS: cephALEXin 500 MG CAP PO SCH (09:43)
[2023-04-06] MEDS: SODIUM CHLORIDE 1 GM TABLET PO SCH (09:43)
[2023-04-06] MEDS: CYANOCOBALAMIN 1000 MCG/ML VIAL IM SCH (09:44)
[2023-04-06] MEDS: carvediloL 25 MG TAB PO SCH (10:31)
--- NOTE | 2023-04-06 11:54 | XRay Report ---
XR chest 2V PA/lateral CLINICAL HISTORY: cough, RLL rales/wheeze TECHNIQUE: 2 views of the chest were obtained. Comparison: Comparison is made to chest radiograph 04/01/2023 FINDINGS: Pacemaker defibrillator is seen. Cardiomegaly is noted. The aortic arch is calcified. The lungs are c lear. No evidence of pleural effusion or pneumothorax. IMPRESSION: No acute abnormalities and in particular no radiographic evidence of pneumonia. ACT 112: Negative or not required by law. Electronically signed by: Nathan Dupree M.D. 04/06/2023 11:52 AM
[2023-04-06] MEDS ORDERED: IPRATROPIUM BROMIDE/ALBUTEROL respimat INH INH STA (12:08)
[2023-04-06] MEDS ORDERED: IPRATROPIUM BROMIDE HFA INHALER INH STA (12:57)
[2023-04-06] MEDS ORDERED: ALBUTEROL HFA INHALER 8.5 GM INH STA (12:57)
--- NOTE | 2023-04-06 13:53 | Discharge Summary ---
Date of Service April 06, 2023 Admission HPI Per Admitting Provider The patient is an 82-year-old female with past medical history including paroxysmal atrial fibrillation, ductal carcinoma in situ of left breast, long- term anticoagulant use, chronic HFrEF, CKD stage III, paroxysmal ventricular tachycardia, left bundle branch block, fibromyalgia, nonischemic cardiomyopathy, biventricular ICD and hypertension. The patient had her first episode of syncope after she called out to her that she was feeling faint, and he gently lowered her back to the ground. Second episode occurred minutes later, when the son was there also, and after 20 minutes of no significant activity, E was called, and the patient was brought to the ED for assessment. In the ED, the patient's reports that this has been the fourth episode that occurred this year. The patient reports intermittent palpitations times month, and paroxysmal cough for years. Discharge Exam gen - NAD, sitting in chair comfortably neck - no JVD mouth - MMM heart - RRR, s1 s2, 1/6 systolic murmur RUSB lungs - CTA b/l -- no rales abd - soft NT ND BS+ ext - no edema, pulses 2+ b/l; copious varicose veins b/l LEs without signs of thrombophlebitis, etc psych - mild, baseline, stable confusion - asks same questions as yesterday Discharge Data Allergies Allergy/AdvReac Type Severity Reaction Status Date / Time duloxetine [From Cymbalta] Allergy Unknown Unknown Verified 04/01/23 02:40 Egg Derived Allergy Unknown Unknown Verified 04/01/23 02:40 ciprofloxacin AdvReac Severe Elaine Verified 04/01/23 02:40 Muscle aches and weakness NSAIDS (Non-Steroidal AdvReac Severe RECTAL Verified 04/01/23 02:40 Anti-Inflamma BLEEDING epinephrine AdvReac Intermediate NERVOUS;INCREASED Verified 04/01/23 02:40 HR meperidine AdvReac Intermediate VOMITING Verified 04/01/23 02:40 nitrofurantoin AdvReac Intermediate upset Verified 04/01/23 02:40 [From Macrobid] stomach Consultations 04/01/23 04:51 ED Decision to Admit Stat 04/01/23 09:00 Consult Cardiology Routine 04/01/23 15:34 Consult Nephrology Routine Ordered Studies 04/02/23 08:22 CTA head w con [CT angio head w con] Routine CTA neck with con [CT angio neck with con] Routine 04/02/23 08:23 CT head/brain wo con Routine Hospital Course (1) Hyponatremia: acute on chronic chronic baseline Na level about 133/134 lowest Na level here 123 today she was 130 this am but this afternoon 128 remains euvolemic on examination hyponatremia perhaps multifactorial - solute deficient, chronic lasix usage, possible SIADH, etc appreciate Dr Merion's consult and recs urea-Na was d/c by nephrology this am; changed back to NaCl 1gm BID cont lasix cont fluid restriction if Na level is 130 or higher in am will d/c home (2) Syncopal episodes: x 2 on day of presentation states she was pale at the time of the event when EMS arrived to their home her initial BP per the EMS record was 114/61 HOWEVER - 2 subsequent BPs were low -- one was 78/53, and another was 94/59 she was given a saline bolus by EMS in response to these low BPs pacemaker interrogation - nothing on pacer interrogation that correlates with her episodes; no dysrhythmia seen unfortunately I cannot find orthostatic BPs from time of ER presentation but her orthostatics x 2 after admission - including today - have been wnl CTA head/neck neg CT head neg unable to perform MRI brain unfortunately - pacer/ICD is incompatible EEG without seizure focus echo - EF 40-45% nothing on echo to account for syncope suspect orthostatic hypotension as the cause patient reported feeling dizzy the day of her event the pallor seen following the syncope, the low BPs, etc all are c/w orthost asis/low BP as the culprit she has copious varicose veins on examination may benefit from compression stockings she also mentioned taking extra lasix recently so she may have had some element of volume depletion contributing or compounding the issue fortunately no near-syncope or syncope since admission (3) Paroxysmal atrial fibrillation: nothing seen on pacer interrogation to account for #2 no PAF on tele while hospitalized cont BB cont Eliquis BID (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: (5) Anticoagulant long-term use: Eliquis (6) CKD (chronic kidney disease), stage III: stage 3a CrCl at baseline 50s stable BMP am (7) Paroxysmal ventricular tachycardia: no recent VT events requiring shocks from ICD based on interrogation no VT on tele (8) Polyneuropathy: (9) Cardiomyopathy, nonischemic: EF 40-45% on echo this admission which is actually IMPROVED from prior echo compensated on examination cont BB cont lasix cont Entresto I spoke with Dr Estrada about her low BPs as the cause of her syncope if she has recurrent low BP or orthostasis he prefers we lower her coreg dose orthostatics checked yesterday and were negative (10) Biventricular ICD (implantable cardioverter-defibrillator) in place: as noted above (11) UTI (urinary tract infection): 2nd e.coli received 2 days of rocephin then changed to keflex 500mg BID x 5 additional days ; to day is day #3 of 5 may have contributed to syncopal event at home if she was getting sick (12) Cognitive impairment: patient seems to have some element of cognitive impairment each day she cannot remember conversations from prior, asks the same questions, has little insight into her health problems, etc early dementia vs cognitive impairment?? b12 level earlier this year was about 180 - this is low for senior - start IM replacement 1000mcg daily while here, then switch to 1000mcg daily by mouth checked B1 level - place on supplementation while awaiting the level send to neurology after d/c for thorough neuropsych eval (13) B12 deficiency: recent B12 level was 182 this is a deficient level for an 82yo female in light of #12 start parenteral B12 x 5 days then PO B12 at discharge Plan DVT proph - eliquis updated pt's by phone this evening PT/OT evals appreciated hopefully home tomorrow Discharge Plan Discharge Items Patient Disposition: Home - Self-Care Reason For Visit: SNYCOPE, HYPONATREMIA Discharge Diagnosis: 1. syncope (passing out spells) - due to low blood pressure (and brewing urinary tract infection?) 2. hyponatremia (low sodium) - improved; discharge sodium level 132 3. chronic cough - due to chronic lung problem? [facility] 4. chronic congestive heart failure 5. chronic shortness of breath with exertion - due to chronic lung problem? advise follow-up with [facility] 6. urinary tract infection - resolving 7. vitamin B12 deficiency Activity: As commented below Activity Comment: gradually increase your activities over 5-7 days Non-emergency contact: Primary Care Provider, Systems Software Specialist and Glass Blower Call non-emergency contact if: you have any medication questions and your symptoms worsen Follow-up/Referrals: Jairon Hilliard MD [Primary Care Provider] - (5-7 days ) Sung Estrada MD [Family Provider] - (you have a pacemaker check scheduled with Dr Estrada on 04/07/23 - you can skip this appointment since he saw you in the hospital and your pacemaker device was checked. Please call AM of 04/07 to reschedule this appointment to a future date.) Andrew Merino DO [Physician] - (1-2 weeks to follow-up on your sodium levels ) Cuba Juares MD [Physician] - (please see Dr Juares or one of his partners - first available (3-4 weeks is fine) - for chronic cough and ?chronic lung condition?) Diet: Heart Healthy Fluids: 1500ml (6 cups) Ambulatory Orders: Basic Metabolic Panel (Routine) Timeframe: [id number] Location: Determined by Patient Ordered By: Adrien Coppola Attending Provider Instructions: Mrs Carrillo, You were hospitalized after having had syncope (fainting/passing out spells) at home. These episodes were likely due to low blood pressure. When EMS arrived to your home they documented blood pressures in the 70s and 80s. We had your pacemaker device interrogated and it did NOT show any abnormal heart rhythms at the time of your spells at home. We did not find evidence of heart attack. 2 other issues were identified when you got admitted -- hyponatremia (low sodium) and urinary tract infection. We treated the urinary tract infection with antibiotics. The hyponatremia / low sodium problem was treated with fluid restriction, salt tablets, and furosemide. Your sodium level gradually improved from a low of 123 to a high of 132 on day of discharge. Records show your sodium level has typically run about 133-134 over the last 1-2 years. There are likely multiple reasons why your sodium level has been low. [facility] assisted us with management of your low sodium levels. You mentioned to us you have had a chronic cough for a long time. You also told us you get short of breath with walking. Perhaps you have a chronic lung condition causing the cough and shortness of breath. I would recommend that you have a visit with a [facility] provider to have further testing for these symptoms. Recommendations - 1. Low Sodium - * restrict total fluid intake to NO MORE THAN 1500ml in a 24-hour period (50 ounces of all fluids in total); water, juice, soda, coffee, tea, etc -anything you drink- counts towards this total amount * continue your furosemide water pill every morning as previous * take a salt tablet - sodium chloride 1gm (1 tablet) twice daily, first dose TONIGHT * take the salt tablet in the middle of a meal not on an empty stomach * take the salt tablet until you see the kidney doctors in follow-up 2. Antibiotic for urinary infection - cephalexin 500mg twice daily x 3 days, first dose TONIGHT 3. For nausea or vomiting - may use ondansetron 4mg every 6 hours as needed 4. Your vitamin B12 level was LOW. Take stak-stp-oeeqrpl vitamin B12 1000mcg (1mg) once daily for 6-12 months or as directed by your doctors. You can start this anytime this week 5. For cough, shortness of breath, or wheezing you may take albuterol via plastic spacer device -- 2 puffs every 4 hours as needed. See handout with steps on how to use a spacer device for your inhaler 6. Have a repeat blood test for your sodium. Please have this checked or Friday of this week. An order has been placed in the computer system for this lab test Follow-up - see separate section Return to [facility] if - * you have further episodes of syncope/passing out * you have worsening shortness of breath * you have chest pains * any other concerns It was our pleasure to care for you! -Dr Tolentino Addtl Substitute Bus Driver Provider Instructions: Call 911 and go to the Emergency Room if: * You have tightness or pain in your chest that does not go away with rest * You are very short of breath even with rest Call your doctor if you have the following: * Worsening Shortness of breath or difficulty breathing * Wake up at night short of breath * Chest pain * Worsening Cough * Swelling of your hands, fee, or legs * More fatigued or tired with your normal activity * Palpitations - sudden fast heart beats WEIGHT * Weigh yourself every morning after using the bathroom. * Use the same scale. * Wear the same amount of clothing. * Write your weight down on your chart. * Call your doctors if you gain more than 2-3 pounds in 1-2 days. This is typically the first sign of fluid weight gain due to heart problems/congestive heart failure. MEDICATIONS * Use this discharge instruction sheet for instructions. * Take your medications at the time your doctor ordered. * Do not skip a dose of your medicines. * If you miss a dose of medicine, take as soon as possible, but DO NOT DOUBLE A DOSE. * Read your medicine information when you get home. * Know all of the side effects of your medicine. * Call your doctor's office if you have any side effects. * Be sure all of your doctors know what medicine and herbs you take (including cold, flu, and herbal medicine). * Pain Medicine: If you do not get relief from your pain, please call your doctor for help. Take the following with you to your follow-up doctor appointments: * Weight Chart * Medication List * List of questions Do not drink excessive alcohol, beer or wine. Pending Studies at Discharge: Yes Studies:: vitamin B1 level (thiamine level) Stand-Alone Forms: [facility], Smoking Cessation Medications and DC Order Prescriptions: New cephalexin 500 mg Capsule 500 mg PO BID 3 Days Qty: 6 0RF sodium chloride 1,000 mg Tablet,Soluble 1,000 mg PO BID Qty: 30 0RF Rx Instructions: take with food ondansetron 4 mg tablet,disintegrating 4 mg PO Q6H PRN (Reason: nausea and vomiting) Qty: 10 0RF albuterol sulfate [Ventolin HFA] 90 mcg/actuation HFA aerosol inhaler 2 puff inhalation Q4H PRN (Reason: cough/shortness of breath/wheezing) Qty: 8.5 0RF Rx Instructions: use with plastic spacer device. cyanocobalamin (vitamin B-12) 1,000 mcg tablet 1,000 mcg PO DAILY Qty: 90 2RF Rx Instructions: purchase [id number] Continued carvedilol 25 mg tablet 25 mg PO BID Qty: 180 3RF Rx Instructions: must administer with a meal/food Eliquis 5 mg tablet 5 mg PO BID Qty: 180 3RF furosemide [Lasix] 20 mg tablet 20 mg PO DAILY Qty: 100 3RF Rx Instructions: May take an additional 20 mg as needed for weight gain, swelling. Entresto 49-51 mg tablet 1 tab PO BID Qty: 180 3RF acetaminophen [Tylenol Extra Strength] 500 mg tablet 500 - 1,000 mg PO Q4H PRN (Reason: Pain) Discharge Orders: Discharge Order (Routine); Ordered 04/06/23 Ordered By: Adrien Moore/Other Patient Handouts: Using an Inhaler with a Spacer, What Is Syncope, Causes of Syncope Admission Data Admit Date/Time: 04/01/23 05:35 Attending Provider: Adrien Tolentino Admit Provider: [place] Primary Care Provider: Jairon Hilliard Other Providers: [place] ; Sung Estrada ; Andrew Merino Coding Diagnoses Hyponatremia E87.1 Syncopal episodes R55 Paroxysmal atrial fibrillation I48.0 Ductal carcinoma in situ (DCIS) of left breast D05.12 Anticoagulant long-term use Z79.01 CKD (chronic kidney disease), stage III N18.30 Paroxysmal ventricular tachycardia I47.2 Polyneuropathy G62.9 Cardiomyopathy, nonischemic I42.8 Biventricular ICD (implantable cardioverter-defibrillator) in place Z95.810 UTI (urinary tract infection) N39.0 Cognitive impairment R41.89 B12 deficiency E53.8
== END 2023-04-06 14:18 | disposition home or self-care (01) | DRG 641 ==
LOC: ED 02:06 → 2S 05:35 → SUATTDRO 05:35 → 2S 08:17 → 2E 04-06 04:18

== ENCOUNTER 2023-10-30 14:14 | Inpatient (IN) ==
[2023-10-30] MEDS ORDERED: RAPID SEQUENCE INDUCTION BAG ONE (14:16)
[2023-10-30] MEDS ORDERED: FUROSEMIDE INJ 20 MG/2 ML VIAL IV ONE ×2 (14:26→15:38)
--- NOTE | 2023-10-30 14:26 | Emergency Department Note ---
Impression & Plan Acute hypoxemic respiratory failure, Acute exacerbation of congestive heart failure, COVID-19, Acute UTI ED Provider Note NAME: DREW SUTTON AGE: 82 SEX: F : 1940 ARRIVES VIA: Ambulance INFORMANT: Patient, ED PROVIDER(S): Braulio Faria MD CHIEF COMPLAINT: Shortness of breath MEDICAL DECISION MAKING: Patient presents due to concern for shortness of breath and respiratory distress noted to be 6 6% on room air. Patient does have fairly clear breath sounds and no significant lower extremity edema. Bedside [id number] ultrasound does show bilateral B-lines and depressed EF with possible small/trace pericardial effusion without evidence of tamponade. Patient did have CPAP initiated IV Lasix blood work VBG. Patient's chest x-ray does show pulmonary edema. Blood work shows a normal white count mild anemia hemoglobin 11.4 with a normal platelet count. Patient's kidney function unremarkable hyponatremia which is likely secondary to CHF. Calcium slightly low at 8.5. Patient's BNP is 2100. Urinalysis does show the possibility of infection was ordered Rocephin. COVID-19 detected and the patient was ordered dexamethasone 6 mg IV. I did speak with the on-call hospitalist service Dr. Kelly. Patient was reassessed several times and was looking very comfortable on the BiPAP. Patient was admitted to the medicine service. Critical Care: I have personally spent 40 minutes of critical care time in direct management of this patient. This includes bedside care, interpretation of diagnostic studies, and testing, discussion with consultants, patient, and family members, and other require inpatient management activities. This 40 minutes is in excess of all separately billable procedures. Procedures: Limited Point of Care Cardiac Ultrasound performed by me: Indication: Shortness of breath Findings: Limited echocardiography revealed depressed EF wall motion appeared depressed with depressed EF. HR high 90s. Additional findings: Trace pericardial effusion without evidence of tamponade. Bilateral B-lines noted and IVC appeared plethoric with limited respiratory variability. Impression: Possible CHF Discussion w/ other healthcare providers: Dr. Kelly inpatient medicine service Prior /Outside records reviewed: I reviewed an echocardiogram report completed September 15, 2023. It was noted the patient has a dilated LV with an EF of 30 to 35% mild global hypokinesis. Moderate to severe mitral regurgitation. Differential diagnosis: Reactive airway disease, pneumonia, pneumothorax, COPD, CHF, ACS, pulmonary embolism, musculoskeletal, GERD as well as other pathologies were considered. Diagnostics, as interpreted by me: ECG: A sensed V paced rhythm rate of 100, wide QRS, right axis deviation. No obvious ST elevations, PVCs noted. Cardiac monitoring: An order was placed for continuous cardiac monitoring. The monitor shows a rate of 102 with paced rhythm. Patient was placed on pulse oximetry Medical decision rules: None Imaging studies: I informally interpreted the patient's chest x-ray which does show pulmonary edema with formal report to follow. HPI: Patient presents due to concern for worsening shortness of breath and associated dyspnea EMS was called by the as the patient was having significant difficulty with breathing. Patient states this been ongoing several days but acutely worse today. Patient has had dypsnea on exertion and orthopnea and states that this is an ongoing issue but has been acutely worse. The patient denies any cough or fever no nausea vomiting or diarrhea and denies any abdominal pain. Patient does have a known cardiac history and does follow with Dr. Alex. The patient states that she is very "faithful" with her medications but did not take them this morning. EMS noted the patient was 66% on room air did patient placed the patient on CPAP. The patient's vitals and saturations did improve patient presents due to concern for respiratory distress and associated dyspnea. PAST MEDICAL HISTORY: See Below PAST SURGICAL HISTORY: See Below SOCIAL HISTORY: See Below HOME MEDICATIONS: See Below ALLERGIES: See Below VITALS: See Below PHYSICAL EXAMINATION: GENERAL: CPAP mask in place. EYE EXAM: Normal conjunctiva. PERRL, no anisocoria and EOM's grossly intact w/o pain. OROPHARYNX: Moist mucus membranes, grossly normal dentition. NECK: Supple, no nuchal rigidity, no adenopathy, non-tender. No signs of meningismus. FROM of the neck with good chin to chest and neck extension. No stridor. LUNGS: Clear to auscultation. Normal chest wall mechanics. HEART: Tachycardic and regular, no MRG. ABDOMEN: Abdomen soft, non-tender, no masses, no rebound or guarding. BACK: No CVA TTP. SKIN: No rashes and no bruising. UPPER EXTREMITIES: Upper extremities are grossly normal. LOWER EXTREMITIES: Grossly normal, no edema. NEURO EXAM: A&O x3, cranial nerves II-XII grossly intact, normal speech, moves all 4 extremities. Past Med/Surg History Medical History Lumbar disc disease Restless legs Arthritis of knee Nasal septal deviation Hypertrophy of both inferior nasal turbinates Allergic rhinitis Acute bronchitis History of varicose veins Vitamin D deficiency Urinary frequency Snoring Pre-diabetes Polyneuropathy Paroxysmal ventricular tachycardia Pain of finger of left hand Malignant neoplasm of breast LBBB (left bundle branch block) Joint pain Impaired glucose metabolism Goiter Generalized osteoarthritis of multiple sites Fibromyalgia Female stress incontinence Fatigue Encounter for routine gynecological examination Dyspnea on exertion Chronic sinusitis Chronic maxillary sinusitis Cardiomyopathy, nonischemic Biventricular ICD (implantable cardioverter-defibrillator) in place Acute hypersomnolence disorder Pacemaker HTN (hypertension) No pertinent family history Surgical History History of vaginal hysterectomy H/O umbilical hernia repair History of lumpectomy left breast Hx of colonoscopy History of cholecystectomy History of breast biopsy Family History Mother Breast cancer Hypertension Cancer Gallbladder disease Brother Hypertension Diabetes Other No pertinent family history Denies family history of Ovarian cancer Prostate cancer Myocardial infarction Colorectal cancer Social History Smoking Status: Never smoker Age Started Using Tobacco: 18; Age Quit Using Tobacco: 23; Second Hand Exposure: No; Hx Alcohol Use: No Hx Substance Use: No Preferred Language: Danish Communication Ability: Effective Visual Impairment: No Limitations Hearing Ability: Hard of Hearing 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 Beliefs That Will Affect Care: None marital status: Current Living Situation: Spouse and Family Current Living Situation Comment: first floor living 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 Other Information That Helps Us Care for You: No Feels Safe at Home: Yes Safety Concerns: Feels Safe At This Time Childhood Exposure to Second-Hand Smoke: No Diet: regular Diet Comment: regular caffeine: Yes during the past year weight has: other Dental Care, Regularly: Yes Physical Activity Frequency: Does not Exercise Physical Activity Frequency Comment: limited by physical condition Seatbelt Use: always Sunscreen Use: Yes Assistive Devices: Cane and Glasses Allergies Allergies Allergy/AdvReac Type Severity Reaction Status Date / Time duloxetine [From Cymbalta] Allergy Unknown Unknown Verified 09/17/23 11:13 Egg Derived Allergy Unknown Unknown Verified 09/17/23 11:13 ciprofloxacin AdvReac Severe Elaine Verified 09/17/23 11:13 Muscle aches and weakness epinephrine AdvReac Intermediate NERVOUS;INCREASED Verified 09/17/23 11:13 HR meperidine AdvReac Intermediate VOMITING Verified 09/17/23 11:13 nitrofurantoin AdvReac Intermediate upset Verified 09/17/23 11:13 [From Macrobid] stomach Home Meds Home Medications Medication Instructions Recorded Confirmed acetaminophen 500 mg tablet 500 - 1,000 mg PO Q4H PRN Pain 05/20/19 10/30/23 (Tylenol Extra Strength) sodium chloride 1,000 mg soluble 500 mg PO BID 05/22/23 10/30/23 tablet Previous Rx's Medication Instructions Recorded sacubitril 49 mg-valsartan 51 mg 1 tab PO BID #180 tabs 02/21/23 tablet (Entresto) albuterol sulfate 90 mcg/actuation 2 puff inhalation Q4H PRN 04/06/23 aerosol inhaler (Ventolin HFA) cough/shortness of breath/wheezing #8.5 grams cyanocobalamin (vitamin B-12) 1,000 mcg PO DAILY #90 tabs 04/06/23 1,000 mcg tablet ondansetron 4 mg disintegrating 4 mg PO Q6H PRN nausea and 04/06/23 tablet vomiting #10 tabs carvedilol 12.5 mg tablet 12.5 mg PO BID #180 tabs 04/11/23 furosemide 20 mg tablet (Lasix) 20 mg PO DAILY PRN edema #90 tabs 09/22/23 apixaban 5 mg tablet (Eliquis) 5 mg PO BID #180 tabs 09/24/23 Results & Data (ED) Vital Signs Vital Signs - 24 hr 10/30/23 14:20 10/30/23 14:20 10/30/23 14:21 Temperature 36.7 C Temperature Source Axillary Pulse Rate 100 H 105 H Pulse Rate from SpO2 Sensor Respiratory Rate 30 H 33 H Respiratory Effort / Characteristics Spontaneous Labored Short of Breath Spontaneous Labored Spontaneous Respiratory Pattern Tachypnea Blood Pressure 162/112 H Blood Pressure Mean 128 Pulse Oximetry 98 40 L Oxygen Delivery Method BiPAP Fraction of Inspired Oxygen 40 40 SaO2/FiO2 Ratio 245 Sepsis Recent Fever Within 48 Hours No Sepsis New/Unexplained Change in Mental Status No Sepsis Action Taken by Nursing No Action Required 10/30/23 14:36 10/30/23 14:37 10/30/23 14:45 Temperature Temperature Source Pulse Rate 98 H 100 H Pulse Rate from SpO2 Sensor 102 H 101 H Respiratory Rate 23 24 Respiratory Effort / Characteristics Respiratory Pattern Blood Pressure Blood Pressure Mean Pulse Oximetry 93 98 Oxygen Delivery Method BiPAP BiPAP Fraction of Inspired Oxygen 40 40 SaO2/FiO2 Ratio Sepsis Recent Fever Within 48 Hours Sepsis New/Unexplained Change in Mental Status Sepsis Action Taken by Nursing 10/30/23 14:51 10/30/23 15:00 10/30/23 15:00 Temperature Temperature Source Pulse Rate 94 H Pulse Rate from SpO2 Sensor 93 H Respiratory Rate 24 Respiratory Effort / Characteristics Respiratory Pattern Blood Pressure 140/87 Blood Pressure Mean 103 Pulse Oximetry 95 94 Oxygen Delivery Method BiPAP BiPAP Fraction of Inspired Oxygen 40 40 SaO2/FiO2 Ratio 237 Sepsis Recent Fever Within 48 Hours Sepsis New/Unexplained Change in Mental Status Sepsis Action Taken by Nursing 10/30/23 15:15 10/30/23 15:30 10/30/23 15:30 Temperature Temperature Source Pulse Rate 87 97 H Pulse Rate from SpO2 Sensor 87 96 H Respiratory Rate 20 24 Respiratory Effort / Characteristics Respiratory Pattern Blood Pressure 135/105 H Blood Pressure Mean 111 Pulse Oximetry 99 95 Oxygen Delivery Method BiPAP BiPAP Fraction of Inspired Oxygen 40 40 SaO2/FiO2 Ratio Sepsis Recent Fever Within 48 Hours Sepsis New/Unexplained Change in Mental Status Sepsis Action Taken by Nursing 10/30/23 15:45 10/30/23 16:00 10/30/23 16:00 Temperature Temperature Source Pulse Rate 83 81 Pulse Rate from SpO2 Sensor 84 83 Respiratory Rate 20 19 Respiratory Effort / Characteristics Respiratory Pattern Blood Pressure 121/69 Blood Pressure Mean 88 Pulse Oximetry 98 96 Oxygen Delivery Method BiPAP Fraction of Inspired Oxygen 40 SaO2/FiO2 Ratio Sepsis Recent Fever Within 48 Hours Sepsis New/Unexplained Change in Mental Status Sepsis Action Taken by Skilled Nursing Medications Current Medication List: was personally reviewed by me Laboratory Data Attestation: I reviewed the patient's lab results. 10/30/23 14:30 10/30/23 14:30 Lab Results 10/30/23 10/30/23 10/30/23 Range/Units 14:30 14:40 15:00 WBC 4.90 (4.8-10.8) K/ul RBC 3.84 L (4.20-5.40) M/uL Hgb 11.4 L (12.0-16.0) g/dl Hct 34.9 L (37.0-47.0) % MCV 90.9 (80.0-100.0) fL MCH 29.7 (25.0-34.0) pg MCHC 32.7 (32.0-36.0) g/dL RDW Std Deviation 47.8 H (36.4-46.3) fL RDW Coeff of Morgan 14.3 (11.5-14.5) % Plt Count 153 (130-400) K/uL MPV 9.9 (9.4-12.4) fL Immature Gran % (Auto) 0.4 % Neut % (Auto) 60.4 % Lymph % (Auto) 22.7 % Leon % (Auto) 15.5 % Eos % (Auto) 0.4 % Baso % (Auto) 0.6 % Neut # (Auto) 2.96 (1.40-6.50) K/uL Lymph # (Auto) 1.11 L (1.20-3.40) K/uL Leon # (Auto) 0.76 H (0.11-0.59) K/uL Eos # (Auto) 0.02 (0.00-0.50) K/uL Baso # (Auto) 0.03 (0.00-0.20) K/uL Immature Gran # (Auto) 0.02 (0.01-0.20) K/uL PT 12.6 H (9.0-12.0) Seconds INR 1.2 H (0.9-1.1) APTT 35 H (21-31) Seconds PTT Ratio 1.2 VBG pH 7.26 L (7.36-7.41) VBG pCO2 57 H (38-50) mmHg VBG pO2 30 mmHg VBG HCO3 26 mmol/L VBG O2 Saturation < 60.0 % VBG Base Excess -2.2 mEq/L Sodium 125 L (136-145) mmol/L Potassium 4.3 (3.5-5.1) mmol/L Chloride 92 L (98-107) mmol/L Carbon Dioxide 25 (21-32) mmol/L Anion Gap 8 (3-11) BUN 9 (6-23) mg/dl Creatinine 0.79 (0.6-1.2) mg/dl Est Cr Clr Drug Dosing 60.8 ml/min Est GFR ( Amer) 79.7 ml/min Est GFR (Non-Af Amer) 68.7 ml/min BUN/Creatinine Ratio 11.4 (10-20) Glucose 206 H (70-99(Fasting)) mg/dl Calcium 8.5 L (8.6-10.3) mg/dl Magnesium 1.8 (1.7-2.4) mg/dl Total Bilirubin 0.8 (0.2-1.0) mg/dl AST 54 H (13-39) U/L ALT 29 (7-52) U/L Alkaline Phosphatase 61 (34-104) U/L B-Natriuretic Peptide 2184 H (0-100) pg/ml Total Protein 6.5 (6.0-8.3) gm/dl Albumin 4.0 (3.4-5.0) gm/dl Globulin 2.5 (2.5-4.0) gm/dl Albumin/Globulin Ratio 1.6 (0.9-2) Urine Color Yellow Urine Appearance Cloudy A (Clear) Urine pH 6.0 (4.5-7.5) Ur Specific [place] 1.013 (1.000-1.030) Urine Protein 2+ H (Negative) Urine Glucose (UA) Negative (Negative) Urine Ketones Trace H (Negative) Urine Blood Trace H (Negative) Urine Nitrite Positive A (Negative) Urine Bilirubin Negative (Negative) Urine Urobilinogen Negative (Negative) Ur Leukocyte Esterase 2+ H (Negative) Urine WBC (Auto) >30 H (0-5) /hpf Urine RBC (Auto) 5-10 H (0-4) /hpf U Hyaline Cast (Auto) 5-10 H (0-5) /lpf U Epithel Cells (Auto) 5-10 H (0-5) /lpf Urine Bacteria (Auto) 4+ H (Negative) Adenovirus (PCR) Not Detected (NotDetected) B. pertussis DNA (PCR) Not Detected (NotDetected) B.parapertussis DNA PCR Not Detected (NotDetected) C. pneumoniae DNA (PCR) Not Detected (NotDetected) Coronavirus OC43 (PCR) Not Detected (NotDetected) Coronavirus HKU1 (PCR) Not Detected (NotDetected) Coronavirus 229E (PCR) Not Detected (NotDetected) SARS-CoV-2 (PCR) DETECTED A* (NotDetected) Coronavirus NL63 (PCR) Not Detected (NotDetected) Human Metapneumovir PCR Not Detected (NotDetected) Influenza Type A (PCR) Not Detected (NotDetected) Influenza Type B (PCR) Not Detected (NotDetected) M. pneumoniae (PCR) Not Detected (NotDetected) Parainfluenza 1 (PCR) Not Detected (NotDetected) Parainfluenza 2 (PCR) Not Detected (NotDetected) Parainfluenza 3 (PCR) Not Detected (NotDetected) Parainfluenza 4 (PCR) Not Detected (NotDetected) RSV (PCR) Not Detected (NotDetected) Entero/Rhino (PCR) Not Detected (NotDetected) Administered Medications Apixaban (Apixaban 5 Mg Tablet) 5 mg PO BID [facility] Stop: 11/29/23 20:59 Last Admin: 10/30/23 21:13 Dose: 5 mg Documented By: LILLIAN Carvedilol (Carvedilol 12.5 Mg Tab) 12.5 mg PO BIDM [facility] Stop: 11/29/23 18:14 Last Admin: 10/30/23 21:57 Dose: 12.5 mg Documented By: LILLIAN Insulin Aspart (Insulin Aspart Per Unit Charge) 0 units SC ACHS [facility] Stop: 11/29/23 16:29 Last Admin: 10/30/23 22:05 Dose: Not Given Documented By: Admin: 10/30/23 18:09 Dose: Not Given Documented By: NRB Co-signed By: [place] Potassium Chloride (Potassium Chloride 10 Meq Tabcr) 10 meq PO BID [facility] Stop: 11/29/23 20:59 Last Admin: 10/30/23 21:10 Dose: 10 meq Documented By: LILLIAN Sacubitril/Valsartan (Valsartan/Sacubitril 51/49 Mg Tab) 1 tab PO BID [facility] Stop: 11/29/23 20:59 Last Admin: 10/30/23 21:11 Dose: 1 tab Documented By: LILLIAN Sodium Chloride (Sodium Chloride 1 Gm Tablet) 0.5 gm PO BID [facility] Stop: 11/29/23 20:59 Last Admin: 10/30/23 21:12 Dose: 0.5 gm Documented By: LILLIAN Discontinued Medications Dexamethasone Sodium Phosphate (DexamethasonePf 10 Mg/Ml Vial) 6 mg IV NOW ONE Stop: 10/30/23 15:58 Last Admin: 10/30/23 16:26 Dose: 6 mg Documented By: HILDA Furosemide (Furosemide Inj 20 Mg/2 Ml Vial) 20 mg IV ONE ONE Stop: 10/30/23 14:27 Last Admin: 10/30/23 14:47 Dose: 20 mg Documented By: HELIO Furosemide (Furosemide Inj 20 Mg/2 Ml Vial) 20 mg IV ONE ONE Stop: 10/30/23 15:39 Last Admin: 10/30/23 15:48 Dose: 20 mg Documented By: HELIO Ceftriaxone Sodium (Rocephin) 2,000 mg in 50 mls @ 100 mls/hr IV NOW STA Stop: 10/30/23 16:26 Last Infusion: 10/30/23 16:55 Dose: Infused Documented By: Admin: 10/30/23 16:25 Dose: 100 mls/hr Documented By: HILDA Remdesivir 200 mg/ Sodium (Chloride) 250 mls @ 125 mls/hr IV ONE ONE; Protocol Stop: 10/30/23 20:14 Last Infusion: 10/30/23 21:46 Dose: Infused Documented By: Admin: 10/30/23 19:35 Dose: 125 mls/hr Documented By: LILLIAN Miscellaneous (Rapid Sequence Induction Bag) Confirm Administered Dose 1 each N/A .STK-MED ONE Stop: 10/30/23 14:17 Last Admin: 10/30/23 16:01 Dose: Not Given Documented By: HELIO Imaging Data Radiologist's Impression: Chest X-Ray 10/30/23 14:23 XR chest 1V portable HISTORY: Dyspnea COMPARISON: Chest 04/06/2023. FINDINGS: No pneumothorax. The heart is enlarged. This has progressed. There is perihilar interstitial/vascular thickening consistent with pulmonary edema. There are trace bilateral pleural effusions. Left-sided pacemaker/defibrillator again noted. IMPRESSION: Cardiomegaly with mild interstitial pulmonary edema and trace bilateral pleural effusions. This has developed in the interval. ACT 112: Negative or not required by law. Electronically signed by: Praneeth Allison M.D. 10/30/2023 3:02 PM Discharge Plan Visit Data Chief Complaint: Respiratory Distress ED Provider: Braulio Faria Discharge Problem: Acute hypoxemic respiratory failure, Acute exacerbation of congestive heart failure, COVID-19, Acute UTI Patient Disposition: Admitted As Inpatient Discharge Instructions Interventions: ED Discharge Assessment Last Done: 10/30/23 17:53 Discharge Problem: Acute exacerbation of congestive heart failure Qualifiers: Heart failure type: unspecified Qualified Code(s): I50.9 - Heart failure, unspecified
[2023-10-30 14:47] LABS: Basophils # (auto) 0.03 K/uL (0.00-0.20); Basophils % (auto) 0.6 %; Eosinophils # (auto) 0.02 K/uL (0.00-0.50); Eosinophils % (auto) 0.4 %; Hematocrit (blood only) 34.9 % (37.0-47.0); Hemoglobin 11.4 g/dl (12.0-16.0); Immature Granulocytes # (auto) 0.02 K/uL (0.01-0.20); Immature Granulocytes % (auto) 0.4 %; Lymphocytes # (auto) 1.11 K/uL (1.20-3.40); Lymphocytes % (auto) 22.7 %; Mean Corpuscular Hemoglobin 29.7 pg (25.0-34.0); Mean Corpuscular Hgb Conc 32.7 g/dL (32.0-36.0); Mean Corpuscular Volume 90.9 fL (80.0-100.0); Mean Platelet Volume 9.9 fL (9.4-12.4); Monocytes # (auto) 0.76 K/uL (0.11-0.59); Monocytes % (auto) 15.5 %; Neutrophils # (auto) 2.96 K/uL (1.40-6.50); Neutrophils % (auto) 60.4 %; Platelet Count 153 K/uL (130-400); RDW Coefficient of Variation 14.3 % (11.5-14.5); RDW Standard Deviation 47.8 fL (36.4-46.3); Red Blood Count 3.84 M/uL (4.20-5.40)
[2023-10-30 14:54] LABS: Base Excess VBG -2.2 mEq/L; HCO3 VBG 26 mmol/L; Oxygen Saturation VBG < 60.0 %; PCO2 VBG 57 mmHg (38-50); PO2 VBG 30 mmHg; pH VBG 7.26 (7.36-7.41)
[2023-10-30 15:00] LABS: INR 1.2 (0.9-1.1); Partial Thromboplastin Ratio 1.2; Partial Thromboplastin Time 35 Seconds (21-31); Prothrombin Time 12.6 Seconds (9.0-12.0)
--- NOTE | 2023-10-30 15:04 | XRay Report ---
XR chest 1V portable HISTORY: Dyspnea COMPARISON: Chest 04/06/2023. FINDINGS: No pneumothorax. The heart is enlarged. This has progressed. There is perihilar interstitia l/vascular thickening consistent with pulmonary edema. There are trace bilateral pleural effusions. L eft-sided pacemaker/defibrillator again noted. IMPRESSION: Cardiomegaly with mild interstitial pulmonary edema and trace bilateral pleural effusions. This has d eveloped in the interval. ACT 112: Negative or not required by law. Electronically signed by: Praneeth Allison M.D. 10/30/2023 3:02 PM
[2023-10-30 15:07] LABS: Albumin Globulin Ratio 1.6 (0.9-2); BUN Creatinine Ratio 11.4 (10-20); Bilirubin,Total 0.8 mg/dl (0.2-1.0); Calcium 8.5 mg/dl (8.6-10.3); Creatinine Clr Calc Pharmacy 60.8 ml/min; Est GFR (African American) 79.7 ml/min; Est GFR (Non-African American) 68.7 ml/min; Globulin 2.5 gm/dl (2.5-4.0); Magnesium 1.8 mg/dl (1.7-2.4); Potassium 4.3 mmol/L (3.5-5.1); Total Protein 6.5 gm/dl (6.0-8.3)
[2023-10-30 15:31] LABS: Appearance Urine Cloudy (Clear); Bacteria Urine Automated 4+ (Negative); Bilirubin Urine Negative (Negative); Blood Urine Trace (Negative); Color Urine Yellow; Glucose Urine UA Negative (Negative); Ketones Urine Trace (Negative); Leukocyte Esterase Urine 2+ (Negative); Nitrite Urine Positive (Negative); Protein Urine 2+ (Negative); Specific Gravity Urine 1.013 (1.000-1.030); Urobilinogen Urine Negative (Negative); WBC Urine Automated >30 /hpf (0-5)
[2023-10-30 15:50] LABS: Adenovirus PCR Not Detected (NotDetected); Bordetella parapertussis PCR Not Detected (NotDetected); Bordetella pertussis PCR Not Detected (NotDetected); Chlamydia pneumoniae PCR Not Detected (NotDetected); Coronavirus 229E PCR Not Detected (NotDetected); Coronavirus HKU1 PCR Not Detected (NotDetected); Coronavirus NL63 PCR Not Detected (NotDetected); Coronavirus OC43PCR Not Detected (NotDetected); Human Metapneumovirus PCR Not Detected (NotDetected); Influenza A PCR Not Detected (NotDetected); Influenza B PCR Not Detected (NotDetected); Mycoplasma pneumoniae PCR Not Detected (NotDetected); Parainfluenza Virus 1 PCR Not Detected (NotDetected); Parainfluenza Virus 2 PCR Not Detected (NotDetected); Parainfluenza Virus 3 PCR Not Detected (NotDetected); Parainfluenza Virus 4 PCR Not Detected (NotDetected); Respiratory Syncytial VirusPCR Not Detected (NotDetected); Rhinovirus/Enterovirus PCR Not Detected (NotDetected)
[2023-10-30 15:53] LABS: Coronavirus CoV-2 (COVID19)PCR DETECTED (NotDetected)
--- NOTE | 2023-10-30 15:56 | History & Physical Report ---
Date of Service October 30, 2023 Assessment & Plan (1) Acute on chronic systolic CHF (congestive heart failure): Plan: Hypoxic respiratory failure due to COVID with superimposed acute on chronic heart failure with reduced ejection fraction See CHF and COVID management as below Acute on chronic CHFrEF, hx nonischemic cardiomyopathy No dietary indiscretion, patient is COVID-positive. BNP is elevated, chest x- ray with evidence of pulmonary edema. [id number] ultrasound with B-lines Last echo 08/2023 EF 30-35%, mild global hypokinesis with akinesis of mid to basal inferior wall. This was a slight interval decline compared to 03/2023. Patient denies chest pain/anginal equivalents EKG: Atrial sensed ventricular paced rhythm, QTc 528 Bedside ultrasound with concern for small pericardial effusion without evidence of tamponade. Trivial effusion was noted on echo 08/2023? Interval enlargement. Repeat formal TTE is pending Patient received 20 mg of Lasix with brisk output, over 600 cc in Squires bag at time of assessment. Will continue BID17 on admit for fluid overload, hold once euvolemic -Fluid restrict to 1000 cc/day Continue BiPAP, patient rapidly clinically improving and may progress to nasal cannula when able to maintain sats No signs of ACS Renal function at baseline. Entresto/carvedilol continued. (2) COVID-19: Plan: COVID-19 Approximately 2-3 days of illness Dexamethasone started and continued Due to severe comorbidity but with underlying history of CKD 3 discussed for/benefits of remdesivir. Her creatinine clearance is currently 60 with a GFR of 68, creatinine 0.79 on admission. On shared decision making will initiate remdesivir and follow labs daily, discontinue if clearance decreases below 30 (3) CKD (chronic kidney disease), stage III: Plan: CKD, Chronic hyponatremia Creatinine baseline around 0.7 Baseline ranges from around 125-130, last 129 decreased to 125 in the setting of acute volume overload and heart failure Continue diuresis, fluid restriction 1000cc/d Entresto continued (4) HTN (hypertension): Plan: Home medications continued (5) Paroxysmal atrial fibrillation: Plan: A-fib Paced rhythm on admission Eliquis continued, carvedilol continued Last device interrogation 08/2023 with A-fib burden less than 0.1%, 89% biventricular paced, no significant change from prior History of Present Illness Primary Care Provider: Kathy Arriola DO Kathrin Carrillo is an 82-year-old female with a past medical history of CKD 3, nonischemic cardiomyopathy with biventricular ICD, paroxysmal A-fib on Eliquis rate controlled with carvedilol, B12 deficiency, hypertension, stable hyponatremia on sodium chloride tablets and daily Lasix with fluid restriction who presented to the ER in respiratory distress with a O2 sat of 66% without lower extremity edema and with clear breath sounds on initial ER evaluation. POC ultrasound was performed by ER provider which showed bilateral B-lines, depressed EF, and trace pericardial effusion without evidence of tamponade, patient was placed on CPAP and given Lasix. BNP baseline not available, elevated on admission to 2184. VBG with respiratory acidosis 7.2 /. UA contaminated versus infected appearing with epithelial cell contamination but 4+ bacteria, leukocyte esterase, and nitrites. No white count is present. Creatinine is at baseline. Chest x-ray shows interstitial pulmonary edema and bilateral pleural effusions worsened compared to 03/2023. Patient is recommended for admission and treatment of acute on chronic heart failure with reduced ejection fraction. Patient reports that she has had shortness of breath and general fatigue with a nonproductive cough which has been worsening for about 3 to 4 days. Her had a upper respiratory illness 1 week ago which he thought might have been the flu but did not have any formal testing. She denies any change in diet, no salt indiscretion. She has not had chest pain at any point. No leg swelling or weight gain,. Feels her shortness of breath is persistent but does not get worse while laying flat/denies orthopnea. She has not had any syncope or presyncope. She denies abdominal pain. No nausea/vomiting/diarrhea. She received the first COVID-vaccine initially but no subsequent boosters. She does not use tobacco or alcohol. Full code. Medication allergies, medical history reviewed at bedside. No additional questions at time of admission Allergies Allergy/AdvReac Type Severity Reaction Status Date / Time duloxetine [From Cymbalta] Allergy Unknown Unknown Verified 09/17/23 11:13 Egg Derived Allergy Unknown Unknown Verified 09/17/23 11:13 ciprofloxacin AdvReac Severe Elaine Verified 09/17/23 11:13 Muscle aches and weakness epinephrine AdvReac Intermediate NERVOUS;INCREASED Verified 09/17/23 11:13 HR meperidine AdvReac Intermediate VOMITING Verified 09/17/23 11:13 nitrofurantoin AdvReac Intermediate upset Verified 09/17/23 11:13 [From Macrobid] stomach Home Medications Medication Instructions Recorded Confirmed Type acetaminophen 500 mg tablet 500 - 1,000 mg PO Q4H PRN Pain 05/20/19 10/30/23 History (Tylenol Extra Strength) sacubitril 49 mg-valsartan 51 mg 1 tab PO BID #180 tabs 02/21/23 10/30/23 Rx tablet (Entresto) albuterol sulfate 90 mcg/actuation 2 puff inhalation Q4H PRN 04/06/23 10/30/23 Rx aerosol inhaler (Ventolin HFA) cough/shortness of breath/wheezing #8.5 grams cyanocobalamin (vitamin B-12) 1,000 mcg PO DAILY #90 tabs 04/06/23 10/30/23 Rx 1,000 mcg tablet ondansetron 4 mg disintegrating 4 mg PO Q6H PRN nausea and 04/06/23 10/30/23 Rx tablet vomiting #10 tabs carvedilol 12.5 mg tablet 12.5 mg PO BID #180 tabs 04/11/23 10/30/23 Rx sodium chloride 1,000 mg soluble 500 mg PO BID 05/22/23 10/30/23 History tablet furosemide 20 mg tablet (Lasix) 20 mg PO DAILY PRN edema #90 tabs 09/22/23 10/30/23 Rx apixaban 5 mg tablet (Eliquis) 5 mg PO BID #180 tabs 09/24/23 10/30/23 Rx Past Med/Surg History Medical History Lumbar disc disease Restless legs Arthritis of knee Nasal septal deviation Hypertrophy of both inferior nasal turbinates Allergic rhinitis Acute bronchitis History of varicose veins Vitamin D deficiency Urinary frequency Snoring Pre-diabetes Polyneuropathy Paroxysmal ventricular tachycardia Pain of finger of left hand Malignant neoplasm of breast LBBB (left bundle branch block) Joint pain Impaired glucose metabolism Goiter Generalized osteoarthritis of multiple sites Fibromyalgia Female stress incontinence Fatigue Encounter for routine gynecological examination Dyspnea on exertion Chronic sinusitis Chronic maxillary sinusitis Cardiomyopathy, nonischemic Biventricular ICD (implantable cardioverter-defibrillator) in place Acute hypersomnolence disorder Pacemaker HTN (hypertension) No pertinent family history Surgical History History of vaginal hysterectomy H/O umbilical hernia repair History of lumpectomy Hx of colonoscopy History of cholecystectomy History of breast biopsy Family History Mother Breast cancer Hypertension Cancer Gallbladder disease Brother Hypertension Diabetes Other No pertinent family history Denies family history of Ovarian cancer Prostate cancer Myocardial infarction Colorectal cancer Social History Smoking Status: Never smoker Age Started Using Tobacco: 18; Age Quit Using Tobacco: 23; Second Hand Exposure: No; Hx Alcohol Use: No Hx Substance Use: No Preferred Language: German Communication Ability: Effective Visual Impairment: No Limitations Hearing Ability: Hard of Hearing Cathead Worker Required: No Beliefs That Will Affect Care: None marital status: Current Living Situation: Spouse and Family 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 NAD. Cooperative. HEENT: Atraumatic, normocephalic. PERLAA. Vision/hearing grossly intact Pulm: ON bipap, lungs are clear w/o -wheezes, -rales, -rhonchi. No basilar crackles appreciated. Symmetrical chest rise. No increased work of breathing. No respiratory distress. Cardiac: RRR, -mrg. Radial pulses intact and symmetrical. JVD ~1cm above the clavicle with HJR Abdominal: Nontender, nondistended, soft. BS present. Ext: warm, dry. No pitting edema. Results & Data Results & Data Vital Signs (Past 12 Hours) Vital Signs Temp Pulse Resp BP Pulse Ox O2 Del Method FiO2 10/30/23 15:30 135/105 H 01/04/24 15:30 97 H 24 95 BiPAP 40 10/30/23 15:15 87 20 99 BiPAP 40 10/30/23 15:00 94 H 24 94 BiPAP 40 10/30/23 15:00 140/87 10/30/23 14:51 95 BiPAP 40 10/30/23 14:45 100 H 24 98 BiPAP 40 10/30/23 14:37 98 H 10/30/23 14:36 23 93 BiPAP 40 10/30/23 14:21 105 H 33 H 40 L 40 10/30/23 14:20 36.7 C 100 H 30 H 162/112 H 98 BiPAP 40 PG Care Time/CCT Total # of Minutes Spent Total Time Spent with Patient: Total time spent is greater than 50% in coordination of care (as documented) at patient's floor/unit and/or counseling patient: Coding Level of Care Code 97318 INT INP/OBS CARE 3/75MIN Diagnoses Acute on chronic systolic CHF (congestive heart failure) I50.23 COVID-19 U07.1 CKD (chronic kidney disease), stage III N18.30 Essential hypertension I10 Hypertension type: essential hypertension Paroxysmal atrial fibrillation I48.0 (4) HTN (hypertension) Hypertension type: essential hypertension Qualified Code(s): I10 - Essential (primary) hypertension
[2023-10-30] MEDS ORDERED: dexAMETHasone**PF** 10 MG/ML VIAL IV ONE (15:57)
[2023-10-30] MEDS ORDERED: cefTRIAXone SODIUM 2,000 MG/50 ML BAG IV STA (15:57)
[2023-10-30] MEDS ORDERED: CARBOHYDRATES FOR HYPOGLYCEMIA PO PRN (16:28)
[2023-10-30] MEDS ORDERED: GLUCAGON FOR INJ 1 MG VIAL SQ PRN (16:28)
[2023-10-30] MEDS ORDERED: DEXTROSE 50% 50 ML SYRINGE IV PRN (16:28)
[2023-10-30] MEDS ORDERED: GLUCOSE 40% GEL 15 GM TUBE PO PRN (16:28)
[2023-10-30] MEDS ORDERED: GLUCOSE 10 TAB/TUBE PO PRN (16:28)
--- NOTE | 2023-10-30 16:31 | Electrocardiogram Report ---
Test Reason : Blood Pressure : / mmHG Vent. Rate : 100 BPM Atrial Rate : 100 BPM P-R Int : 132 ms QRS Dur : 150 ms QT Int : 410 ms P-R-T Axes : 067 154 016 degrees QTc Int : 528 ms Atrial-sensed ventricular-paced rhythm Abnormal ECG When compared with ECG of 03-APR-2023 05:48, Vent. rate has increased BY 23 BPM Confirmed by Eriberto Dyson ([id number]) on 10/30/2023 4:30:36 PM Referred By: REFERRED SELF Confirmed By:Eriberto Dyson
[2023-10-30] MEDS ORDERED: ACETAMINOPHEN 325 MG TAB PO PRN (17:51)
[2023-10-30] MEDS ORDERED: ALBUTEROL HFA 8 GM INHALER INH PRN (17:51)
[2023-10-30] MEDS ORDERED: ONDANSETRON 4 MG OD TAB PO PRN (17:51)
[2023-10-30] MEDS: INSULIN ASPART PER UNIT CHARGE SC SCH ×2 (18:09→22:05)
[2023-10-30] MEDS ORDERED: REMDESIVIR 200 MG in SODIUM CHLORIDE 0.9% 210 ML IV ONE (18:15)
[2023-10-30] MEDS: POTASSIUM CHLORIDE 10 MEQ TABCR PO SCH (21:10)
[2023-10-30] MEDS: VALSARTAN/SACUBITRIL 51/49 MG TAB PO SCH (21:11)
[2023-10-30] MEDS: SODIUM CHLORIDE 1 GM TABLET PO SCH (21:12)
[2023-10-30] MEDS: APIXABAN 5 MG TABLET PO SCH (21:13)
[2023-10-30] MEDS: carvediloL 12.5 MG TAB PO SCH (21:57)
[2023-10-31 05:59] LABS: Hematocrit (blood only) 32.7 % (37.0-47.0); Immature Granulocytes # (auto) 0.01 K/uL (0.01-0.20); Immature Granulocytes % (auto) 0.3 %; Lymphocytes # (auto) 0.85 K/uL (1.20-3.40); Lymphocytes % (auto) 23.7 %; Mean Corpuscular Hemoglobin 29.6 pg (25.0-34.0); Mean Corpuscular Hgb Conc 33.6 g/dL (32.0-36.0); Mean Corpuscular Volume 87.9 fL (80.0-100.0); Mean Platelet Volume 10.1 fL (9.4-12.4); Monocytes # (auto) 0.32 K/uL (0.11-0.59); Monocytes % (auto) 8.9 %; Neutrophils # (auto) 2.41 K/uL (1.40-6.50); Neutrophils % (auto) 67.1 %; Platelet Count 157 K/uL (130-400); RDW Coefficient of Variation 13.9 % (11.5-14.5); RDW Standard Deviation 44.8 fL (36.4-46.3); Red Blood Count 3.72 M/uL (4.20-5.40); White Blood Count 3.59 K/ul (4.8-10.8)
[2023-10-31 06:12] LABS: BUN Creatinine Ratio 20.3 (10-20); Calcium 8.1 mg/dl (8.6-10.3); Creatinine Clr Calc Pharmacy 70.2 ml/min; Est GFR (African American) 92.6 ml/min; Est GFR (Non-African American) 79.9 ml/min; Potassium 4.1 mmol/L (3.5-5.1)
--- NOTE | 2023-10-31 07:37 | Hospitalist Progress Note ---
Date of Service October 31, 2023 Assessment & Plan (1) Acute on chronic systolic CHF (congestive heart failure): Plan: Hypoxic respiratory failure due to COVID with superimposed acute on chronic heart failure with reduced ejection fraction Acute on chronic HFrEF, hx nonischemic cardiomyopathy No dietary indiscretion, patient is COVID-positive, chest x-ray with evidence of pulmonary edema. EKG: Atrial sensed ventricular paced rhythm, QTc 528 Echo ejection fraction 30 to 35% global hypokinesis of the left ventricle akinesis of the proximal and inferior wall no new changes Patient received 20 mg of Lasix with brisk output, continue BID17 follow hyponatremia and renal function -Fluid restrict to 1500 cc/day Entresto/carvedilol continued. (2) COVID-19: Plan: COVID-19 Approximately 2-3 days of illness Dexamethasone/remdesicir started and continued -CXR is concerning for likely also confounded by acute on chronic systolic heart failure (3) CKD (chronic kidney disease), stage III: Plan: CKD, Chronic hyponatremia, fluid restriction Continue diuresis, fluid restriction 1500cc/d (4) Paroxysmal atrial fibrillation: Plan: A-fib Paced rhythm on admission Eliquis continued, carvedilol continued Last device interrogation 08/2023 with A-fib burden less than 0.1%, 89% biventricular paced, no significant change from prior Admission and Anticipated Discharge Date Admission Date: October 30, 2023 Subjective Patient feels much improved feeling good her breathing is much better than when she arrived. She does have a nonproductive cough Did have good urinary response to diuretic therapy Physical Exam Physical Exam: Patient conversant she is not dyspneic Card exam is regular with a systolic murmur Pulm exam is with fine rales throughout Extremities are without significant edema trace if any Results & Data Results & Data Vital Signs (Past 12 Hours) Vital Signs Temp Pulse Pulse Resp BP BP Pulse Ox 10/31/23 03:35 98.2 F 94 10/31/23 03:33 10/31/23 03:00 80 21 125/92 94 10/31/23 02:30 70 20 94 10/31/23 02:00 80 23 94 10/31/23 01:30 91 H 22 93 10/31/23 01:01 81 10/31/23 01:00 78 23 94 10/31/23 00:30 85 22 95 10/31/23 00:00 86 23 134/78 95 10/30/23 23:30 103 H 21 92 10/30/23 23:00 94 H 24 93 10/30/23 22:30 94 H 21 93 10/30/23 22:00 100 H 20 153/86 H 93 10/30/23 21:30 107 H 29 H 95 10/30/23 21:25 104 H 19 94 10/30/23 21:25 147/87 H 10/30/23 21:11 100 H 24 93 10/30/23 21:00 83 24 90 10/30/23 20:30 102 H 23 95 10/30/23 20:06 10/30/23 20:03 98.6 F 101 H 18 143/90 H 94 10/30/23 20:00 91 H 22 144/90 H 92 10/30/23 19:43 134/101 H 10/30/23 19:43 95 H 23 92 Pulse Ox O2 Del Method O2 Del Method O2 Flow Rate O2 Flow Rate 10/31/23 03:35 Nasal Cannula 2 10/31/23 03:33 Nasal Cannula 10/31/23 03:00 3 10/31/23 02:30 10/31/23 02:00 10/31/23 01:30 10/31/23 01:01 10/31/23 01:00 10/31/23 00:30 10/31/23 00:00 10/30/23 23:30 10/30/23 23:00 10/30/23 22:30 10/30/23 22:00 Nasal Cannula 2 10/30/23 21:30 10/30/23 21:25 10/30/23 21:25 10/30/23 21:11 10/30/23 21:00 10/30/23 20:30 10/30/23 20:06 92 Nasal Cannula 2 10/30/23 20:03 Nasal Cannula 2 10/30/23 20:00 2 10/30/23 19:43 10/30/23 19:43 Laboratory Results Reviewed CBC reviewed chemistry PG Care Time/CCT Total # of Minutes Spent Total Time Spent with Patient: Total time spent is greater than 50% in coordination of care (as documented) at patient's floor/unit and/or counseling patient: Coding Level of Care Code 62606 SUB INP/OBS CARE 3/50MIN Diagnoses Acute on chronic systolic CHF (congestive heart failure) I50.23 COVID-19 U07.1 CKD (chronic kidney disease), stage III N18.30 Paroxysmal atrial fibrillation I48.0
[2023-10-31] MEDS: SODIUM CHLORIDE 1 GM TABLET PO SCH ×2 (08:46→21:18)
[2023-10-31] MEDS: APIXABAN 5 MG TABLET PO SCH ×2 (08:46→21:18)
[2023-10-31] MEDS: VALSARTAN/SACUBITRIL 51/49 MG TAB PO SCH ×2 (08:46→21:19)
[2023-10-31] MEDS: POTASSIUM CHLORIDE 10 MEQ TABCR PO SCH ×2 (08:46→21:19)
[2023-10-31] MEDS: carvediloL 12.5 MG TAB PO SCH ×2 (08:46→18:05)
[2023-10-31] MEDS: CYANOCOBALAMIN (B-12) 500 MCG TABLET PO SCH (08:47)
[2023-10-31] MEDS: dexAMETHasone 6 MG in SYRINGE 0 ML IV SCH (08:47)
[2023-10-31] MEDS: FUROSEMIDE INJ 20 MG/2 ML VIAL IV SCH ×2 (08:48→18:05)
[2023-10-31] MEDS ORDERED: DEXAMETHASONE SOD INJ 4 MG/ML VIAL IV SCH (09:00)
[2023-10-31] MEDS: INSULIN ASPART PER UNIT CHARGE SC SCH ×4 (10:07→21:17)
--- NOTE | 2023-10-31 14:33 | XCELERA ---
[id number]
[2023-10-31] MEDS: REMDESIVIR 100 MG in SODIUM CHLORIDE 0.9% 230 ML IV SCH (21:18)
[2023-11-01] MEDS: INSULIN ASPART PER UNIT CHARGE SC SCH ×4 (07:30→21:10)
[2023-11-01] MEDS: carvediloL 12.5 MG TAB PO SCH ×2 (09:00→16:41)
[2023-11-01] MEDS: dexAMETHasone 6 MG in SYRINGE 0 ML IV SCH (09:00)
[2023-11-01] MEDS: FUROSEMIDE INJ 20 MG/2 ML VIAL IV SCH (09:01)
[2023-11-01] MEDS: CYANOCOBALAMIN (B-12) 500 MCG TABLET PO SCH (09:01)
[2023-11-01] MEDS: VALSARTAN/SACUBITRIL 51/49 MG TAB PO SCH ×2 (09:02→20:44)
[2023-11-01] MEDS: APIXABAN 5 MG TABLET PO SCH ×2 (09:02→20:44)
[2023-11-01] MEDS: SODIUM CHLORIDE 1 GM TABLET PO SCH ×2 (09:02→20:44)
[2023-11-01] MEDS: POTASSIUM CHLORIDE 10 MEQ TABCR PO SCH ×2 (09:02→21:08)
[2023-11-01 09:14] LABS: Hematocrit (blood only) 32.5 % (37.0-47.0); Immature Granulocytes # (auto) 0.02 K/uL (0.01-0.20); Immature Granulocytes % (auto) 0.4 %; Lymphocytes # (auto) 0.99 K/uL (1.20-3.40); Lymphocytes % (auto) 20.8 %; Mean Corpuscular Hemoglobin 29.9 pg (25.0-34.0); Mean Corpuscular Hgb Conc 33.8 g/dL (32.0-36.0); Mean Corpuscular Volume 88.3 fL (80.0-100.0); Mean Platelet Volume 9.6 fL (9.4-12.4); Monocytes # (auto) 0.71 K/uL (0.11-0.59); Monocytes % (auto) 14.9 %; Neutrophils # (auto) 3.04 K/uL (1.40-6.50); Neutrophils % (auto) 63.9 %; Platelet Count 155 K/uL (130-400); RDW Coefficient of Variation 14.1 % (11.5-14.5); RDW Standard Deviation 45.9 fL (36.4-46.3); Red Blood Count 3.68 M/uL (4.20-5.40); White Blood Count 4.76 K/ul (4.8-10.8)
[2023-11-01 09:29] LABS: BUN Creatinine Ratio 26.3 (10-20); Creatinine Clr Calc Pharmacy 61.2 ml/min; Est GFR (African American) 83.5 ml/min; Potassium 3.7 mmol/L (3.5-5.1)
--- NOTE | 2023-11-01 15:28 | Hospitalist Progress Note ---
Date of Service November 01, 2023 Assessment & Plan (1) Acute on chronic systolic CHF (congestive heart failure): Plan: Hypoxic respiratory failure due to COVID with superimposed acute on chronic heart failure with reduced ejection fraction much improved Acute on chronic HFrEF, hx nonischemic cardiomyopathy No dietary indiscretion, patient is COVID-positive, chest x-ray with evidence of pulmonary edema. EKG: Atrial sensed ventricular paced rhythm, QTc 528 Echo ejection fraction 30 to 35% global hypokinesis of the left ventricle akinesis of the proximal and inferior wall no new changes Patient received 20 mg of Lasix with brisk output, continue BID follow hyponatremia and renal function -Fluid restrict to 1500 cc/day Entresto/carvedilol continued. (2) COVID-19: Plan: COVID-19 Approximately 2-3 days of illness Dexamethasone/remdesicir started and continued -CXR is concerning for likely also confounded by acute on chronic systolic heart failure (3) CKD (chronic kidney disease), stage III: Plan: CKD, Chronic hyponatremia, fluid restriction Continue diuresis, fluid restriction 1500cc/d (4) Paroxysmal atrial fibrillation: Plan: A-fib Paced rhythm on admission Eliquis continued, carvedilol continued Last device interrogation 08/2023 with A-fib burden less than 0.1%, 89% biventricular paced, no significant change from prior Plan updated Admission and Anticipated Discharge Date Admission Date: October 30, 2023 Subjective Patient feels much improved feeling good her breathing is much better than when she arrived. She continues with a nonproductive cough Did have good urinary response to diuretic therapy Physical Exam Physical Exam: Patient conversant she is not dyspneic Card exam is regular with a systolic murmur Pulm exam has cleared, no wheezes Extremities are without significant edema trace if any Results & Data Results & Data Vital Signs (Past 12 Hours) Vital Signs Temp Pulse Resp BP Pulse Ox O2 Del Method 11/01/23 11:41 98.2 F 78 18 123/66 91 Room Air 11/01/23 09:00 Room Air 11/01/23 07:37 98.2 F 85 18 127/75 94 Room Air Laboratory Results Reviewed CBC reviewed chemistry PG Care Time/CCT Total # of Minutes Spent Total Time Spent with Patient: Total time spent is greater than 50% in coordination of care (as documented) at patient's floor/unit and/or counseling patient: Coding Level of Care Code 24419 SUB INP/OBS CARE 50MIN Diagnoses Acute on chronic systolic CHF (congestive heart failure) I50.23 COVID-19 U07.1 CKD (chronic kidney disease), stage III N18.30 Paroxysmal atrial fibrillation I48.0
[2023-11-01] MEDS ORDERED: FUROSEMIDE 20 MG TAB PO ONE (15:37)
[2023-11-01] MEDS: REMDESIVIR 100 MG in SODIUM CHLORIDE 0.9% 230 ML IV SCH (19:25)
[2023-11-02 07:30] LABS: Basophils # (auto) 0.01 K/uL (0.00-0.20); Basophils % (auto) 0.2 %; Hematocrit (blood only) 34.9 % (37.0-47.0); Hemoglobin 11.9 g/dl (12.0-16.0); Immature Granulocytes # (auto) 0.01 K/uL (0.01-0.20); Immature Granulocytes % (auto) 0.2 %; Lymphocytes # (auto) 1.19 K/uL (1.20-3.40); Mean Corpuscular Hemoglobin 29.7 pg (25.0-34.0); Mean Corpuscular Hgb Conc 34.1 g/dL (32.0-36.0); Mean Platelet Volume 9.7 fL (9.4-12.4); Monocytes # (auto) 0.71 K/uL (0.11-0.59); Monocytes % (auto) 13.7 %; Neutrophils # (auto) 3.26 K/uL (1.40-6.50); Neutrophils % (auto) 62.9 %; Platelet Count 154 K/uL (130-400); RDW Coefficient of Variation 13.8 % (11.5-14.5); RDW Standard Deviation 44.5 fL (36.4-46.3); Red Blood Count 4.01 M/uL (4.20-5.40); White Blood Count 5.18 K/ul (4.8-10.8)
[2023-11-02] MEDS: INSULIN ASPART PER UNIT CHARGE SC SCH ×2 (07:45→11:45)
[2023-11-02 07:53] LABS: BUN Creatinine Ratio 32.3 (10-20); Calcium 8.1 mg/dl (8.6-10.3); Creatinine Clr Calc Pharmacy 72.3 ml/min; Est GFR (African American) 94.5 ml/min; Est GFR (Non-African American) 81.5 ml/min; Potassium 3.7 mmol/L (3.5-5.1)
[2023-11-02] MEDS: CYANOCOBALAMIN (B-12) 500 MCG TABLET PO SCH (08:55)
[2023-11-02] MEDS: carvediloL 12.5 MG TAB PO SCH (08:55)
[2023-11-02] MEDS: POTASSIUM CHLORIDE 10 MEQ TABCR PO SCH (08:55)
[2023-11-02] MEDS: VALSARTAN/SACUBITRIL 51/49 MG TAB PO SCH (08:55)
[2023-11-02] MEDS: SODIUM CHLORIDE 1 GM TABLET PO SCH (08:56)
[2023-11-02] MEDS: APIXABAN 5 MG TABLET PO SCH (08:56)
[2023-11-02] MEDS ORDERED: FUROSEMIDE 40 MG TAB PO SCH (09:00)
[2023-11-02] MEDS: dexAMETHasone 6 MG in SYRINGE 0 ML IV SCH (10:00)
--- NOTE | 2023-11-02 14:47 | Discharge Summary ---
Date of Service November 02, 2023 Admission HPI Per Admitting Provider Kathrin Carrillo is an 82-year-old female with a past medical history of CKD 3, nonischemic cardiomyopathy with biventricular ICD, paroxysmal A-fib on Eliquis rate controlled with carvedilol, B12 deficiency, hypertension, stable hyponatremia on sodium chloride tablets and daily Lasix with fluid restriction who presented to the ER in respiratory distress with a O2 sat of 66% without lower extremity edema and with clear breath sounds on initial ER evaluation. POC ultrasound was performed by ER provider which showed bilateral B-lines, depressed EF, and trace pericardial effusion without evidence of tamponade, patient was placed on CPAP and given Lasix. BNP baseline not available, elevated on admission to 2184. VBG with respiratory acidosis 7.2 /. UA contaminated versus infected appearing with epithelial cell contamination but 4+ bacteria, leukocyte esterase, and nitrites. No white count is present. Creatinine is at baseline. Chest x-ray shows interstitial pulmonary edema and bilateral pleural effusions worsened compared to 03/2023. Patient is recommended for admission and treatment of acute on chronic heart failure with reduced ejection fraction. Patient reports that she has had shortness of breath and general fatigue with a nonproductive cough which has been worsening for about 3 to 4 days. Her had a upper respiratory illness 1 week ago which he thought might have been the flu but did not have any formal testing. She denies any change in diet, no salt indiscretion. She has not had chest pain at any point. No leg swelling or weight gain,. Feels her shortness of breath is persistent but does not get worse while laying flat/denies orthopnea. She has not had any syncope or presyncope. She denies abdominal pain. No nausea/vomiting/diarrhea. She received the first COVID-vaccine initially but no subsequent boosters. She does not use tobacco or alcohol. Full code. Medication allergies, medical history reviewed at bedside. No additional questions at time of admission Principal Diagnosis acute respiratory failure due to covid pneumonia and acute on chronic systolic heart failure Discharge Exam lungs are clear today Discharge Data Allergies Allergy/AdvReac Type Severity Reaction Status Date / Time duloxetine [From Cymbalta] Allergy Unknown Unknown Verified 09/17/23 11:13 Egg Derived Allergy Unknown Unknown Verified 09/17/23 11:13 ciprofloxacin AdvReac Severe Elaine Verified 09/17/23 11:13 Muscle aches and weakness epinephrine AdvReac Intermediate NERVOUS;INCREASED Verified 09/17/23 11:13 HR meperidine AdvReac Intermediate VOMITING Verified 09/17/23 11:13 nitrofurantoin AdvReac Intermediate upset Verified 09/17/23 11:13 [From Macrobid] stomach Consultations 10/30/23 15:39 ED Decision to Admit Stat Hospital Course (1) Acute on chronic systolic CHF (congestive heart failure): Hypoxic respiratory failure due to COVID with superimposed acute on chronic heart failure with reduced ejection fraction much improved Acute on chronic HFrEF, hx nonischemic cardiomyopathy No dietary indiscretion, patient is COVID-positive, chest x-ray with evidence of pulmonary edema. EKG: Atrial sensed ventricular paced rhythm, QTc 528 Echo ejection fraction 30 to 35% global hypokinesis of the left ventricle arjun nesis of the proximal and inferior wall no new changes Patient received 20 mg of Lasix with brisk output will be discharged on 20 mg daily and follow up with outpt provider, told to weigh daily and bring in weight sheet to doctor Entresto/carvedilol continued. (2) COVID-19: COVID-19 Approximately 2-3 days of illness Dexamethasone/remdesicir started and continued after dc for 10 d course -CXR was concerning for likely also confounded by acute on chronic systolic heart failure (3) CKD (chronic kidney disease), stage III: CKD, Chronic hyponatremia, Continue diuresis, (4) Paroxysmal atrial fibrillation: A-fib Paced rhythm on admission Eliquis continued, carvedilol continued Last device interrogation 08/2023 with A-fib burden less than 0.1%, 89% biventricular paced, no significant change from prior Plan updated Total Time Total Time Spent Total Time Spent (In Minutes): It required greater than 30 minutes to prepare this patient for discharge. Discharge Plan Discharge Items Patient Disposition: Home - Self-Care Reason For Visit: RESP FAILURE, ACUTE CHF + COVID Discharge Diagnosis: covid pneumonia acute on chronic systolic heart failure Activity: Per Instructions section Non-emergency contact: Primary Care Provider Call non-emergency contact if: your symptoms worsen Follow-up/Referrals: Kathy Arriola DO [Primary Care Provider] - Diet: Low Sodium (2gm) Addtl Attending Provider Instructions: quarantine yourself for 10 days from your first test or first symptoms, and if at the 10th day you have no symptoms the you can come off quarantine but use common sense precautions. Quarantine means attempting to stay away from people who have not had an active covid infection in the past, and if you have to be around others to wear a mask even if you are indoors, do not share a room to sleep in with others until you are out of quarantine. If you still have symptoms at the 10th day, continue to quarantine until you are symptom free for 48 hours Addtl [employer] Provider Instructions: Call 911 and go to the Emergency Room if: * You have tightness or pain in your chest that does not go away with rest or Nitroglycerin * You are very short of breath even with rest Call your doctor if any of the following symptoms or problems start or get worse: * Shortness of breath or difficulty breathing * Wake up at night short of breath * Chest pain * Cough * Swelling of your hands, fee, or legs * More fatigued or tired with your normal activity * Palpitations - sudden fast heart beats WEIGHT * Weigh yourself every morning after using the bathroom. * Use the same scale. * Wear the same amount of clothing. * Write your weight down on your chart. * Call your doctor if you gain more than 2-3 pounds in 1-2 days. MEDICATIONS * Use this discharge instruction sheet for instructions. * Take your medications at the time your doctor ordered. * Do not skip a dose of your medicines. * If you miss a dose of medicine, take as soon as possible, but DO NOT DOUBLE A DOSE. * Read your medicine information when you get home. * Know all of the side effects of your medicine. * Call your doctor's office if you have any side effects. * Be sure all of your doctors know what medicine and herbs you take (including cold, flu, and herbal medicine). * Pain Medicine: If you do not get relief from your pain, please call your doctor for help. Take the following with you to your follow-up doctor appointments: * Weight Chart * Medication List * List of questions Do not drink excessive alcohol, beer or wine. Pending Studies at Discharge: No Stand-Alone Forms: [employer], Smoking Cessation Medications and DC Order Prescriptions: New dexamethasone 6 mg tablet 6 mg PO DAILY Qty: 7 0RF Continued Entresto 49-51 mg tablet 1 tab PO BID Qty: 180 3RF Eliquis 5 mg tablet 5 mg PO BID Qty: 180 3RF carvedilol 12.5 mg tablet 12.5 mg PO BID Qty: 180 3RF Rx Instructions: must administer with a meal/food sodium chloride 1,000 mg tablet,soluble 500 mg PO BID acetaminophen [Tylenol Extra Strength] 500 mg tablet 500 - 1,000 mg PO Q4H PRN (Reason: Pain) ondansetron 4 mg tablet,disintegrating 4 mg PO Q6H PRN (Reason: nausea and vomiting) Qty: 10 0RF albuterol sulfate [Ventolin HFA] 90 mcg/actuation HFA aerosol inhaler 2 puff inhalation Q4H PRN (Reason: cough/shortness of breath/wheezing) Qty: 8.5 0RF Rx Instructions: use with plastic spacer device. cyanocobalamin (vitamin B-12) 1,000 mcg tablet 1,000 mcg PO DAILY Qty: 90 2RF Rx Instructions: purchase [id number] Changed furosemide [Lasix] 20 mg tablet 20 mg PO DAILY Qty: 90 3RF Rx Instructions: May take an additional 20 mg as needed for weight gain, swelling. Discharge Orders: Discharge Order (Routine); Ordered 11/02/23 Ordered By: Rahat Guzman Admission Data Admit Date/Time: 10/30/23 16:19 Attending Provider: Jairon Kelly Admit Provider: Jairon Kelly Primary Care Provider: Kathy Arriola Other Providers: Jairon Kelly Other Interventions: Discharge Summary Assessment (RN) Last Done: 11/02/23 13:00 Coding Level of Care Code 75496 INP/OBS DISCH >30 MIN Diagnoses Acute on chronic systolic CHF (congestive heart failure) I50.23 COVID-19 U07.1 CKD (chronic kidney disease), stage III N18.30 Paroxysmal atrial fibrillation I48.0
== END 2023-11-02 14:45 | disposition home or self-care (01) | DRG 177 ==
LOC: ED 14:14 → EDINP 16:19 → 2E 10-31 18:51

== ENCOUNTER 2023-12-17 13:08 | Inpatient (IN) ==
--- NOTE | 2023-12-17 13:28 | Emergency Department Note ---
Impression & Plan Encephalopathy, MARIIA (acute kidney injury), Acute hypotension, Acute dehydration ED Provider Note NAME: DREW SUTTON AGE: 83 SEX: F : 1940 ARRIVES VIA: Ambulance INFORMANT: Patient, ED PROVIDER(S): Braulio Faria MD CHIEF COMPLAINT: Decreased responsiveness MEDICAL DECISION MAKING: Patient has a GCS of 9. Opens eyes spontaneously does not make any intelligible sounds but does tend to withdraw from painful stimuli. Decision to intubate deferred at this time as the patient is maintaining her airway and saturations are appropriate to patient is spontaneously breathing on her abdomen taking oxygen saturations. Patient was made a stroke alert given that the patient was not following commands appropriately patient not a TNK candidate as the patient is on Eliquis. Last known well was reportedly at 930 after nursing did call patient's care facility the patient did receive 400 of fluids chest x-ray does not show any obvious volume overload lower extremities appear normal. Patient was ordered additional IV fluids given the patient's hypotension. Patient has a normal white count H&H and platelet count. Kidney function with MARIIA baseline creatinine of 0.8 today is 2. ABG pH is 731 with a pCO2 of 51 slight retention noted. Lactate of 2.2. Troponin 45. CT head and CT angiography of the head and neck do not show any significant stenosis and no obvious bleeding. Patient was ordered Keppra given the possibility of seizure as the patient is less responsive. Patient did receive empiric antibiotics. Patient has not had any worsening of any airway symptoms and is still maintaining her airway without any difficulty with breathing or hypoxia. The patient's VBG does not show significant hypercarbia. I did discuss this with the on-call hospitalist who is in a current agreement with plan of care. I did speak the on-call hospitalist Dr. Haynes and the patient was admitted to medicine service. Critical Care: I have personally spent 40 minutes of critical care time in direct management of this patient. This includes bedside care, interpretation of diagnostic studies, and testing, discussion with consultants, patient, and family members, and other require inpatient management activities. This 40 minutes is in excess of all separately billable procedures. Discussion w/ other healthcare providers: Dr. Haynes inpatient medicine service Prior /Outside records reviewed: I did review her recent discharge summary from Dr. Guzman from November 02, 2023. The patient has known history of CKD nonischemic cardiomyopathy biventricular ICD paroxysmal A-fib on Eliquis B12 deficiency hypertension hyponatremia that presented due to concern for low oxygen saturation lower extremity edema. Patient was thought to have at that time acute on chronic systolic CHF and hypoxic respiratory failure secondary to COVID. Differential diagnosis: Infection, dehydration, metabolic abnormality, hypo/hyperglycemia, electrolyte imbalance, anemia, UTI, pneumonia, thyroid dysfunction among others were considered. Diagnostics, as interpreted by me: ECG: A-fib, rate of 94, wide QRS, normal axis no ST elevations occasionally paced rhythm. Cardiac monitoring: An order was placed for continuous cardiac monitoring. The monitor shows a rate of 92 with sinus rhythm. Patient was placed on pulse oximetry Medical decision rules: None Imaging studies: I informally interpreted the patient's chest x-ray does not show obvious pneumonia or pneumothorax with formal report to follow. I informally interpreted the patient's CT head which does not show obvious ICH with formal report to follow HPI: History somewhat limited given the patient's acuity and altered mental status but does arrive from heart side with a last known well at 9:30 AM. The patient reportedly was found of her bed not conversational and not moving with snoring respirations. The patient did not have a readable blood pressure. EMS arrived blood sugar was in the 200s patient was given IV fluids and seemed to have some improvement in some of her symptoms as she was opening her eyes but still not conversational. The patient did have a nasal trumpet that was placed prior to arrival. Patient's blood pressure for EMS after fluids was in the 100s. PAST MEDICAL HISTORY: See Below PAST SURGICAL HISTORY: See Below SOCIAL HISTORY: See Below HOME MEDICATIONS: See Below ALLERGIES: See Below VITALS: See Below PHYSICAL EXAMINATION: GENERAL: NAD, non-toxic. EYE EXAM: Normal conjunctiva. PERRL, no anisocoria and EOM's grossly intact w/o pain. OROPHARYNX: Moist mucus membranes, grossly normal dentition. NECK: Trachea midline, no stridor. Supple, no nuchal rigidity, no adenopathy, non-tender. No signs of meningismus. FROM of the neck with good chin to chest and neck extension. LUNGS: Clear to auscultation. Normal chest wall mechanics. HEART: NSR, no MRG. ABDOMEN: Abdomen soft, non-tender, no masses, no rebound or guarding. BACK: No CVA TTP. SKIN: No rashes and no bruising. UPPER EXTREMITIES: Upper extremities are grossly normal. LOWER EXTREMITIES: Grossly normal, no edema. NEURO EXAM: A&O x3, cranial nerves II-XII grossly intact, normal speech, moves all 4 extremities. Past Med/Surg History Medical History Lumbar disc disease Restless legs Arthritis of knee Nasal septal deviation Hypertrophy of both inferior nasal turbinates Allergic rhinitis Acute bronchitis History of varicose veins Vitamin D deficiency Urinary frequency Snoring Pre-diabetes Polyneuropathy Paroxysmal ventricular tachycardia Pain of finger of left hand Malignant neoplasm of breast LBBB (left bundle branch block) Joint pain Impaired glucose metabolism Goiter Generalized osteoarthritis of multiple sites Fibromyalgia Female stress incontinence Fatigue Encounter for routine gynecological examination Dyspnea on exertion Chronic sinusitis Chronic maxillary sinusitis Cardiomyopathy, nonischemic Biventricular ICD (implantable cardioverter-defibrillator) in place Acute hypersomnolence disorder Pacemaker HTN (hypertension) No pertinent family history Surgical History History of vaginal hysterectomy H/O umbilical hernia repair History of lumpectomy left breast Hx of colonoscopy History of cholecystectomy History of breast biopsy Family History Mother Breast cancer Hypertension Cancer Gallbladder disease Brother Hypertension Diabetes Other No pertinent family history Denies family history of Ovarian cancer Prostate cancer Myocardial infarction Colorectal cancer Social History Smoking Status: Never smoker Age Started Using Tobacco: 18; Age Quit Using Tobacco: 23; Second Hand Exposure: No; Hx Alcohol Use: No Hx Substance Use: No Preferred Language: [place] Communication Ability: Effective Visual Impairment: No Limitations Hearing Ability: Hard of Hearing Manual Lathe Machinist Required: No Beliefs That Will Affect Care: Evangelical marital status: Current Living Situation: [facility] Current Living Situation Comment: [facility] 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 Feels Safe at Home: Yes Safety Concerns: Feels Safe At This Time Childhood Exposure to Second-Hand Smoke: No Diet: regular Diet Comment: regular caffeine: Yes during the past year weight has: other Dental Care, Regularly: Yes Physical Activity Frequency: Does not Exercise Physical Activity Frequency Comment: limited by physical condition Seatbelt Use: always Sunscreen Use: Yes Assistive Devices: Cane Allergies Allergies Allergy/AdvReac Type Severity Reaction Status Date / Time duloxetine [From Cymbalta] Allergy Unknown Unknown Verified 12/17/23 15:11 Egg Derived Allergy Unknown Unknown Verified 12/17/23 15:11 norepinephrine Allergy Unknown ON EMBASSY Verified 12/17/23 15:11 OF HEARTHSIDE MED LIST ciprofloxacin AdvReac Severe Elaine Verified 12/17/23 15:11 Muscle aches and weakness epinephrine AdvReac Intermediate NERVOUS;INCREASED Verified 12/17/23 15:11 HR meperidine AdvReac Intermediate VOMITING Verified 12/17/23 15:11 nitrofurantoin AdvReac Intermediate upset Verified 12/17/23 15:11 [From Macrobid] stomach Home Meds Home Medications Medication Instructions Recorded Confirmed sodium chloride 1,000 mg soluble 2,000 mg PO TID 05/22/23 12/17/23 tablet acetaminophen 325 mg tablet 650 mg PO Q6H PRN PAIN/FEVER >101 12/17/23 12/17/23 (Tylenol) carvedilol 25 mg tablet 25 mg PO BID 12/17/23 12/17/23 cholecalciferol (vitamin D3) 25 25 mcg PO DAILY 12/17/23 12/17/23 mcg (1,000 unit) capsule (Vitamin D3) furosemide 20 mg tablet (Lasix) 20 mg PO BID edema 12/17/23 12/17/23 losartan 25 mg tablet 25 mg PO BID 12/17/23 12/17/23 multivitamin with minerals 1 tab PO DAILY 12/17/23 12/17/23 potassium chloride 20 mEq 40 meq PO DAILY 12/17/23 12/17/23 tablet,extended release vitamin E 268 mg (400 unit) capsule 268 mg PO 3XWK 12/17/23 12/17/23 Previous Rx's Medication Instructions Recorded apixaban 5 mg tablet (Eliquis) 5 mg PO BID #180 tabs 09/24/23 Results & Data (ED) Vital Signs Vital Signs - 24 hr 12/17/23 13:12 12/17/23 13:58 Temperature 35.9 C L Temperature Source Rectal Pulse Rate 87 96 H Respiratory Rate 15 Blood Pressure 106/64 Blood Pressure Mean 78 Pulse Oximetry 100 Oxygen Delivery Method Room Air Sepsis Recent Fever Within 48 Hours No Sepsis New/Unexplained Change in Mental Status No Sepsis Action Taken by Nursing No Action Required Home Medications Current Medication List: was personally reviewed by me Laboratory Data Attestation: I reviewed the patient's lab results. 12/19/23 06:11 12/19/23 06:11 Lab Results 12/17/23 12/17/23 Range/Units 13:15 13:42 WBC 9.72 (4.8-10.8) K/ul RBC 4.04 L (4.20-5.40) M/uL Hgb 12.9 (12.0-16.0) g/dl Hct 38.3 (37.0-47.0) % MCV 94.8 (80.0-100.0) fL MCH 31.9 (25.0-34.0) pg MCHC 33.7 (32.0-36.0) g/dL RDW Std Deviation 51.9 H (36.4-46.3) fL RDW Coeff of Morgan 15.0 H (11.5-14.5) % Plt Count 212 (130-400) K/uL MPV 10.9 (9.4-12.4) fL Immature Gran % (Auto) 0.6 % Neut % (Auto) 83.9 % Lymph % (Auto) 10.3 % Harlan % (Auto) 4.4 % Eos % (Auto) 0.4 % Baso % (Auto) 0.4 % Neut # (Auto) 8.15 H (1.40-6.50) K/uL Lymph # (Auto) 1.00 L (1.20-3.40) K/uL Harlan # (Auto) 0.43 (0.11-0.59) K/uL Eos # (Auto) 0.04 (0.00-0.50) K/uL Baso # (Auto) 0.04 (0.00-0.20) K/uL Immature Gran # (Auto) 0.06 (0.01-0.20) K/uL ESR 27 (0-30) mm/hr PT 13.5 H (9.0-12.0) Seconds INR 1.2 H (0.9-1.1) APTT 32 H (21-31) Seconds PTT Ratio 1.1 VBG pH 7.31 L (7.36-7.41) VBG pCO2 51 H (38-50) mmHg VBG pO2 25 mmHg VBG HCO3 26 mmol/L VBG O2 Saturation < 60.0 % VBG Base Excess -1.0 mEq/L Sodium 143 (136-145) mmol/L Potassium 4.5 (3.5-5.1) mmol/L Chloride 106 (98-107) mmol/L Carbon Dioxide 26 (21-32) mmol/L Anion Gap 11 (3-11) BUN 43 H (6-23) mg/dl Creatinine 2.02 H (0.6-1.2) mg/dl Est Cr Clr Drug Dosing 23.6 ml/min Est GFR ( Amer) 25.4 ml/min Est GFR (Non-Af Amer) 21.9 ml/min BUN/Creatinine Ratio 21.3 H (10-20) Glucose 171 H (70-99(Fasting)) mg/dl Lactate 2.2 H* (0.4-2.0) mmol/L Calcium 9.1 (8.6-10.3) mg/dl Magnesium 2.0 (1.7-2.4) mg/dl Total Bilirubin 1.4 H (0.2-1.0) mg/dl AST 29 (13-39) U/L ALT 21 (7-52) U/L Alkaline Phosphatase 60 (34-104) U/L Troponin I High Sens 45.1 H (0-14) pg/ml C-Reactive Protein 1.22 H (0-0.5) mg/dl Total Protein 6.4 (6.0-8.3) gm/dl Albumin 3.4 (3.4-5.0) gm/dl Globulin 3.0 (2.5-4.0) gm/dl Albumin/Globulin Ratio 1.1 (0.9-2) Procalcitonin 0.09 (0-0.5) ng/ml Administered Medications Piperacillin Sod/Tazobactam (Sod 4.5 gm/ Dextrose) 100 mls @ 25 mls/hr IV Q8H [facility]; Protocol Stop: 12/27/23 19:59 Last Admin: 12/19/23 13:27 Dose: 25 mls/hr Documented By: Infusion: 12/19/23 07:30 Dose: Infused Documented By: Admin: 12/19/23 03:26 Dose: 25 mls/hr Documented By: AKBonita Infusion: 12/19/23 00:10 Dose: Infused Documented By: Admin: 12/18/23 20:10 Dose: 25 mls/hr Documented By: Infusion: 12/18/23 15:50 Dose: Infused Documented By: Admin: 12/18/23 11:37 Dose: 25 mls/hr Documented By: Infusion: 12/18/23 09:10 Dose: Infused Documented By: Infusion: 12/18/23 05:36 Dose: 25 mls/hr Documented By: Infusion: 12/18/23 04:37 Dose: 0 mls/hr Documented By: Admin: 12/18/23 04:10 Dose: 25 mls/hr Documented By: Infusion: 12/17/23 23:17 Dose: Infused Documented By: Admin: 12/17/23 19:17 Dose: 25 mls/hr Documented By: HOLLEY Thiamine HCl 500 mg/ Sodium (Chloride) 55 mls @ 110 mls/hr IV Q8H ANIBAL Stop: 12/19/23 15:00 Last Infusion: 12/19/23 06:57 Dose: Infused Documented By: AKBonita Admin: 12/19/23 06:06 Dose: 110 mls/hr Documented By: AKBonita Infusion: 12/18/23 21:36 Dose: Infused Documented By: Admin: 12/18/23 21:06 Dose: 110 mls/hr Documented By: Infusion: 12/18/23 13:23 Dose: Infused Documented By: Admin: 12/18/23 12:42 Dose: 110 mls/hr Documented By: Infusion: 12/18/23 06:15 Dose: Infused Documented By: Admin: 12/18/23 05:32 Dose: 110 mls/hr Documented By: Infusion: 12/17/23 23:03 Dose: Infused Documented By: Admin: 12/17/23 22:37 Dose: 210 mls/hr Documented By: SAMANTHA Lactated Ringer's (Lr) 1,000 mls @ 80 mls/hr IV .[id number] ANIBAL Stop: 12/20/23 01:29 Last Infusion: 12/19/23 13:27 Dose: Infused Documented By: Admin: 12/19/23 00:55 Dose: 80 mls/hr Documented By: Infusion: 12/19/23 00:55 Dose: Infused Documented By: Admin: 12/18/23 12:42 Dose: 80 mls/hr Documented By: JOSE Discontinued Medications Piperacillin Sod/Tazobactam Sod (Zosyn) 4.5 gm in 100 mls @ 200 mls/hr IV NOW ONE Stop: 12/17/23 13:53 Last Infusion: 12/17/23 14:55 Dose: Infused Documented By: Admin: 12/17/23 13:52 Dose: 200 mls/hr Documented By: CRIS Sodium Chloride (Nss) 500 mls @ 999 mls/hr IV .Q31M ONE Stop: 12/17/23 14:20 Last Infusion: 12/17/23 14:55 Dose: Infused Documented By: Admin: 12/17/23 13:52 Dose: 999 mls/hr Documented By: CRIS Sodium Chloride (Nss) 500 mls @ 999 mls/hr IV .Q31M ONE Stop: 12/17/23 14:38 Last Admin: 12/17/23 15:17 Dose: Not Given Documented By: ANA Lactated Ringer's (Lr) 500 mls @ 999 mls/hr IV .Q31M ONE Stop: 12/17/23 16:01 Last Infusion: 12/17/23 18:07 Dose: Infused Documented By: Admin: 12/17/23 16:20 Dose: 999 mls/hr Documented By: ANA Lactated Ringer's (Lr) 500 mls @ 999 mls/hr IV .Q31M ONE Stop: 12/18/23 01:47 Last Infusion: 12/18/23 02:23 Dose: Infused Documented By: Admin: 12/18/23 01:48 Dose: 999 mls/hr Documented By: SAMANTHA Ioversol (Optiray 320 125ml) 112 ml IV ONCE ONE Stop: 12/17/23 13:30 Last Admin: 12/17/23 13:30 Dose: 112 ml Documented By: NOAH Levetiracetam (Levetiracetam 500 Mg/5 Ml Vial) 2,000 mg IV NOW STA Stop: 12/17/23 13:25 Last Admin: 12/17/23 13:52 Dose: 2,000 mg Documented By: CRIS Miscellaneous (Rapid Sequence Induction Bag) Confirm Administered Dose 1 each N/A .sendwithus-Agavideo ONE Stop: 12/17/23 13:34 Last Admin: 12/17/23 15:06 Dose: Not Given Documented By: ANA Imaging Data Radiologist's Impression: Head CT 12/17/23 13:[address] DOSE: HISTORY: Altered mental status. neuro deficit, acute stroke suspected TECHNIQUE: Multiaxial CT images of the head were performed without the use of intravenous contrast. Automated exposure control was utilized for this study. A dose lowering technique was utilized adhering to the principles of ALARA. Comparison: Head CT 04/02/2023. Findings: The paranasal sinuses and mastoid air cells are clear. The calvarium and skull base are intact. There is no mass, hematoma, midline shift, acute infarct. White matter hypodensity is nonspecific but suggestive of advanced microvascular ischemic change. The ventricles and sulci demonstrate mild age- related involutional changes. Mild motion artifact. Impression: Mild motion artifact. No definite acute intracranial abnormality. ACT 112: Negative or not required by law. Electronically signed by: Praneeth Allison M.D. 12/17/2023 1:50 PM Head CTA 12/17/23 13:24 CT angio head w con CLINICAL HISTORY: 83 years-old Female with neuro deficit, acute stroke suspected. Acutely altered mental status COMPARISON STUDY: Head CT of same day, CT head 04/02/2023 TECHNIQUE: Following the IV administration of 112 cc of Optiray, CT angiogram of the brain was performed from the skull base to the vertex. Images are reviewed in the axial, sagittal, and coronal planes. 3-D MIPS images are created and assessed. IV contrast was administered without complication. All measurements were obtained according to NASCET criteria. A dose lowering technique was utilized adhering to the principles of ALARA. FINDINGS: CT ANGIOGRAM OF THE BRAIN: The imaged bilateral internal carotid arteries are patent at least moderate atherosclerosis. The bilateral anterior and middle cerebral arteries are also patent. Developmentally diminutive right A1 segment. The vertebrobasilar system and posterior cerebral arteries are widely patent. origin of the posterior cerebral arteries. There is no aneurysm, high-grade stenosis, or proximal branch occlusion identified. Dural sinuses appear patent. Prior bilateral lens repair. Streak artifact from dental amalgam hardware. Small right mastoid effusion. Rightward bowing and spurring of the nasal septum. Mild mucosal thickening of the paranasal sinuses. IMPRESSION: Unremarkable CTA of the head. ACT 112: Negative or not required by law. The above report was generated using voice recognition software. It may contain grammatical, syntax or spelling errors. Electronically signed by: Larry Ahn M.D. 12/17/2023 2:02 PM Neck CTA 12/17/23 13:24 CT angio neck with con CLINICAL HISTORY: neuro deficit, acute stroke suspected TECHNIQUE: CT angiography of the neck was performed following intravenous administration of iodinated contrast. Coronal and sagittal MIPS were obtained from the axial data set and were submitted for review. Automated dose lowering techniques and/or adjustment according to patient size were utilized for this examination. All measurements were calculated based on NASCET criteria. CT DOSE: 1268.66 mGy.cm Comparison: Comparison is made to CTA neck 04/02/2023 FINDINGS: Biapical emphysema is seen. CTA Neck: A 3 vessel aortic arch is shown. Atherosclerotic plaque is present in the aortic arch and at the origin of the great vessels. Significant carotid bulb atherosclerosis bilaterally without hemodynamically significant stenosis. Tortuous course of the left internal carotid artery noted. The left vertebral artery is dominant. IMPRESSION: No occlusion, hemodynamically significant stenosis, or dissection in the major cervical arteries. Assessment of stenosis of the internal carotid arteries is based on NASCET criteria. ACT 112: Negative or not required by law. Electronically signed by: Nathan Dupree M.D. 12/17/2023 1:45 PM [place], [place] [phone] XRay Report Patient: DREW SUTTON Admit Date: 12/17/23 MR#: [id number] Address1: [address] [place] [address] Acct ID:[id number] Address2: Date: 1940 [facility] Zip: [place] [address] Age: 83 Location: ED Sex: F Room/Bed: Att Phy: Diagnosis: DECREESED MENTAL STATUS Alia Phy: Agustin Mcmahon M.D. Service Date: 12/17/23 Fam Phy: Interpreting Phy: Larry AhnAdmit Phy: Ordering Phy: Braulio Faria MD cc: ~ XR chest 1V portable HISTORY: 83 years-old Female AMS acutely altered mental status COMPARISON: 10/30/2023 TECHNIQUE: AP view the chest FINDINGS: Cardiac silhouette is enlarged. Left subclavian pacer/AICD. Atherosclerosis of the aorta. No pneumothorax, pleural effusion or airspace consolidation. Cholecystectomy. Bones appear grossly intact. IMPRESSION: Cardiomegaly without acute process. ACT 112: Negative or not required by law. The above report was generated using voice recognition software. It may contain grammatical, syntax or spelling errors. Electronically signed by: Larry Ahn M.D. 12/17/2023 2:27 PM Dictated: 12/17/23 142 Transcribed: 12/17/231426 Discharge Plan Visit Data Chief Complaint: Altered Mental Status Stated Complaint: DECREESED MENTAL STATUS ED Provider: Braulio Faria Discharge Problem: Encephalopathy, MARIIA (acute kidney injury), Acute hypotension, Acute dehydration Patient Disposition: Admitted As Inpatient Discharge Instructions Interventions: ED Discharge Assessment Last Done: 12/17/23 18:28
[2023-12-17] MEDS: OPTIRAY 320 125ml IV ONE (13:30)
[2023-12-17 13:34] LABS: Basophils # (auto) 0.04 K/uL (0.00-0.20); Basophils % (auto) 0.4 %; Eosinophils # (auto) 0.04 K/uL (0.00-0.50); Eosinophils % (auto) 0.4 %; Hematocrit (blood only) 38.3 % (37.0-47.0); Hemoglobin 12.9 g/dl (12.0-16.0); Immature Granulocytes # (auto) 0.06 K/uL (0.01-0.20); Immature Granulocytes % (auto) 0.6 %; Lymphocytes % (auto) 10.3 %; Mean Corpuscular Hemoglobin 31.9 pg (25.0-34.0); Mean Corpuscular Hgb Conc 33.7 g/dL (32.0-36.0); Mean Corpuscular Volume 94.8 fL (80.0-100.0); Mean Platelet Volume 10.9 fL (9.4-12.4); Monocytes # (auto) 0.43 K/uL (0.11-0.59); Monocytes % (auto) 4.4 %; Neutrophils # (auto) 8.15 K/uL (1.40-6.50); Neutrophils % (auto) 83.9 %; Platelet Count 212 K/uL (130-400); RDW Standard Deviation 51.9 fL (36.4-46.3); Red Blood Count 4.04 M/uL (4.20-5.40); White Blood Count 9.72 K/ul (4.8-10.8)
[2023-12-17 13:47] LABS: INR 1.2 (0.9-1.1); Partial Thromboplastin Ratio 1.1; Partial Thromboplastin Time 32 Seconds (21-31); Prothrombin Time 13.5 Seconds (9.0-12.0)
--- NOTE | 2023-12-17 13:47 | CT Scan Report ---
CT angio neck with con CLINICAL HISTORY: neuro deficit, acute stroke suspected TECHNIQUE: CT angiography of the neck was performed following intravenous administration of iodinated contrast. Coronal and sagittal MIPS were obtained from the axial data set and were submitted for rev iew. Automated dose lowering techniques and/or adjustment according to patient size were utilized fo r this examination. All measurements were calculated based on NASCET criteria. CT DOSE: 1268.66 mGy.cm Comparison: Comparison is made to CTA neck 04/02/2023 FINDINGS: Biapical emphysema is seen. CTA Neck: A 3 vessel aortic arch is shown. Atherosclerotic plaque is present in the aortic arch and at the origin of the great vessels. Significant carotid bulb atherosclerosis bilaterally without hemo dynamically significant stenosis. Tortuous course of the left internal carotid artery noted. The left vertebral artery is dominant. IMPRESSION: No occlusion, hemodynamically significant stenosis, or dissection in the major cervical arteries. Assessment of stenosis of the internal carotid arteries is based on NASCET criteria. ACT 112: Negative or not required by law. Electronically signed by: Nathan Dupree M.D. 12/17/2023 1:45 PM
--- NOTE | 2023-12-17 13:51 | CT Scan Report ---
HEAD CT NONCONTRAST CT DOSE: HISTORY: Altered mental status. neuro deficit, acute stroke suspected TECHNIQUE: Multiaxial CT images of the head were performed without the use of intravenous contrast. A utomated exposure control was utilized for this study. A dose lowering technique was utilized adheri ng to the principles of ALARA. Comparison: Head CT 04/02/2023. Findings: The paranasal sinuses and mastoid air cells are clear. The calvarium and skull base are int act. There is no mass, hematoma, midline shift, acute infarct. White matter hypodensity is nonspecifi c but suggestive of advanced microvascular ischemic change. The ventricles and sulci demonstrate mild age-related involutional changes. Mild motion artifact. Impression: Mild motion artifact. No definite acute intracranial abnormality. ACT 112: Negative or not required by law. Electronically signed by: Praneeth Allison M.D. 12/17/2023 1:50 PM
[2023-12-17] MEDS: levETIRAcetam 500 MG/5 ML VIAL IV STA (13:52)
[2023-12-17] MEDS: SODIUM CHLORIDE 0.9% 500 ML IV ONE ×2 (13:52→15:17)
[2023-12-17] MEDS: PIPERACILLIN/TAZOBACTAM 4.5 GM/100 ML BAG IV ONE (13:52)
[2023-12-17 13:56] LABS: Albumin Globulin Ratio 1.1 (0.9-2); Albumin Level 3.4 gm/dl (3.4-5.0); BUN Creatinine Ratio 21.3 (10-20); Bilirubin,Total 1.4 mg/dl (0.2-1.0); Calcium 9.1 mg/dl (8.6-10.3); Creatinine Clr Calc Pharmacy 23.6 ml/min; Est GFR (African American) 25.4 ml/min; Est GFR (Non-African American) 21.9 ml/min; Potassium 4.5 mmol/L (3.5-5.1); Total Protein 6.4 gm/dl (6.0-8.3)
[2023-12-17 13:57] LABS: HCO3 VBG 26 mmol/L; Oxygen Saturation VBG < 60.0 %; PCO2 VBG 51 mmHg (38-50); PO2 VBG 25 mmHg; pH VBG 7.31 (7.36-7.41)
[2023-12-17 14:02] LABS: Troponin I High Sensitivity 45.1 pg/ml (0-14)
--- NOTE | 2023-12-17 14:04 | CT Scan Report ---
CT angio head w con CLINICAL HISTORY: 83 years-old Female with neuro deficit, acute stroke suspected. Acutely altered mental status COMPARISON STUDY: Head CT of same day, CT head 04/02/2023 TECHNIQUE: Following the IV administration of 112 cc of Optiray, CT angiogram of the brain was perfor med from the skull base to the vertex. Images are reviewed in the axial, sagittal, and coronal planes . 3-D MIPS images are created and assessed. IV contrast was administered without complication. All me asurements were obtained according to NASCET criteria. A dose lowering technique was utilized adherin g to the principles of ALARA. FINDINGS: CT ANGIOGRAM OF THE BRAIN: The imaged bilateral internal carotid arteries are patent at least moderate atherosclerosis. The bila teral anterior and middle cerebral arteries are also patent. Developmentally diminutive right A1 segm ent. The vertebrobasilar system and posterior cerebral arteries are widely patent. origin of th e posterior cerebral arteries. There is no aneurysm, high-grade stenosis, or proximal branch occlusio n identified. Dural sinuses appear patent. Prior bilateral lens repair. Streak artifact from dental amalgam hardware. Small right mastoid effusi on. Rightward bowing and spurring of the nasal septum. Mild mucosal thickening of the paranasal sinus es. IMPRESSION: Unremarkable CTA of the head. ACT 112: Negative or not required by law. The above report was generated using voice recognition software. It may contain grammatical, syntax o r spelling errors. Electronically signed by: Larry Ahn M.D. 12/17/2023 2:02 PM
--- NOTE | 2023-12-17 14:21 | Electrocardiogram Report ---
Test Reason : Blood Pressure : / mmHG Vent. Rate : 094 BPM Atrial Rate : 000 BPM P-R Int : 000 ms QRS Dur : 158 ms QT Int : 504 ms P-R-T Axes : 000 258 107 degrees QTc Int : 630 ms Likely atrial fibrillation with demand pacing and fusion beats Right superior axis deviation Non-specific intra-ventricular conduction block Abnormal ECG When compared with ECG of 30-OCT-2023 14:32, Vent. rate has decreased BY 6 BPM Confirmed by Maurisio Reynolds ([id number]) on 12/17/2023 2:20:40 PM Referred By: Confirmed By:Rocco Reynolds
--- NOTE | 2023-12-17 14:28 | XRay Report ---
XR chest 1V portable HISTORY: 83 years-old Female AMS acutely altered mental status COMPARISON: 10/30/2023 TECHNIQUE: AP view the chest FINDINGS: Cardiac silhouette is enlarged. Left subclavian pacer/AICD. Atherosclerosis of the aorta. No pneumoth orax, pleural effusion or airspace consolidation. Cholecystectomy. Bones appear grossly intact. IMPRESSION: Cardiomegaly without acute process. ACT 112: Negative or not required by law. The above report was generated using voice recognition software. It may contain grammatical, syntax o r spelling errors. Electronically signed by: Larry Ahn M.D. 12/17/2023 2:27 PM
--- NOTE | 2023-12-17 14:39 | History & Physical Report ---
Date of Service December 17, 2023 Assessment & Plan (1) Encephalopathy due to infection: Plan: Other episodes of unexplained loss of consciousness in the past (March 2023 admission ultimately suspected to be orthostasis +/- UTI). ICD/pacemaker MRI incompatible. Suspect this time due to hypotension in setting of dehydration and UTI/diverticulitis NPO at current time (2) Acute diverticulitis: Plan: Noted on CT. NPO. IV Zosyn. Given recent CHF exacerbation will defer ongoing IV fluids overnight unless hypotensive recommend IV fluid boluses as needed with review of her respiratory status. (3) Acute UTI: Plan: Follow up blood and urine culture IV Zosyn (4) MARIIA (acute kidney injury): Plan: No post obstructive cause on CT Appears hypovolemic and in setting of hypotension. Hold all anti-hypertensives at this time - Lasix, losartan/Entresto and carvedilol IV fluids resuscitation given in ER. Will defer ongoing maintenance fluids overnight given Hx CHF. If develops a. fib RVR overnight may tolerate IV doses of metoprolol. (5) Thiamine deficiency: Plan: Noted on prior labs from March 2023. Given underlying dementia and current encephalopathy unable to rule out Wernicke's-Korsakoffs encephalopathy. Will repeat level and start thiamine 500mg IV TID. (6) Biventricular ICD (implantable cardioverter-defibrillator) in place: Plan: Intermittently paced rhythm (7) Cardiomyopathy, nonischemic: Plan: LVEF 40-45% in October with moderate diffuse hypokinesis. Monitor closely for worsening respiratory status. Hold losartan/Entresto while in MARIIA - usually on Entresto but unknown why she was switched to losartan when she went to [facility] ?availability. Monitor I&Os (8) Paroxysmal atrial fibrillation: Plan: Hold Eliquis duet o MARIIA Holding carvedilol due to hypotension at this time. Currently rate appropriate. Mainly paced at this time Plan VTE Prophylaxis - she is adequately anticoagulated with Eliquis at this time with MARIIA likely causing increased levels therefore while NPO will defer further anticoagulation overnight depending on responsiveness tomorrow Diet - NPO Disposition - admit to PCU Admission and Anticipated Discharge Date Admission Date: Dec 17, 2023 History of Present Illness Chief Complaint: Unresponsiveness Primary Care Provider: Agustin Mcmahon Kathrin Carrillo is an 83 year old female who presents to the ER with decreased responsiveness. Unable to get any history from the patient due to decreased responsiveness. She opens eyes to voice, withdraws from pain and making incomprehensible sounds. She is currently in [facility] for rehabilitation following recent hospitalizations here in October for congestive heart failure and COVID-19 then suspected COPD exacerbation in [place]. At baseline she has underlying dementia but able to hold full conversations. Recent hospitalizations have reduced her mobility but her baseline is walking with a stick. Reportedly she was well this morning taking her morning medications. Around noon when her came in to visit her he found her slumped over in a chair in the lounge with decreased responsiveness. He notes she has a history of syncopal episodes especially in the settings of infections. Notably was admitted here in March 2023 with syncopal episodes in the setting of UTI. He notes the last few days she has just been complaining of being thirsty as she is on a fluid restriction but otherwise no complaints. Entresto was switched to losartan by [facility] per EMR although unclear reasons for this and her was unaware of this change. Allergies Allergy/AdvReac Type Severity Reaction Status Date / Time duloxetine [From Cymbalta] Allergy Unknown Unknown Verified 12/17/23 15:11 Egg Derived Allergy Unknown Unknown Verified 12/17/23 15:11 norepinephrine Allergy Unknown ON EMBASSY Verified 12/17/23 15:[address] [facility] MED LIST ciprofloxacin AdvReac Severe Elaine Verified 12/17/23 15:11 Muscle aches and weakness epinephrine AdvReac Intermediate NERVOUS;INCREASED Verified 12/17/23 15:11 HR meperidine AdvReac Intermediate VOMITING Verified 12/17/23 15:11 nitrofurantoin AdvReac Intermediate upset Verified 12/17/23 15:11 [From Macrobid] stomach Home Medications Medication Instructions Recorded Confirmed Type sodium chloride 1,000 mg soluble 2,000 mg PO TID 05/22/23 12/17/23 History tablet apixaban 5 mg tablet (Eliquis) 5 mg PO BID #180 tabs 09/24/23 12/17/23 Rx acetaminophen 325 mg tablet 650 mg PO Q6H PRN PAIN/FEVER >101 12/17/23 12/17/23 History (Tylenol) carvedilol 25 mg tablet 25 mg PO BID 12/17/23 12/17/23 History cholecalciferol (vitamin D3) 25 25 mcg PO DAILY 12/17/23 12/17/23 History mcg (1,000 unit) capsule (Vitamin D3) furosemide 20 mg tablet (Lasix) 20 mg PO BID edema 12/17/23 12/17/23 History losartan 25 mg tablet 25 mg PO BID 12/17/23 12/17/23 History multivitamin with minerals 1 tab PO DAILY 12/17/23 12/17/23 History potassium chloride 20 mEq 40 meq PO DAILY 12/17/23 12/17/23 History tablet,extended release vitamin E 268 mg (400 unit) capsule 268 mg PO 3XWK 12/17/23 12/17/23 History Past Med/Surg History Medical History Lumbar disc disease Restless legs Arthritis of knee Nasal septal deviation Hypertrophy of both inferior nasal turbinates Allergic rhinitis Acute bronchitis History of varicose veins Vitamin D deficiency Urinary frequency Snoring Pre-diabetes Polyneuropathy Paroxysmal ventricular tachycardia Pain of finger of left hand Malignant neoplasm of breast LBBB (left bundle branch block) Joint pain Impaired glucose metabolism Goiter Generalized osteoarthritis of multiple sites Fibromyalgia Female stress incontinence Fatigue Encounter for routine gynecological examination Dyspnea on exertion Chronic sinusitis Chronic maxillary sinusitis Cardiomyopathy, nonischemic Biventricular ICD (implantable cardioverter-defibrillator) in place Acute hypersomnolence disorder Pacemaker HTN (hypertension) No pertinent family history Surgical History History of vaginal hysterectomy H/O umbilical hernia repair History of lumpectomy left breast Hx of colonoscopy History of cholecystectomy History of breast biopsy Family History Mother Breast cancer Hypertension Cancer Gallbladder disease Brother Hypertension Diabetes Other No pertinent family history Denies family history of Ovarian cancer Prostate cancer Myocardial infarction Colorectal cancer Social History Smoking Status: Never smoker Age Started Using Tobacco: 18; Age Quit Using Tobacco: 23; Second Hand Exposure: No; Hx Alcohol Use: No Hx Substance Use: No Preferred Language: Thai Communication Ability: Effective Visual Impairment: No Limitations Hearing Ability: Hard of Hearing 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 Beliefs That Will Affect Care: Judaism marital status: Current Living Situation: Custodial Current Living Situation Comment: [place] 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 Feels Safe at Home: Yes Safety Concerns: Feels Safe At This Time Childhood Exposure to Second-Hand Smoke: No Diet: regular Diet Comment: regular caffeine: Yes during the past year weight has: other Dental Care, Regularly: Yes Physical Activity Frequency: Does not Exercise Physical Activity Frequency Comment: limited by physical condition Seatbelt Use: always Sunscreen Use: Yes Assistive Devices: Cane Review of Systems Review of Systems: Unobtainable due to cognitive status Physical Exam Constitutional: well developed; + not well nourished and no acute distress Eyes: PERRL, conjunctivae normal, anicteric sclerae ENMT: Mouth: + dry oral mucous membranes Respiratory: normal respiratory effort Auscultation: + diminished lung sounds (throughout); no crackles and no wheezes Cardiovascular: Rate/Rhythm: regular rate and + irregularly irregular Heart Sounds: + murmur Extremities: normal capillary refill; no calf tenderness and no pedal edema Gastrointestinal (Abdomen): normal bowel sounds, soft, nontender, no hepatosplenomegaly Skin: no rashes, warm and dry Neurologic: awake (to voice, GCS 9 (E3V2M4)) and + confused; + does not move all extremities Unable to follow simple one step commands at this time Psychiatric: Orientation: alert (to voice); + not oriented x 3 Results & Data Results & Data Vital Signs (Past 12 Hours) Vital Signs Temp Pulse Resp BP Pulse Ox O2 Del Method 12/17/23 13:58 96 H 12/17/23 13:12 35.9 C L 87 15 106/64 100 Room Air Laboratory Results Abnormal lab results 12/17/23 12/17/23 Range/Units 13:15 13:42 RBC 4.04 L (4.20-5.40) M/uL RDW Std Deviation 51.9 H (36.4-46.3) fL RDW Coeff of Morgan 15.0 H (11.5-14.5) % Neut # (Auto) 8.15 H (1.40-6.50) K/uL Lymph # (Auto) 1.00 L (1.20-3.40) K/uL PT 13.5 H (9.0-12.0) Seconds INR 1.2 H (0.9-1.1) APTT 32 H (21-31) Seconds VBG pH 7.31 L (7.36-7.41) VBG pCO2 51 H (38-50) mmHg BUN 43 H (6-23) mg/dl Creatinine 2.02 H (0.6-1.2) mg/dl BUN/Creatinine Ratio 21.3 H (10-20) Glucose 171 H (70-99(Fasting)) mg/dl Lactate 2.2 H* (0.4-2.0) mmol/L Total Bilirubin 1.4 H (0.2-1.0) mg/dl Troponin I High Sens 45.1 H (0-14) pg/ml Diagnostic Findings XR chest 1V portable HISTORY: 83 years-old Female AMS acutely altered mental status COMPARISON: 10/30/2023 TECHNIQUE: AP view the chest FINDINGS: Cardiac silhouette is enlarged. Left subclavian pacer/AICD. Atherosclerosis of the aorta. No pneumothorax, pleural effusion or airspace consolidation. Cholecystectomy. Bones appear grossly intact. IMPRESSION: Cardiomegaly without acute process. HEAD CT NONCONTRAST CT DOSE: HISTORY: Altered mental status. neuro deficit, acute stroke suspected TECHNIQUE: Multiaxial CT images of the head were performed without the use of intravenous contrast. Automated exposure control was utilized for this study. A dose lowering technique was utilized adhering to the principles of ALARA. Comparison: Head CT 04/02/2023. Findings: The paranasal sinuses and mastoid air cells are clear. The calvarium and skull base are intact. There is no mass, hematoma, midline shift, acute infarct. White matter hypodensity is nonspecific but suggestive of advanced microvascular ischemic change. The ventricles and sulci demonstrate mild age- related involutional changes. Mild motion artifact. Impression: Mild motion artifact. No definite acute intracranial abnormality. CT angio neck with con CLINICAL HISTORY: neuro deficit, acute stroke suspected TECHNIQUE: CT angiography of the neck was performed following intravenous administration of iodinated contrast. Coronal and sagittal MIPS were obtained from the axial data set and were submitted for review. Automated dose lowering techniques and/or adjustment according to patient size were utilized for this examination. All measurements were calculated based on NASCET criteria. CT DOSE: 1268.66 mGy.cm Comparison: Comparison is made to CTA neck 04/02/2023 FINDINGS: Biapical emphysema is seen. CTA Neck: A 3 vessel aortic arch is shown. Atherosclerotic plaque is present in the aortic arch and at the origin of the great vessels. Significant carotid bulb atherosclerosis bilaterally without hemodynamically significant stenosis. Tortuous course of the left internal carotid artery noted. The left vertebral artery is dominant. IMPRESSION: No occlusion, hemodynamically significant stenosis, or dissection in the major cervical arteries. CT angio head w con CLINICAL HISTORY: 83 years-old Female with neuro deficit, acute stroke suspected. Acutely altered mental status COMPARISON STUDY: Head CT of same day, CT head 04/02/2023 TECHNIQUE: Following the IV administration of 112 cc of Optiray, CT angiogram of the brain was performed from the skull base to the vertex. Images are reviewed in the axial, sagittal, and coronal planes. 3-D MIPS images are created and assessed. IV contrast was administered without complication. All measurements were obtained according to NASCET criteria. A dose lowering technique was utilized adhering to the principles of ALARA. FINDINGS: CT ANGIOGRAM OF THE BRAIN: The imaged bilateral internal carotid arteries are patent at least moderate atherosclerosis. The bilateral anterior and middle cerebral arteries are also patent. Developmentally diminutive right A1 segment. The vertebrobasilar system and posterior cerebral arteries are widely patent. origin of the posterior cerebral arteries. There is no aneurysm, high-grade stenosis, or proximal branch occlusion identified. Dural sinuses appear patent. Prior bilateral lens repair. Streak artifact from dental amalgam hardware. Small right mastoid effusion. Rightward bowing and spurring of the nasal septum. Mild mucosal thickening of the paranasal sinuses. IMPRESSION: Unremarkable CTA of the head. Medications Administered ER medications given: Keppra 2000 mg IV Zosyn 4.5 g IV Normal saline 500 mL bolus Normal saline 500 mL bolus ECG Rate (beats per minute): 94 Rhythm: atrial fibrillation (with demand pacing) Findings: + other (non-specific intraventricular block) Comparison ECG Date: from (Oct 30, 2023) Code Status & VTE Plan Code Status DO NOT RESUSCITATE in the event of the cardiac arrest, okay to leave ICD on. All other treatment outside of a cardiac arrest as discussed with her at bedside. Patient unable to participate in goals of care discussion at this time. VTE Prophylaxis Plan VTE Prophylaxis will be ordered: Yes PG Care Time/CCT Total # of Minutes Spent Total Time Spent with Patient: Total time spent is greater than 50% in coordination of care (as documented) at patient's floor/unit and/or counseling patient: Coding Level of Care Code 58447 INT INP/OBS CARE MIN Diagnoses Encephalopathy due to infection G93.49; B99.9 Acute diverticulitis K57.92 Acute UTI N39.0 MARIIA (acute kidney injury) N17.9 Thiamine deficiency E51.9 Biventricular ICD (implantable cardioverter-defibrillator) in place Z95.810 Cardiomyopathy, nonischemic I42.8 Paroxysmal atrial fibrillation I48.0
[2023-12-17] MEDS: RAPID SEQUENCE INDUCTION BAG ONE (15:06)
[2023-12-17 15:19] LABS: C Reactive Protein 1.22 mg/dl (0-0.5)
[2023-12-17 15:30] LABS: Appearance Urine Turbid (Clear); Bacteria Urine Automated 2+ (Negative); Bilirubin Urine Negative (Negative); Blood Urine 1+ (Negative); Color Urine Yellow; Epithelial Cell Urine Auto 0-5 /lpf (0-5); Glucose Urine UA Negative (Negative); Ketones Urine Negative (Negative); Leukocyte Esterase Urine 3+ (Negative); Nitrite Urine Negative (Negative); Protein Urine 1+ (Negative); RBC Urine Automated 0-4 /hpf (0-4); Specific Gravity Urine 1.012 (1.000-1.030); Urobilinogen Urine Negative (Negative); WBC Urine Automated >30 /hpf (0-5); pH Urine 5.5 (4.5-7.5)
[2023-12-17 15:32] LABS: Adenovirus PCR Not Detected (NotDetected); Bordetella parapertussis PCR Not Detected (NotDetected); Bordetella pertussis PCR Not Detected (NotDetected); Chlamydia pneumoniae PCR Not Detected (NotDetected); Coronavirus 229E PCR Not Detected (NotDetected); Coronavirus CoV-2 (COVID19)PCR DETECTED (NotDetected); Coronavirus HKU1 PCR Not Detected (NotDetected); Coronavirus NL63 PCR Not Detected (NotDetected); Coronavirus OC43PCR Not Detected (NotDetected); Human Metapneumovirus PCR Not Detected (NotDetected); Influenza A PCR Not Detected (NotDetected); Influenza B PCR Not Detected (NotDetected); Mycoplasma pneumoniae PCR Not Detected (NotDetected); Parainfluenza Virus 1 PCR Not Detected (NotDetected); Parainfluenza Virus 2 PCR Not Detected (NotDetected); Parainfluenza Virus 3 PCR Not Detected (NotDetected); Parainfluenza Virus 4 PCR Not Detected (NotDetected); Respiratory Syncytial VirusPCR Not Detected (NotDetected); Rhinovirus/Enterovirus PCR Not Detected (NotDetected)
[2023-12-17] MEDS: LACTATED RINGER'S 500 ML IV ONE (16:20)
--- NOTE | 2023-12-17 16:38 | CT Scan Report ---
ABDOMEN AND PELVIS CT WITHOUT CONTRAST CT DOSE: 1324.46 mGy.cm HISTORY: Acute kidney injury MARIIA, unresponsiveness TECHNIQUE: Multiaxial CT images of the abdomen and pelvis were performed without contrast. A dose lo wering technique was utilized adhering to the principles of ALARA. COMPARISON STUDY: None. FINDINGS: Left subclavian pacer/AICD. Cardiomegaly. Clear lung bases with minimal bibasilar atelectas is. Unremarkable spleen, atrophic pancreas and adrenal glands. Cholecystectomy with likely postsurgic al biliary ductal dilation. Unremarkable liver. Mild cortical thinning of the kidneys with a few scattered bilateral renal cysts. No hydronephrosis. Contrast is noted within the parenchyma and renal collecting systems from the CTA studies obtained a few hours earlier. Decompressed urinary bladder with Squires catheter in place. Atherosclerosis aorta. No adenopathy. There is asymmetric enlargement with increased attenuation of the left iliacus muscula ture extending into the left iliopsoas. Small hiatal hernia. Moderate rectal fecal retention with moderate wall thickening and adjacent infla mmatory stranding. Colonic diverticulosis. Scattered small bowel air-fluid levels without distention. There is a small umbilical hernia. A portion of the transverse bowel partially extends into the josefa ia there is mild adjacent wall thickening and inflammatory stranding. Degenerative changes of the spi ne, pelvis and hips. No definite acute fracture identified. IMPRESSION: 1. There is a small fat filled umbilical hernia which contains the antimesenteric wall of the transve rse colon and there is an apparent small inflamed diverticulum at this location suggestive of acute d iverticulitis. 2. Small acute left-sided retroperitoneal hematoma. 3. No hydronephrosis. 4. Constipation with stercoral proctitis. 5. Additional findings as above. ACT 112: Negative or not required by law. The above report was generated using voice recognition software. It may contain grammatical, syntax o r spelling errors. Electronically signed by: Larry Ahn M.D. 12/17/2023 4:36 PM
[2023-12-17 16:40] LABS: Troponin I High Sensitivity 41.2 pg/ml (0-14)
[2023-12-17 16:50] LABS: Thyroid Stimulating Hormone 1.808 uIu/ml (0.300-4.500)
[2023-12-17] MEDS ORDERED: ACETAMINOPHEN 1,000 MG/100 ML VIAL IV PRN (18:28)
[2023-12-17] MEDS ORDERED: ONDANSETRON INJ 2 MG/ML 2 ML VIAL IV PRN (18:28)
[2023-12-17] MEDS: PIPERACILLIN/TAZOBACTAM 4.5 GM in DEXTROSE 5% MINI-B 100 ML IV SCH (19:17)
[2023-12-17 20:34] LABS: Base Excess ABG -4.1 mEq/L (-9-1.8); HCO3 ABG 20 mmol/L (19-24); Oxygen Saturation ABG 99.5 % (90-95); PCO2 ABG 33 mmHg (35-46); PO2 ABG 112 mmHg (80-95); pH ABG 7.39 (7.35-7.45)
[2023-12-17 20:38] LABS: Allen Test Pos (Pos)
[2023-12-17] MEDS: THIAMINE HCL 500 MG in SODIUM CHLORIDE 0.9% 50 ML IV SCH (22:37)
[2023-12-18] MEDS: LACTATED RINGER'S 500 ML IV ONE (01:48)
[2023-12-18 08:45] LABS: Albumin Globulin Ratio 1.1 (0.9-2); Albumin Level 3.3 gm/dl (3.4-5.0); BUN Creatinine Ratio 23.8 (10-20); Bilirubin,Total 1.1 mg/dl (0.2-1.0); Calcium 8.9 mg/dl (8.6-10.3); Creatinine Clr Calc Pharmacy 25.5 ml/min; Est GFR (Non-African American) 25.1 ml/min; Potassium 4.1 mmol/L (3.5-5.1); Total Protein 6.3 gm/dl (6.0-8.3)
[2023-12-18 08:48] LABS: Basophils # (auto) 0.02 K/uL (0.00-0.20); Basophils % (auto) 0.2 %; Eosinophils # (auto) 0.04 K/uL (0.00-0.50); Eosinophils % (auto) 0.4 %; Hematocrit (blood only) 35.1 % (37.0-47.0); Hemoglobin 11.2 g/dl (12.0-16.0); Immature Granulocytes # (auto) 0.04 K/uL (0.01-0.20); Immature Granulocytes % (auto) 0.4 %; Lymphocytes # (auto) 1.54 K/uL (1.20-3.40); Lymphocytes % (auto) 15.9 %; Mean Corpuscular Hemoglobin 29.7 pg (25.0-34.0); Mean Corpuscular Hgb Conc 31.9 g/dL (32.0-36.0); Mean Corpuscular Volume 93.1 fL (80.0-100.0); Mean Platelet Volume 10.9 fL (9.4-12.4); Monocytes % (auto) 8.3 %; Neutrophils # (auto) 7.25 K/uL (1.40-6.50); Neutrophils % (auto) 74.8 %; Platelet Count 186 K/uL (130-400); RDW Coefficient of Variation 15.1 % (11.5-14.5); RDW Standard Deviation 51.7 fL (36.4-46.3); Red Blood Count 3.77 M/uL (4.20-5.40); White Blood Count 9.69 K/ul (4.8-10.8)
[2023-12-18] MEDS: LACTATED RINGER'S 1,000 ML IV SCH (12:42)
--- NOTE | 2023-12-18 17:46 | Hospitalist Progress Note ---
Date of Service December 18, 2023 Assessment & Plan (1) Encephalopathy due to infection: Plan: Other episodes of unexplained loss of consciousness in the past (March 2023 admission ultimately suspected to be orthostasis +/- UTI). ICD/pacemaker MRI incompatible. Suspect this time due to hypotension in setting of dehydration and UTI/diverticulitis Continue NPO until more awake (2) Acute diverticulitis: Plan: Noted on CT. NPO. IV Zosyn. Start IV LR @ 80ml/hr. (3) Acute UTI: Plan: Follow up blood cultures Follow up urine cultures - GNB x2, awaiting full identification IV Zosyn (4) SARS-CoV-2 positive: Plan: Suspect residual from October although unable to take a good history at this time. Suspect we can remove isolation precautions once better history can be obtained. (5) MARIIA (acute kidney injury): Plan: No post obstructive cause on CT Appears hypovolemic and in setting of hypotension. Hold all anti-hypertensives at this time - Lasix, losartan/Entresto and carvedilol If develops a. fib RVR overnight may tolerate IV doses of metoprolol. (6) Thiamine deficiency: Plan: Noted on prior labs from March 2023. Given underlying dementia and current encephalopathy unable to rule out Wernicke's-Korsakoffs encephalopathy. Level repeated although unclear if this was from labs prior to IV thiamine Continue thiamine 500mg IV q8h (7) Biventricular ICD (implantable cardioverter-defibrillator) in place: Plan: Currently in atrial fibrillation (8) Cardiomyopathy, nonischemic: Plan: LVEF 40-45% in October with moderate diffuse hypokinesis. Monitor closely for worsening respiratory status. Hold losartan/Entresto while in MARIIA - usually on Entresto but unknown why she was switched to losartan when she went to [facility] ?availability. Monitor I&Os (9) Paroxysmal atrial fibrillation: Plan: Hold Eliquis due to MARIIA Holding carvedilol due to hypotension at this time. Currently rate appropriate. Runs of NSVT vs. a.fib with aberrancy - will consult cardiology Plan VTE Prophylaxis - SLT consult to assess ability to swallow tomorrow, if unable will switch to heparin, otherwise plan on restarting Eliquis tomorrow Diet - NPO Disposition - continue on PCU Admission and Anticipated Discharge Date Admission Date: December 17, 2023 Subjective Opening her eyes much easier this morning. Able to shake her head and nod to questions but still not back to baseline. Occasionally can respond with yes or no answers. No abdominal pain, shortness of breath, chest pain, nasal congestion, sore throat, cough, diarrhea. Afebrile. Review of Systems Review of Systems: Unobtainable due to cognitive status Physical Exam Constitutional: well developed; + not well nourished and no acute distress Eyes: PERRL, conjunctivae normal, anicteric sclerae ENMT: Mouth: + dry oral mucous membranes Respiratory: normal respiratory effort Auscultation: + diminished lung so unds (throughout); no crackles and no wheezes Cardiovascular: Rate/Rhythm: regular rate and + irregularly irregular Heart Sounds: + murmur Extremities: normal capillary refill; no calf tenderness and no pedal edema Gastrointestinal (Abdomen): normal bowel sounds, soft, nontender, no hepatosplenomegaly Skin: no rashes, warm and dry Neurologic: moves all extremities, awake (to voice, GCS 13 (E4V4M5)) and + confused Psychiatric: Orientation: alert; + not oriented x 3 Results & Data Results & Data Vital Signs (Past 12 Hours) Vital Signs Temp Pulse Pulse Resp BP Pulse Ox O2 Del Method 12/18/23 15:25 85 12/18/23 14:55 36.4 C L 93 H 19 98/51 L 93 Nasal Cannula 12/18/23 11:47 36.7 C 90 19 107/66 95 Nasal Cannula 12/18/23 09:47 Nasal Cannula 12/18/23 07:03 36.9 C 84 19 90/62 L 100 Nasal Cannula O2 Flow Rate 12/18/23 15:25 12/18/23 14:55 12/18/23 11:47 2 12/18/23 09:47 1 12/18/23 07:03 2 PG Care Time/CCT Total # of Minutes Spent Total Time Spent with Patient: Total time spent is greater than 50% in coordination of care (as documented) at patient's floor/unit and/or counseling patient: Coding Level of Care Code 69194 SUB INP/OBS CARE 3/50MIN Diagnoses Encephalopathy due to infection G93.49; B99.9 Acute diverticulitis K57.92 Acute UTI N39.0 SARS-CoV-2 positive U07.1 MARIIA (acute kidney injury) N17.9 Thiamine deficiency E51.9 Biventricular ICD (implantable cardioverter-defibrillator) in place Z95.810 Cardiomyopathy, nonischemic I42.8 Paroxysmal atrial fibrillation I48.0
[2023-12-19 06:58] LABS: Basophils # (auto) 0.04 K/uL (0.00-0.20); Basophils % (auto) 0.4 %; Eosinophils # (auto) 0.15 K/uL (0.00-0.50); Eosinophils % (auto) 1.7 %; Hematocrit (blood only) 31.4 % (37.0-47.0); Hemoglobin 10.4 g/dl (12.0-16.0); Immature Granulocytes # (auto) 0.03 K/uL (0.01-0.20); Immature Granulocytes % (auto) 0.3 %; Lymphocytes # (auto) 1.62 K/uL (1.20-3.40); Lymphocytes % (auto) 18.2 %; Mean Corpuscular Hemoglobin 30.5 pg (25.0-34.0); Mean Corpuscular Hgb Conc 33.1 g/dL (32.0-36.0); Mean Corpuscular Volume 92.1 fL (80.0-100.0); Mean Platelet Volume 10.8 fL (9.4-12.4); Monocytes # (auto) 0.93 K/uL (0.11-0.59); Monocytes % (auto) 10.4 %; Neutrophils # (auto) 6.15 K/uL (1.40-6.50); Platelet Count 167 K/uL (130-400); RDW Standard Deviation 50.4 fL (36.4-46.3); Red Blood Count 3.41 M/uL (4.20-5.40); White Blood Count 8.92 K/ul (4.8-10.8)
[2023-12-19 07:27] LABS: Albumin Globulin Ratio 1.1 (0.9-2); Albumin Level 3.1 gm/dl (3.4-5.0); BUN Creatinine Ratio 20.1 (10-20); Bilirubin,Total 1.1 mg/dl (0.2-1.0); Calcium 8.7 mg/dl (8.6-10.3); Creatinine Clr Calc Pharmacy 31.9 ml/min; Est GFR (African American) 36.7 ml/min; Est GFR (Non-African American) 31.7 ml/min; Globulin 2.7 gm/dl (2.5-4.0); Potassium 3.5 mmol/L (3.5-5.1); Total Protein 5.8 gm/dl (6.0-8.3)
--- NOTE | 2023-12-19 10:25 | Hospitalist Progress Note ---
Date of Service December 19, 2023 Assessment & Plan (1) Encephalopathy due to infection: Plan: Other episodes of unexplained loss of consciousness in the past (March 2023 admission ultimately suspected to be orthostasis +/- UTI). ICD/pacemaker MRI incompatible - but low suspicion of stroke given alternative etiology with non unilateral or specific neurological findings. Suspect this time due to hypotension in setting of dehydration and UTI/diverticulitis Significantly improved mental status daily since admission PT/OT - likely to need further rehabilitation on discharge since she was admitted from [facility] while getting acute rehab (2) Acute UTI: Plan: Follow up blood cultures - negative @ 24 hours Follow up urine cultures - E. coli resistant to ampicillin and Unasyn Switch to ceftriaxone tomorrow as long as blood cultures remain negative at 48 hours (3) Acute diverticulitis: Plan: Noted on CT. Advance to full liquids today. IV Zosyn. Continue IV LR @ 80ml/hr - stop after 3L. Can switch antibiotics to ceftriaxone + metronidazole as long as blood cultures remain negative @ 48 hours As long as no abdominal can like advance diet again tomorrow (4) SARS-CoV-2 positive: Plan: No specific COVID symptoms with observation of the last fews days and on questioning patient today. Test suspected to still be positive from October - COVID precautions can be removed at this time. (5) MARIIA (acute kidney injury): Plan: Resolving with IV fluids No post obstructive cause on CT Appears hypovolemic and in setting of hypotension. Continue to hold all anti- hypertensives at this time - Lasix, losartan/Entresto and carvedilol (6) Thiamine deficiency: Plan: Noted on prior labs from March 2023. Given underlying dementia and current encephalopathy unable to rule out Wernicke's-Korsakoffs encephalopathy. Level repeated although unclear if this was from labs prior to IV thiamine Continue thiamine 500mg IV q8h (7) Biventricular ICD (implantable cardioverter-defibrillator) in place: Plan: Currently in atrial fibrillation (8) Cardiomyopathy, nonischemic: Plan: LVEF 40-45% in October with moderate diffuse hypokinesis. Monitor closely for worsening respiratory status. Hold losartan/Entresto while in MARIIA - usually on Entresto but unknown why she was switched to losartan when she went to [facility] ?availability. Monitor I&Os (9) Paroxysmal atrial fibrillation: Plan: Restart Eliquis Wide complex irregular rhythm on monitor suspected to be a. fib with aberrant conduction Discussed care with Dr Reynolds and plan to start on amiodarone as she has been in a. fib for the last few months on pacemaker check Plan VTE Prophylaxis - Eliquis Diet - full liquid Disposition - continue on PCU Admission and Anticipated Discharge Date Admission Date: December 17, 2023 Subjective Much more alert and can answer questions with words today. Passed for diet with SLT. Unable to tell me anything about the last few days or events leading to her presentation but currently she denies any COVID symptoms such as nasal congestion, cough, shortness of breath and these have not been noticed by her nurses over the last few days. No abdominal pain, nausea, vomiting. Review of Systems Review of Systems: All systems reviewed & are unremarkable except as noted in HPI & below Physical Exam Constitutional: well developed; + not well nourished and no acute distress Respiratory: normal respiratory effort Auscultation: + diminished lung sounds (throughout); no crackles and no wheezes Cardiovascular: Rate/Rhythm: regular rate and + irregularly irregular Heart Sounds: + murmur Extremities: normal capillary refill; no calf tenderness and no pedal edema Gastrointestinal (Abdomen): normal bowel sounds, soft, nontender, no hepatosplenomegaly Skin: no rashes, warm and dry Neurologic: moves all extremities, awake (GCS 15) and + confused Psychiatric: Orientation: alert; + not oriented x 3 Results & Data Results & Data Vital Signs (Past 12 Hours) Vital Signs Temp Pulse Resp BP Pulse Ox O2 Del Method O2 Flow Rate 12/19/23 03:26 36.9 C 89 17 106/72 95 Room Air 12/18/23 22:59 36.5 C 103 H 20 87/53 L 96 Nasal Cannula 2 PG Care Time/CCT Total # of Minutes Spent Total Time Spent with Patient: Total time spent is greater than 50% in coordination of care (as documented) at patient's floor/unit and/or counseling patient: Coding Level of Care Code 56395 SUB INP/OBS CARE 3/50MIN Diagnoses Encephalopathy due to infection G93.49; B99.9 Acute UTI N39.0 Acute diverticulitis K57.92 SARS-CoV-2 positive U07.1 MARIIA (acute kidney injury) N17.9 Thiamine deficiency E51.9 Biventricular ICD (implantable cardioverter-defibrillator) in place Z95.810 Cardiomyopathy, nonischemic I42.8 Paroxysmal atrial fibrillation I48.0
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
[2023-12-19] MEDS ORDERED: STAT IV Infusion **Titration per Protocol STA (17:12)
[2023-12-19] MEDS ORDERED: AMIODARONE IV BOLUS & DRIP IV STA (17:12)
[2023-12-19] MEDS ORDERED: 0.2 MICRON FILTER SET 1 EACH IV STA (17:12)
[2023-12-19] MEDS: AMIODARONE / D5W 150 MG/100 ML BAG IV STA (17:41)
[2023-12-19] MEDS: AMIODARONE / D5W 360 MG/200 ML BAG IV ONE (17:50)
[2023-12-19] MEDS: APIXABAN 5 MG TABLET PO SCH (19:49)
[2023-12-19] MEDS: AMIODARONE / D5W 360 MG/200 ML BAG IV SCH (23:55)
[2023-12-20] MEDS: metroNIDAZOLE 500 MG/100 ML BAG IV SCH (07:28)
[2023-12-20 07:45] LABS: Basophils # (auto) 0.04 K/uL (0.00-0.20); Basophils % (auto) 0.6 %; Eosinophils # (auto) 0.28 K/uL (0.00-0.50); Eosinophils % (auto) 4.2 %; Hematocrit (blood only) 31.8 % (37.0-47.0); Immature Granulocytes # (auto) 0.03 K/uL (0.01-0.20); Immature Granulocytes % (auto) 0.5 %; Lymphocytes # (auto) 1.52 K/uL (1.20-3.40); Mean Corpuscular Hemoglobin 29.3 pg (25.0-34.0); Mean Corpuscular Hgb Conc 31.4 g/dL (32.0-36.0); Mean Corpuscular Volume 93.3 fL (80.0-100.0); Mean Platelet Volume 11.1 fL (9.4-12.4); Monocytes # (auto) 0.62 K/uL (0.11-0.59); Monocytes % (auto) 9.4 %; Neutrophils # (auto) 4.11 K/uL (1.40-6.50); Neutrophils % (auto) 62.3 %; Platelet Count 158 K/uL (130-400); RDW Coefficient of Variation 15.1 % (11.5-14.5); RDW Standard Deviation 51.7 fL (36.4-46.3); Red Blood Count 3.41 M/uL (4.20-5.40)
--- NOTE | 2023-12-20 08:01 | Hospitalist Progress Note ---
Date of Service December 20, 2023 Assessment & Plan (1) Encephalopathy due to infection: Plan: Other episodes of unexplained loss of consciousness in the past (March 2023 admission ultimately suspected to be orthostasis +/- UTI). ICD/pacemaker MRI incompatible - but low suspicion of stroke given alternative etiology with non unilateral or specific neurological findings. Suspect this time due to hypotension in setting of dehydration and UTI/diverticulitis Significantly improved mental status daily since admission -- did have a little confusion this morning 12/[address] knew year/in hospital, answering questions appropriately. --> per , had been down for ~20hours prior to admission, ck minimal elevation on admission PT/OT - likely to need further rehabilitation on discharge since she was admitted from [facility] while getting acute rehab --> per , would like to return back to [facility] when able Episode of vtach overnight, 15 beats --> amio converted to PO and metoprolol 25mg daily (in place of carvedilol at home) (2) Paroxysmal atrial fibrillation: Plan: Restarted Eliquis Wide complex irregular rhythm on monitor suspected to be a. fib with aberrant conduction Discussed care with Dr Reynolds and started on amiodarone as she has been in a. fib for the last few months on pacemaker check --> remains in afib, 15 beat run of vtach overnight -- remains on eliquid BID Mag/K LOW on AM labs, replacement ordered. Metoprolol 25mg daily added by cardiology, appreciate recs/assistance Continue to monitor on telemetry (3) Acute UTI: Plan: Follow up blood cultures - negative @ 48 hours Urine cx ecoli x 2- resistant to ampicillin and Unasyn Switched to ceftriaxone 12/20 to complete course (was prior on Zosyn since admission) Miller in place, monitor w/ PT/OT to remove/voiding trial (4) Acute diverticulitis: Plan: Noted on CT. Advance to full liquids today. IV Zosyn. Continue IV LR @ 80ml/hr - stop after 3L. Switched abx to Ceftriaxone/Flagyl IV given bcx negative x 48 hours (also notes stercoral proctitis on initial CTAP?) Diet advanced to LOW FIBER for 12/20 given no reported abdominal pain and requesting upgraded diet Monitor for any issues w/ increased diet (discussed w/ at bedside) (5) SARS-CoV-2 positive: Plan: No specific COVID symptoms with observation of the last fews days and on questioning patient today. Test suspected to still be positive from October - COVID precautions can be removed at this time. occasional dry cough, remains 98% on RA. afebrile (6) MARIIA (acute kidney injury): Plan: Cr to 2.02 on admit w/ normal baseline, resolving w/ IVF which have been stopped at present time No post obstructive cause on CT Cr to 1.08 on AM labs, BP stable/borderline 111/73 and will continue to hold her lasix/losartan/entresto for now --> Carvedilol switched to metoprolol for afib Renal dose meds/avoid nephrotoxins BMP in AM (7) Thiamine deficiency: Plan: Noted on prior labs from March 2023. Given underlying dementia and current encephalopathy unable to rule out Wernicke's-Korsakoffs encephalopathy. Level repeated although unclear if this was from labs prior to IV thiamine Provided 500mg q8h initially, changed to 200mg IV daily for now B1 level pending however unclear if this was from labs prior to IV thiamine and can continue once daily empiric PO at dc (8) Biventricular ICD (implantable cardioverter-defibrillator) in place: Plan: Currently in atrial fibrillation, amiodarone/metoprolol/eliquis as above (9) Cardiomyopathy, nonischemic: Plan: LVEF 40-45% in October with moderate diffuse hypokinesis. Monitor closely for worsening respiratory status. Hold losartan/Entresto while in MARIIA - usually on Entresto but unknown why she was switched to losartan when she went to [facility] ?availability. Should not be on entresto + losartan Monitor I&Os *Of note, dc summary from [facility] from 11/11/23 has listed NaCl 1gm tablet daily on home med list however we did not have that in the past?? Will need to discuss w/ /patient to clarify during repeat encounter (10) Hypokalemia: Plan: K 3.0, diuretics remain on hold. suspect due to limited PO inake/liquid diet Ordered PO/IV replacement, diet advanced. Mag checked (also due to her afib) --> 1.6, IV replacement ordered BMP, mag in AM (11) Hypomagnesemia: Plan: low, Iv replacement as above monitor in am (12) Acute dehydration: Plan: improving, diuretics remaining on hold (13) Acute hypotension: Plan: BPs improving at present time, 111/73, no futher IVF ordered. diuretics on hold/diet advanced as above and will monitor ability/need to resume home meds as able Plan VTE Prophylaxis - Eliquis Diet - full liquid advanced to low fiber Continued inpatient stay, PT/OT consults to be undertaken -- return to [facility] when able? Admission and Anticipated Discharge Date Admission Date: December 17, 2023 Supervising Physician Co-Signing Physician Notes The patient was not seen by me. The chart was reviewed. Case discussed with PIERCE Dillard. Agree with assessment and plan Subjective Eval this morning before lunch. Resting in bed. Patient reports feeling a little better. Knows in hospital/2023 but initially thought in [facility]. at bedside reports she was down ~20 hours prior to coming in. From [facility] and planning to return there when able. Denies difficulty breathing, remains in afib -- notes Dr Lofton shocked her out of that a couple years ago but hadn't been issue for some time. Discussed pacemaker reporting being in for a period of time and continues on eliquis, amiodarone switched to PO. Did have 22 beat beat run vtch last evening around 22: 54. Discussed K/Mag and replacement and will continue to monitor on telemetry at p resent time. Remains in afib but hopefully able to see if able to convert back w/ electrolyte replacement but will continue on ordered medications at present time by cardiology. Patient is hungry -- denies any abdominal pain/nausea and would like advancement of diet. Discussed low fiber diet and to monitor for any increased pain/backing off diet but will monitor. Imller w/ concentrated urine at present, will continue to hold home diuretics. Questions/concerns addressed at this time. Physical Exam Physical Exam: 83yo female, chronically ill appearing, resting in bed, at bedside, NAD, quiet to answer questions psych: alert to person, knows in hospital, 2023 but thought she was in [facility] head atraumatic, normocephalic, mmm, trachea midline resp: even/unlabored however diminished in the bases w/ bibasilar crackles, on room air cv; irregularly irregular, +systolic murmur, no significant LE/pedal edema,calves nontender GI: +BS, slight distension but NONTENDER, no guarding/rigidity : miller draining concentrated but yellow urine MSK/Neuro: generalized weakness but nonfocal, able to answer questions appropriately Results & Data Results & Data Vital Signs (Past 12 Hours) Vital Signs Temp Pulse Resp BP BP Pulse Ox O2 Del Method 12/20/23 07:38 36.5 C 78 18 106/74 96 Room Air 12/20/23 04:07 36.9 C 76 16 106/72 97 Room Air 12/20/23 01:01 Room Air 12/19/23 22:42 36.5 C 72 16 95/66 L 95 Room Air 12/19/23 20:00 Room Air Laboratory Results 12/20/23 Range/Units 07:19 WBC 6.60 (4.8-10.8) K/ul RBC 3.41 L (4.20-5.40) M/uL Hgb 10.0 L (12.0-16.0) g/dl Hct 31.8 L (37.0-47.0) % MCV 93.3 (80.0-100.0) fL MCH 29.3 (25.0-34.0) pg MCHC 31.4 L (32.0-36.0) g/dL RDW Std Deviation 51.7 H (36.4-46.3) fL RDW Coeff of Morgan 15.1 H (11.5-14.5) % Plt Count 158 (130-400) K/uL MPV 11.1 (9.4-12.4) fL Immature Gran % (Auto) 0.5 % Neut % (Auto) 62.3 % Lymph % (Auto) 23.0 % [place] % (Auto) 9.4 % Eos % (Auto) 4.2 % Baso % (Auto) 0.6 % Neut # (Auto) 4.11 (1.40-6.50) K/uL Lymph # (Auto) 1.52 (1.20-3.40) K/uL [place] # (Auto) 0.62 H (0.11-0.59) K/uL Eos # (Auto) 0.28 (0.00-0.50) K/uL Baso # (Auto) 0.04 (0.00-0.20) K/uL Immature Gran # (Auto) 0.03 (0.01-0.20) K/uL Sodium 137 (136-145) mmol/L Potassium 3.0 L (3.5-5.1) mmol/L Chloride 104 (98-107) mmol/L Carbon Dioxide 25 (21-32) mmol/L Anion Gap 8 (3-11) BUN 20 (6-23) mg/dl Creatinine 1.08 D (0.6-1.2) mg/dl Est Cr Clr Drug Dosing 43.2 ml/min Est GFR ( Amer) 54.2 ml/min Est GFR (Non-Af Amer) 46.8 ml/min BUN/Creatinine Ratio 18.5 (10-20) Glucose 92 (70-99(Fasting)) mg/dl Calcium 8.4 L (8.6-10.3) mg/dl Magnesium 1.6 L (1.7-2.4) mg/dl PG Care Time/CCT Total # of Minutes Spent Total Time Spent with Patient: Total time spent is greater than 50% in coordination of care (as documented) at patient's floor/unit and/or counseling patient: Coding Level of Care Code 61567 SUB INP/OBS CARE 3/50MIN Diagnoses Encephalopathy due to infection G93.49; B99.9 Paroxysmal atrial fibrillation I48.0 Acute UTI N39.0 Acute diverticulitis K57.92 SARS-CoV-2 positive U07.1 MARIIA (acute kidney injury) N17.9 Thiamine deficiency E51.9 Biventricular ICD (implantable cardioverter-defibrillator) in place Z95.810 Cardiomyopathy, nonischemic I42.8 Hypokalemia E87.6 Hypomagnesemia E83.42 Acute dehydration E86.0 Acute hypotension I95.9
[2023-12-20 08:19] LABS: BUN Creatinine Ratio 18.5 (10-20); Calcium 8.4 mg/dl (8.6-10.3); Creatinine Clr Calc Pharmacy 43.2 ml/min; Est GFR (African American) 54.2 ml/min; Est GFR (Non-African American) 46.8 ml/min; Magnesium 1.6 mg/dl (1.7-2.4)
[2023-12-20] MEDS: cefTRIAXone SODIUM 2,000 MG in DEXTROSE 5 % MINI-B 50 ML IV SCH (08:55)
[2023-12-20] MEDS: THIAMINE HCL 200 MG in SODIUM CHLORIDE 0.9% 50 ML IV SCH (08:56)
--- NOTE | 2023-12-20 09:19 | Cardiology Progress Note ---
Date of Service December 20, 2023 Assessment & Plan (1) Cardiomyopathy: (2) Paroxysmal atrial fibrillation: (3) LBBB (left bundle branch block): (4) Biventricular ICD (implantable cardioverter-defibrillator) in place: Plan 1. Cardiomyopathy: She appears to be well compensated. Medications were held due to an element of mild hypotension. I would favor re-initiation of metoprolol succinate over carvedilol to avoid lower blood pressures. Was accomplished we could entertain the possibility of resuming losartan. 2. Atrial fibrillation: Doing well on amiodarone. I think we will convert her to oral dosing. Will also restart metoprolol succinate. No concerns over lower heart rates given her biventricular ICD. Systemic anticoagulation re-initiated. Atrial therapies are active in her ICD but have failed to return her to a sinus rhythm. When she has been loaded on amiodarone, we could entertain the possibility of cardioverting her. This can be addressed in the outpatient setting. 3. Mitral regurgitation: Reportedly mild on echocardiogram performed in October at an outside facility. This can be monitored over time. Not likely to be a clinical concern the course of her lifetime. 4. Biventricular ICD: Hopefully will see improved pacing percentage once the atrial fibrillation is controlled. 5. White complex tachycardia: Mostly conducted atrial fibrillation. However, there was 1 episode of nonsustained VT overnight. She has had similar episodes in the past. She has an ICD and will be on amiodarone and metoprolol. I will be away from the hospital for the next 2 days. If there are questions regarding her cardiac care, please contact the on-call [facility] biometrics technician. Admission and Anticipated Discharge Date Admission Date: December 17, 2023 Subjective This morning the patient had no specific complaints. She requested toast for breakfast. She denies breathing difficulty. She denies pain of any variety. She could not recall why she was in the hospital. She could not recall where she lived. No sense of palpitation. No chest pain. Review of Systems Review of Systems: Unobtainable due to cognitive status Physical Exam Physical Exam: She is alert and answered questions although the answers were not correct sometimes. Very forgetful. HEENT: Sclerae are anicteric. Pupils are equal and reactive to light and accommodation. Extraocular movements were intact. Neuro: Cranial nerves intact Chest: Well-healed device implant site in left upper pectoral area. Lungs: Lungs are clear to auscultation bilaterally. There are no rales wheezes or rhonchi. She has normal respiratory effort without use of accessory muscles. There is normal pulmonary excursion. Cardiac: The rhythm was irregular. S1 and S2 were normal. There are no murm urs on examination. The PMI was not markedly displaced on palpation. Extremities: Patient has bilateral radial pulses that are equal in intensity. There is no evidence cyanosis or clubbing. There was no evidence of significant peripheral edema bilaterally. Skin: Cheeks were red Results & Data Vital Signs (Past 12 Hours) Vital Signs Temp Pulse Resp BP BP Pulse Ox O2 Del Method 12/20/23 07:38 36.5 C 78 18 106/74 96 Room Air 12/20/23 04:07 36.9 C 76 16 106/72 97 Room Air 12/20/23 01:01 Room Air 12/19/23 22:42 36.5 C 72 16 95/66 L 95 Room Air Laboratory Results Abnormal Lab Results 12/20/23 07:19 WBC 6.60 RBC 3.41 L Hgb 10.0 L Hct 31.8 L MCV 93.3 MCH 29.3 MCHC 31.4 L RDW Std Deviation 51.7 H RDW Coeff of Morgan 15.1 H Plt Count 158 MPV 11.1 Immature Gran % (Auto) 0.5 Neut % (Auto) 62.3 Lymph % (Auto) 23.0 [place] % (Auto) 9.4 Eos % (Auto) 4.2 Baso % (Auto) 0.6 Neut # (Auto) 4.11 Lymph # (Auto) 1.52 [place] # (Auto) 0.62 H Eos # (Auto) 0.28 Baso # (Auto) 0.04 Immature Gran # (Auto) 0.03 Sodium 137 Potassium 3.0 L Chloride 104 Carbon Dioxide 25 Anion Gap 8 BUN 20 Creatinine 1.08 D Est Cr Clr Drug Dosing 43.2 Est GFR ( Amer) 54.2 Est GFR (Non-Af Amer) 46.8 BUN/Creatinine Ratio 18.5 Glucose 92 Calcium 8.4 L Magnesium 1.6 L PG Care Time/CCT Total # of Minutes Spent Total Time Spent with Patient: Total time spent is greater than 50% in coordination of care (as documented) at patient's floor/unit and/or counseling patient: Coding Level of Care Code 08705 SUB INP/OBS CARE 2MIN Diagnoses Cardiomyopathy I42.9 Paroxysmal atrial fibrillation I48.0 LBBB (left bundle branch block) I44.7 Biventricular ICD (implantable cardioverter-defibrillator) in place Z95.810
[2023-12-20] MEDS: POTASSIUM CHLORIDE / WTR 10 MEQ/100 ML PLCT IV SCH (11:15)
[2023-12-20] MEDS: MAGNESIUM SULFATE / D5W 1 GM/100 ML BAG IV SCH (11:15)
[2023-12-20] MEDS: AMIODARONE 200 MG TAB PO SCH (12:07)
[2023-12-20] MEDS: POTASSIUM CHLORIDE CRTAB 20 MEQ TABCR PO STA (15:29)
[2023-12-20] MEDS: SODIUM CHLORIDE 0.9% 250 ML IV ONE (18:54)
[2023-12-21 06:29] LABS: Basophils # (auto) 0.03 K/uL (0.00-0.20); Basophils % (auto) 0.5 %; Eosinophils # (auto) 0.24 K/uL (0.00-0.50); Eosinophils % (auto) 3.8 %; Hematocrit (blood only) 28.7 % (37.0-47.0); Hemoglobin 9.5 g/dl (12.0-16.0); Immature Granulocytes # (auto) 0.02 K/uL (0.01-0.20); Immature Granulocytes % (auto) 0.3 %; Lymphocytes # (auto) 1.42 K/uL (1.20-3.40); Lymphocytes % (auto) 22.6 %; Mean Corpuscular Hgb Conc 33.1 g/dL (32.0-36.0); Mean Corpuscular Volume 90.5 fL (80.0-100.0); Mean Platelet Volume 11.4 fL (9.4-12.4); Monocytes # (auto) 0.76 K/uL (0.11-0.59); Monocytes % (auto) 12.1 %; Neutrophils % (auto) 60.7 %; Platelet Count 150 K/uL (130-400); RDW Coefficient of Variation 14.9 % (11.5-14.5); RDW Standard Deviation 49.5 fL (36.4-46.3); Red Blood Count 3.17 M/uL (4.20-5.40); White Blood Count 6.27 K/ul (4.8-10.8)
[2023-12-21 07:12] LABS: Albumin Globulin Ratio 1.3 (0.9-2); BUN Creatinine Ratio 18.2 (10-20); Calcium 8.2 mg/dl (8.6-10.3); Creatinine Clr Calc Pharmacy 47.9 ml/min; Est GFR (African American) 60.2 ml/min; Globulin 2.3 gm/dl (2.5-4.0); Potassium 3.5 mmol/L (3.5-5.1); Total Protein 5.3 gm/dl (6.0-8.3)
--- NOTE | 2023-12-21 07:53 | Hospitalist Progress Note ---
Date of Service December 21, 2023 Assessment & Plan (1) Encephalopathy due to infection: Plan: Other episodes of unexplained loss of consciousness in the past (March 2023 admission ultimately suspected to be orthostasis +/- UTI). ICD/pacemaker MRI incompatible - but low suspicion of stroke given alternative etiology with non unilateral or specific neurological findings. Suspect this time due to hypotension in setting of dehydration and UTI/diverticulitis Significantly improved mental status daily since admission -- did have a little confusion this morning 12/[address] but knew year/in hospital, answering questions appropriately. --> per , had been down for ~20hours prior to admission, ck minimal elevation on admission PT/OT - likely to need further rehabilitation on discharge since she was admitted from [facility] while getting acute rehab --> per , [facility] to [facility] Episode of vtach overnight 12/19-12/20, 15 beats --> amio converted to PO and metoprolol 25mg daily (in place of carvedilol at home) Some hypotension reported last evening 12/21, s/p 250nss bolus. BP 109/82 this morning and presently 120/76 Patient alert to person/place/year during encounter but did have assisted fall when attempting to get up out of bed this afternoon. Did well standing initially but w/ walking reported her legs giving out --> Per discussion w/ family at bedside has been essentially in bed for past 5 weeks between hospitals and not getting great care/therapy at [facility] and would like to consider different options. Called CM to discuss, will need f/u in the AM/additional referrals (2) Paroxysmal atrial fibrillation: Plan: Restarted Eliquis Wide complex irregular rhythm on monitor suspected to be a. fib with aberrant conduction Discussed care with Dr Reynolds and started on amiodarone as she has been in a. fib for the last few months on pacemaker check --> remains in afib/paced. Did have 15 beat run vtach overnight 12/19-12/20 and metoprolol 25mg started daily and no further issues Remains on eliquis BID Amiodarone converted to PO, continued Continued telemetry monitoring -rates controlled 60-70s at present time Monitor mag/K -- now replete (3) Acute UTI: Plan: Follow up blood cultures remain NGTD Urine w/ ecoli x2, zosyn switched to Ceftriaxone to complete course Miller in place at present time and continues -- PT/OT consults pending (4) Acute diverticulitis: Plan: Noted on CT. Advance to full liquids today. IV Zosyn. Continue IV LR @ 80ml/hr - stop after 3L. Switched abx to Ceftriaxone/Flagyl IV given bcx negative after 48 hours (also notes stercoral proctitis on initial CTAP?) Diet advanced to LOW FIBER for 12/20 given no reported abdominal pain and requesting upgraded diet and has been eating 70-90% of meals w/ good appetite and NO pain Continue to monitor (5) SARS-CoV-2 positive: Plan: No specific COVID symptoms with observation of the last fews days and on questioning patient today. Test suspected to still be positive from October - COVID precautions can be removed at this time. occasional dry cough, remains 98% on RA. afebrile (6) MARIIA (acute kidney injury): Plan: Cr to 2.02 on admit w/ normal baseline, resolving w/ IVF which have been stopped at present time No post obstructive cause on CT Cr to 0.99 on AM labs, BP stable and will continue to hold her lasix/losartan/entresto for now as does NOT appear to be in any significant volume overload and was given additional 250cc bolus overnight for borderline BPs --> Carvedilol switched to metoprolol for afib as above Renal dose meds/avoid nephrotoxins BMP in AM (7) Thiamine deficiency: Plan: Noted on prior labs from March 2023. Given underlying dementia and current encephalopathy unable to rule out Wernicke's-Korsakoffs encephalopathy. Level repeated although unclear if this was from labs prior to IV thiamine Provided 500mg q8h initially, changed to 200mg IV daily for now B1 level pending however unclear if this was from labs prior to IV thiamine and can continue once daily empiric PO at dc (8) Biventricular ICD (implantable cardioverter-defibrillator) in place: Plan: Currently in atrial fibrillation, amiodarone/metoprolol/eliquis as above (9) Cardiomyopathy, nonischemic: Plan: LVEF 40-45% in October with moderate diffuse hypokinesis. Monitor closely for worsening respiratory status. Hold losartan/Entresto while in MARIIA - usually on Entresto but unknown why she was switched to losartan when she went to [facility] ?availability. -Should not be on entresto + losartan Monitor I&Os *Of note, dc summary from [facility] from 11/11/23 has listed NaCl 1gm tablet daily on home med list however we did not have that in the past?? Will need to discuss w/ /patient to clarify during repeat encounter-- family at bedside 12/21 stated she was on PO salt tablets. Discussed would avoid for now and monitor but likely reason for needing to add the oral lasix as well which remains on hold (10) Hypokalemia: Plan: K 3.0, diuretics remain on hold. suspect due to limited PO inake/liquid diet Ordered PO/IV replacement, diet advanced Mag checked (also due to her afib) --> 1.6, IV replacement ordered and repeat 2.0. K 3.5 and additional 20meq x 1 ordered to keep K closer to 2 Monitoring labs in AM for stability (11) Hypomagnesemia: Plan: low, Iv replacement as above -- repeat wnl at 2.0 (12) Acute dehydration: Plan: improving, diuretics remaining on hold-- improvement in PO intake since advancement of diet (13) Acute hypotension: Plan: BPs improving at present time, 111/73, no futher IVF ordered. diuretics on hold/diet advanced as above and will monitor ability/need to resume home meds as able Plan VTE Prophylaxis - Eliquis Diet - full liquid advanced to low fiber Continued inpatient stay, PT/OT consults pending (bed hold at [facility]) --> family at bedside [facility]/not getting patient out of bed for weeks and would like to consider different options. Cm to f/u in AM Friday Admission and Anticipated Discharge Date Admission Date: December 17, 2023 Supervising Physician Co-Signing Physician Notes The patient was not seen by me. The chart was reviewed. Case discussed with PIERCE Dillard. Agree with assessment and plan Subjective Eval after lunch, ate about 70-80% of meal. Was attempted to get out of bed and did well initially standing but when taking a step her legs gave out and assisted fall to ground. No injury/hit her head. She is alert/oriented. Family at bedside reporting they do not believe she should return to [facility] as therapy there would ask "do you want to get out of bed today?" and when Kathrin would say no they would leave. Essentially reporting she has been pretty much in bed for the past 5 weeks. Other brother to come to visit this afternoon. Good appetite, no abdominal pain. No breathing difficulty/chest pain. No lightheaded/dizziness reported prior to the fall. Miller remains w/ concentrated urine and diuretics remain on hold. BP 120s/60s following fall, rates in 60-70s. Questions/concerns addressed at this time. Physical Exam Physical Exam: 83yo female, chronically ill appearing s itting up in bed, family at bedside, NAD and just finished lunch but did have assisted fall to ground when attempting to walk, no trauma appreciated head atraumatic, normocephalic, picking at teeth from lunch, trachea midline Resp: even/unlabored, slightly diminished in the bases but no w/c/r, on room air CV: irregularly irregular/paced, +systolic murmur, no pitting edema/calf tenderness GI: +BS, soft/NONTENDER : miller draining concentrated urine MSK/Neuro: generalized weakness but nonfocal, follows commands, strength equal dorsiflexion/plantar flexion but decreased overall Psych: alert to person/place/year, cooperative with exam Results & Data Results & Data Vital Signs (Past 12 Hours) Vital Signs Temp Pulse Pulse Resp BP Pulse Ox O2 Del Method 12/21/23 07:08 36.7 C 80 18 109/82 97 Room Air 12/21/23 03:53 36.4 C L 79 18 100/67 97 Room Air 12/20/23 23:16 78 12/20/23 22:25 36.7 C 77 20 100/69 94 Room Air 12/20/23 22:14 Room Air Laboratory Results 12/21/23 12/20/23 Range/Units 05:41 07:19 WBC 6.27 (4.8-10.8) K/ul RBC 3.17 L (4.20-5.40) M/uL Hgb 9.5 L (12.0-16.0) g/dl Hct 28.7 L (37.0-47.0) % MCV 90.5 (80.0-100.0) fL MCH 30.0 (25.0-34.0) pg MCHC 33.1 (32.0-36.0) g/dL RDW Std Deviation 49.5 H (36.4-46.3) fL RDW Coeff of Morgan 14.9 H (11.5-14.5) % Plt Count 150 (130-400) K/uL MPV 11.4 (9.4-12.4) fL Immature Gran % (Auto) 0.3 % Neut % (Auto) 60.7 % Lymph % (Auto) 22.6 % [place] % (Auto) 12.1 % Eos % (Auto) 3.8 % Baso % (Auto) 0.5 % Neut # (Auto) 3.80 (1.40-6.50) K/uL Lymph # (Auto) 1.42 (1.20-3.40) K/uL [place] # (Auto) 0.76 H (0.11-0.59) K/uL Eos # (Auto) 0.24 (0.00-0.50) K/uL Baso # (Auto) 0.03 (0.00-0.20) K/uL Immature Gran # (Auto) 0.02 (0.01-0.20) K/uL Sodium 134 L 137 (136-145) mmol/L Potassium 3.5 3.0 L (3.5-5.1) mmol/L Chloride 103 104 (98-107) mmol/L Carbon Dioxide 25 25 (21-32) mmol/L Anion Gap 6 8 (3-11) BUN 18 20 (6-23) mg/dl Creatinine 0.99 1.08 D (0.6-1.2) mg/dl Est Cr Clr Drug Dosing 47.9 43.2 ml/min Est GFR ( Amer) 60.2 54.2 ml/min Est GFR (Non-Af Amer) 52.0 46.8 ml/min BUN/Creatinine Ratio 18.2 18.5 (10-20) Glucose 87 92 (70-99(Fasting)) mg/dl Calcium 8.2 L 8.4 L (8.6-10.3) mg/dl Magnesium 2.0 1.6 L (1.7-2.4) mg/dl Total Bilirubin 1.0 (0.2-1.0) mg/dl AST 28 (13-39) U/L ALT 25 (7-52) U/L Alkaline Phosphatase 40 (34-104) U/L Total Protein 5.3 L (6.0-8.3) gm/dl Albumin 3.0 L (3.4-5.0) gm/dl Globulin 2.3 L (2.5-4.0) gm/dl Albumin/Globulin Ratio 1.3 (0.9-2) PG Care Time/CCT Total # of Minutes Spent Total Time Spent with Patient: Total time spent is greater than 50% in coordination of care (as documented) at patient's floor/unit and/or counseling patient: Coding Level of Care Code 13188 SUB INP/OBS CARE 3/50MIN Diagnoses Encephalopathy due to infection G93.49; B99.9 Paroxysmal atrial fibrillation I48.0 Acute UTI N39.0 Acute diverticulitis K57.92 SARS-CoV-2 positive U07.1 MARIIA (acute kidney injury) N17.9 Thiamine deficiency E51.9 Biventricular ICD (implantable cardioverter-defibrillator) in place Z95.810 Cardiomyopathy, nonischemic I42.8 Hypokalemia E87.6 Hypomagnesemia E83.42 Acute dehydration E86.0 Acute hypotension I95.9
[2023-12-21] MEDS: METOPROLOL SUCC 25MG EXT REL TAB PO SCH (08:48)
[2023-12-21] MEDS: POTASSIUM CHLORIDE CRTAB 20 MEQ TABCR PO STA (08:51)
--- NOTE | 2023-12-22 08:04 | Hospitalist Progress Note ---
Date of Service December 22, 2023 Assessment & Plan (1) Encephalopathy due to infection: Plan: Other episodes of unexplained loss of consciousness in the past (March 2023 admission ultimately suspected to be orthostasis +/- UTI). ICD/pacemaker MRI incompatible - but low suspicion of stroke given alternative etiology with non unilateral or specific neurological findings. Suspect this time due to hypotension in setting of dehydration and UTI/diverticulitis Significantly improved mental status daily since admission -- did have a little confusion this morning 12/[address] but knew year/in hospital, answering questions appropriately. --> per , had been down for ~20hours prior to admission, ck minimal elevation on admission PT/OT - likely to need further rehabilitation on discharge since she was admitted from [facility] while getting acute rehab --> per , would like to return back to [facility] when able Episode of vtach overnight 12/19-12/20, 15 beats --> amio converted to PO and metoprolol 25mg daily (in place of carvedilol at home) Some hypotension reported last evening 12/21, s/p 250nss bolus. BP 109/82 this morning and presently 120/76 Patient alert to person/place/year during encounter 12/21 but did have assisted fall when attempting to get up out of bed afternoon. Did well standing initially but w/ walking reported her legs giving out. No lightheaded/dizziness or alteration in mental status. BP at time 120s/70s. --> Per discussion w/ family at bedside has been essentially in bed for past 5 weeks between hospitals and not getting great care/therapy at [facility] and would like to consider different options. Called CM to discuss, will need f/u in the AM/additional referrals 12/22 Patient remaining alert/oriented to person, place, year. Tolerating low fiber diet and antibiotics. Remaining off her home diuretics and will continue to hold. BNP elevated but does not appear significantly volume overloaded at present and given BP will hold off. Suspect can at some point resume low dose entresto given improvement from prior echo to most recent but will monitor. F/u with cards in AM CM to discussed w/ patient and family about additional referrals other than [facility] (2) Paroxysmal atrial fibrillation: Plan: Restarted Eliquis Wide complex irregular rhythm on monitor suspected to be a. fib with aberrant conduction Discussed care with Dr Reynolds and started on amiodarone as she has been in a. fib for the last few months on pacemaker check Did have 15 beat run vtach overnight 12/19-12/20 , metoprolol 25mg PO started daily and remaining in afib/rates controlled Amiodarone PO from IV per Dr Reynolds. Consideration for cardioversion once loaded Continues on eliquid BID Ordered supplemental K/Mag to keep closer to 4/2 Continued telemetry monitoring - paced/afib in 60-70s, occasional PAC/PVC (3) Acute UTI: Plan: Follow up blood cultures remain NGTD Urine w/ ecoli x2, zosyn switched to Ceftriaxone to complete course Miller in place at present time and continues (patient reports she DOES NOT have miller at baseline -- will need to attempt to remove once PT/OT evals completed but see above regarding significant weakness/falls) (4) Acute diverticulitis: Plan: Noted on CT. Advance to full liquids today. IV Zosyn. Continue IV LR @ 80ml/hr - stop after 3L. Switched abx to Ceftriaxone/Flagyl IV given bcx negative after 48 hours (also notes stercoral proctitis on initial CTAP?) Diet advanced to LOW FIBER for 12/20 given no reported abdominal pain and requesting upgraded diet and has been eating 70-90% of meals w/ good appetite and NO pain Continue to monitor (5) SARS-CoV-2 positive: Plan: No specific COVID symptoms with observation of the last fews days and on questioning patient today. Test suspected to still be positive from October - COVID precautions can be removed at this time. occasional dry cough, remains 96% on RA. afebrile (6) MARIIA (acute kidney injury): Plan: Cr to 2.02 on admit w/ normal baseline, resolving w/ IVF which have been stopped at present time No post obstructive cause on CT Cr to 1.07 on AM labs, BP stable and will continue to hold her lasix/losartan/entresto for now as does NOT appear to be in any significant volume overload but appears possibly slightly wet today but would avoid diuretics for today and monitor for need for AM --> Carvedilol switched to metoprolol for afib as above Renal dose meds/avoid nephrotoxins BMP in AM (7) Thiamine deficiency: Plan: Noted on prior labs from March 2023. Given underlying dementia and current encephalopathy unable to rule out Wernicke's-Korsakoffs encephalopathy. Level repeated although unclear if this was from labs prior to IV thiamine Provided 500mg q8h initially, changed to 200mg IV daily for now B1 level pending however unclear if this was from labs prior to IV thiamine and can continue once daily empiric PO at dc (8) Biventricular ICD (implantable cardioverter-defibrillator) in place: Plan: Currently in atrial fibrillation, amiodarone/metoprolol/eliquis as above (9) Cardiomyopathy, nonischemic: Plan: LVEF 40-45% in October with moderate diffuse hypokinesis. Monitor closely for worsening respiratory status. Hold losartan/Entresto while in MARIIA - usually on Entresto but unknown why she was switched to losartan when she went to [facility] ?availability. -Should not be on entresto + losartan Monitor I&Os *Of note, dc summary from [facility] from 11/11/23 has listed NaCl 1gm tablet daily on home med list however we did not have that in the past?? Will need to discuss w/ /patient to clarify during repeat encounter-- family at bedside 12/21 stated she WAS on PO salt tablets. Discussed would avoid for now and monitor but likely reason for needing to add the oral lasix as well which remains on hold (10) Hypokalemia: Plan: K 3.0, diuretics remain on hold. suspect due to limited PO inake/liquid diet Ordered PO/IV replacement initially and diet advanced K improved but still low 3.4 and additional PO ordered for K 3.4 Mag checked (also due to her afib) --> LOW, replacement ordered and repeat improved 1.7 but additional 1gm IV to keep closer to 2 w/ underlying afib Monitoring labs in AM for stability (11) Hypomagnesemia: Plan: additional 1gm IV as above (12) Acute dehydration: Plan: improving, diuretics remaining on hold FOR NOW-- improvement in PO intake since advancement of diet and may consider starting back some of her prior medications as above (13) Acute hypotension: Plan: BPs improving/stable Did get additional 250cc NSS bolus overnight 12/20 and tolerating advancement of diet No lightheaded/dizziness reported Monitor Plan VTE Prophylaxis - Eliquis continued Tolerating low fiber diet, continues on IV abx. Consider switching to PO abx tomorrow to complete course PT/OT evals pending -- per discussion w/ family at bedside 12/21 had been in bed for past 4-5 weeks and not good care at [facility] and wanting to discuss further options. CM alerted and to f/u Admission and Anticipated Discharge Date Admission Date: December 17, 2023 Supervising Physician Co-Signing Physician Notes The patient was not seen by me. The chart was reviewed. Case discussed with PIERCE Dillard. Agree with assessment and plan Subjective Patient evaluated this afternoon following lunch. Tolerating advanced diet without issue, moving her bowels, no abdominal pain. Alert to person, [facility], year 2023. [facility] and CM to follow. Denies any issues with breathing, no shortness of breath. Rates stable on telemetry. BP 106/73. Questions/concerns addressed at this time. Physical Exam Physical Exam: 83yo female, chronically ill appearing s itting up in bed, covered up after lunch, NAD alert to person, place, year, not events prior to current admission when unresponsive head atraumatic, normocephalic, trachea midline Resp: even/unlabored, slightly diminished in the bases but no w/c/r, on room air CV: irregularly irregular/paced 70s on monitor, +systolic murmur, trace pedal edema, calves nontender GI: +BS, soft/NONTENDER : miller draining concentrated urine, slight blood tinged MSK/Neuro: generalized weakness but nonfocal, follows commands, strength equal dorsiflexion/plantar flexion but decreased overall Psych: alert to person/place/year, cooperative with exam Results & Data Results & Data Vital Signs (Past 12 Hours) Vital Signs Temp Pulse Resp BP Pulse Ox O2 Del Method 12/22/23 06:59 36.5 C 79 18 107/72 98 Room Air 12/22/23 03:10 36.7 C 76 18 107/73 97 Room Air 12/21/23 23:04 36.8 C 78 20 105/70 96 Room Air Laboratory Results 12/22/23 Range/Units 08:37 WBC 6.11 (4.8-10.8) K/ul RBC 3.18 L (4.20-5.40) M/uL Hgb 9.3 L (12.0-16.0) g/dl Hct 28.9 L (37.0-47.0) % MCV 90.9 (80.0-100.0) fL MCH 29.2 (25.0-34.0) pg MCHC 32.2 (32.0-36.0) g/dL RDW Std Deviation 50.9 H (36.4-46.3) fL RDW Coeff of Morgan 15.2 H (11.5-14.5) % Plt Count 153 (130-400) K/uL MPV 11.6 (9.4-12.4) fL Immature Gran % (Auto) 0.5 % Neut % (Auto) 57.6 % Lymph % (Auto) 25.4 % [place] % (Auto) 12.8 % Eos % (Auto) 3.4 % Baso % (Auto) 0.3 % Neut # (Auto) 3.52 (1.40-6.50) K/uL Lymph # (Auto) 1.55 (1.20-3.40) K/uL [place] # (Auto) 0.78 H (0.11-0.59) K/uL Eos # (Auto) 0.21 (0.00-0.50) K/uL Baso # (Auto) 0.02 (0.00-0.20) K/uL Immature Gran # (Auto) 0.03 (0.01-0.20) K/uL Sodium 134 L (136-145) mmol/L Potassium 3.4 L (3.5-5.1) mmol/L Chloride 105 (98-107) mmol/L Carbon Dioxide 23 (21-32) mmol/L Anion Gap 6 (3-11) BUN 15 (6-23) mg/dl Creatinine 1.07 (0.6-1.2) mg/dl Est Cr Clr Drug Dosing 44.1 ml/min Est GFR ( Amer) 54.8 ml/min Est GFR (Non-Af Amer) 47.3 ml/min BUN/Creatinine Ratio 14.0 (10-20) Glucose 129 H (70-99(Fasting)) mg/dl Calcium 8.2 L (8.6-10.3) mg/dl Magnesium 1.7 (1.7-2.4) mg/dl Total Bilirubin 0.8 (0.2-1.0) mg/dl AST 25 (13-39) U/L ALT 27 (7-52) U/L Alkaline Phosphatase 45 (34-104) U/L B-Natriuretic Peptide 520 H (0-100) pg/ml Total Protein 5.4 L (6.0-8.3) gm/dl Albumin 2.8 L (3.4-5.0) gm/dl Globulin 2.6 (2.5-4.0) gm/dl Albumin/Globulin Ratio 1.1 (0.9-2) Cortisol AM Sample 12.74 (6.2-22.6) mcg/dl PG Care Time/CCT Total # of Minutes Spent Total Time Spent with Patient: Total time spent is greater than 50% in coordination of care (as documented) at patient's floor/unit and/or counseling patient: Coding Level of Care Code 05026 SUB INP/OBS CARE 3/50MIN Diagnoses Encephalopathy due to infection G93.49; B99.9 Paroxysmal atrial fibrillation I48.0 Acute UTI N39.0 Acute diverticulitis K57.92 SARS-CoV-2 positive U07.1 MARIIA (acute kidney injury) N17.9 Thiamine deficiency E51.9 Biventricular ICD (implantable cardioverter-defibrillator) in place Z95.810 Cardiomyopathy, nonischemic I42.8 Hypokalemia E87.6 Hypomagnesemia E83.42 Acute dehydration E86.0 Acute hypotension I95.9
[2023-12-22 09:12] LABS: Basophils # (auto) 0.02 K/uL (0.00-0.20); Basophils % (auto) 0.3 %; Eosinophils # (auto) 0.21 K/uL (0.00-0.50); Eosinophils % (auto) 3.4 %; Hematocrit (blood only) 28.9 % (37.0-47.0); Hemoglobin 9.3 g/dl (12.0-16.0); Immature Granulocytes # (auto) 0.03 K/uL (0.01-0.20); Immature Granulocytes % (auto) 0.5 %; Lymphocytes # (auto) 1.55 K/uL (1.20-3.40); Lymphocytes % (auto) 25.4 %; Mean Corpuscular Hemoglobin 29.2 pg (25.0-34.0); Mean Corpuscular Hgb Conc 32.2 g/dL (32.0-36.0); Mean Corpuscular Volume 90.9 fL (80.0-100.0); Mean Platelet Volume 11.6 fL (9.4-12.4); Monocytes # (auto) 0.78 K/uL (0.11-0.59); Monocytes % (auto) 12.8 %; Neutrophils # (auto) 3.52 K/uL (1.40-6.50); Neutrophils % (auto) 57.6 %; Platelet Count 153 K/uL (130-400); RDW Coefficient of Variation 15.2 % (11.5-14.5); RDW Standard Deviation 50.9 fL (36.4-46.3); Red Blood Count 3.18 M/uL (4.20-5.40); White Blood Count 6.11 K/ul (4.8-10.8)
[2023-12-22 09:23] LABS: Albumin Globulin Ratio 1.1 (0.9-2); Albumin Level 2.8 gm/dl (3.4-5.0); Bilirubin,Total 0.8 mg/dl (0.2-1.0); Calcium 8.2 mg/dl (8.6-10.3); Creatinine Clr Calc Pharmacy 44.1 ml/min; Est GFR (African American) 54.8 ml/min; Est GFR (Non-African American) 47.3 ml/min; Globulin 2.6 gm/dl (2.5-4.0); Magnesium 1.7 mg/dl (1.7-2.4); Potassium 3.4 mmol/L (3.5-5.1); Total Protein 5.4 gm/dl (6.0-8.3)
[2023-12-22] MEDS: MAGNESIUM SULFATE / D5W 1 GM/100 ML BAG IV ONE (12:08)
[2023-12-22] MEDS: POTASSIUM CHLORIDE CRTAB 20 MEQ TABCR PO STA (12:08)
[2023-12-23 07:29] LABS: Hematocrit (blood only) 27.8 % (37.0-47.0); Hemoglobin 8.9 g/dl (12.0-16.0); Mean Corpuscular Hemoglobin 29.8 pg (25.0-34.0); Mean Platelet Volume 11.3 fL (9.4-12.4); Platelet Count 145 K/uL (130-400); RDW Coefficient of Variation 15.4 % (11.5-14.5); RDW Standard Deviation 52.4 fL (36.4-46.3); Red Blood Count 2.99 M/uL (4.20-5.40); White Blood Count 5.72 K/ul (4.8-10.8)
[2023-12-23 07:42] LABS: Est GFR (African American) 68.5 ml/min; Est GFR (Non-African American) 59.1 ml/min; Potassium 3.9 mmol/L (3.5-5.1)
[2023-12-23 07:43] LABS: BUN Creatinine Ratio 12.4 (10-20); Calcium 8.1 mg/dl (8.6-10.3); Creatinine Clr Calc Pharmacy 53.5 ml/min; Magnesium 1.8 mg/dl (1.7-2.4)
--- NOTE | 2023-12-23 16:32 | Hospitalist Progress Note ---
Date of Service December 23, 2023 Assessment & Plan (1) Encephalopathy due to infection: Plan: Other episodes of unexplained loss of consciousness in the past (March 2023 admission ultimately suspected to be orthostasis +/- UTI). ICD/pacemaker MRI incompatible - but low suspicion of stroke given alternative etiology with non unilateral or specific neurological findings. Suspect this time due to hypotension in setting of dehydration and UTI/diverticulitis Significantly improved mental status daily since admission Has baseline dementia (2) Paroxysmal atrial fibrillation: Plan: Rate controlled Continue Eliquis Wide complex irregular rhythm on monitor suspected to be a. fib with aberrant conduction Discussed care with Dr Reynolds and started on amiodarone as she has been in a. fib for the last few months on pacemaker check Did have 15 beat run vtach overnight 12/19-12/20 , metoprolol 25mg PO started daily and remaining in afib/rates controlled Consideration for cardioversion once loaded with amiodarone-can be done as an outpatient Follow-up with cardiology as an outpatient (3) Acute UTI: Plan: Follow up blood cultures remain NGTD Urine w/ ecoli x2, zosyn switched to Ceftriaxone to complete course Miller in place at present time and continues (patient reports she DOES NOT have miller at baseline -- will need to attempt to remove once PT/OT evals completed but see above regarding significant weakness/falls) (4) Acute diverticulitis: Plan: Noted on CT abdomen/pelvis on admission Improved, tolerating regular diet and moving bowels, no abdominal pain No fevers or leukocytosis Continue ceftriaxone/Flagyl IV also notes stercoral proctitis on initial CTAP but is moving bowels Recommend colonoscopy in 6 to 8 weeks as an outpatient if desired (5) SARS-CoV-2 positive: Plan: No signs or symptoms of COVID Test suspected to still be positive from October - COVID precautions have since been removed (6) MARIIA (acute kidney injury): Plan: Cr to 2.02 on admit w/ normal baseline, resolved w/ IVF No post obstructive cause on CT continue to hold her lasix/losartan/entresto for now as does NOT appear to be in any significant volume overload Carvedilol switched to metoprolol for afib as above to avoid hypotension Renal dose meds/avoid nephrotoxins BMP in AM (7) Thiamine deficiency: Plan: Noted on prior labs from March 2023. Given underlying dementia and current encephalopathy unable to rule out Wernicke's-Korsakoffs encephalopathy. Level repeated although unclear if this was from labs prior to IV thiamine Provided 500mg q8h initially, changed to 200mg IV daily for now can continue once daily empiric PO at dc (8) Biventricular ICD (implantable cardioverter-defibrillator) in place: Plan: Currently in atrial fibrillation, amiodarone/metoprolol/eliquis as above (9) Cardiomyopathy, nonischemic: Plan: LVEF 40-45% in October with moderate diffuse hypokinesis. Monitor closely for worsening respiratory status. Continue to hold Entresto- usually on Entresto but unknown why she was switched to losartan when she went to [facility] possibly due to formulary? Monitor I&Os Avoid salt tablets on previously Continue Toprol-XL (10) Hypokalemia: Plan: Resolved with repletion (11) Hypomagnesemia: Plan: Resolved with repletion (12) Acute hypotension: Plan: Hypotension on admission, now resolved with fluid boluses and holding losartan, change carvedilol to metoprolol (13) Anemia: Plan: Hemoglobin 8.9, normocytic. Baseline hemoglobin around 11 Could be somewhat dilutional from receiving IV fluids, but also noted to have a small acute retroperitoneal hematoma on CT abdomen/pelvis Check iron studies, folate Recent B12 was normal and TSH here is normal Follow CBC especially as on Eliquis in the setting of RP hematoma Plan VTE Prophylaxis - Eliquis Disposition-continued stay but can discharge to SNF when available. Referral made to [facility] as patient and family choose to not go back to [facility] Admission and Anticipated Discharge Date Admission Date: December 17, 2023 Subjective Patient denies abdominal pain she is eating and moving her bowels. She has no complaints. She is pleasantly confused. Telemetry with atrial fibrillation with normal rates in the 70s to 80s, paced rhythm and PVCs Physical Exam Constitutional: WD/WN, vitals as above Respiratory: normal respiratory effort, lungs clear to auscultation Cardiovascular: RRR, no murmur, no edema Gastrointestinal (Abdomen): normal bowel sounds, soft, nontender, no hepatosplenomegaly Psychiatric: Orientation: alert, oriented to person and cooperative Results & Data Results & Data Vital Signs (Past 12 Hours) Vital Signs Temp Pulse Pulse Resp BP BP Pulse Ox 12/23/23 15:38 36.4 C L 79 18 107/72 96 12/23/23 14:59 80 12/23/23 10:58 36.4 C L 78 18 107/72 97 12/23/23 10:41 88/49 L 12/23/23 09:05 90 100/66 12/23/23 08:00 76 12/23/23 07:42 36.3 C L 84 16 159/93 H 98 O2 Del Method 12/23/23 15:38 Room Air 12/23/23 14:59 12/23/23 10:58 Room Air 12/23/23 10:41 12/23/23 09:05 12/23/23 08:00 12/23/23 07:42 Room Air Laboratory Results CBC, BMP, magnesium reviewed PG Care Time/CCT Total # of Minutes Spent Total Time Spent with Patient: Total time spent is greater than 50% in coordination of care (as documented) at patient's floor/unit and/or counseling patient: Coding Level of Care Code 12064 SUB INP/OBS CARE 3/50MIN Diagnoses Encephalopathy due to infection G93.49; B99.9 Paroxysmal atrial fibrillation I48.0 Acute UTI N39.0 Acute diverticulitis K57.92 SARS-CoV-2 positive U07.1 MARIIA (acute kidney injury) N17.9 Thiamine deficiency E51.9 Biventricular ICD (implantable cardioverter-defibrillator) in place Z95.810 Cardiomyopathy, nonischemic I42.8 Hypokalemia E87.6 Hypomagnesemia E83.42 Acute hypotension I95.9 Anemia D64.9
[2023-12-24 08:21] LABS: Basophils # (auto) 0.03 K/uL (0.00-0.20); Basophils % (auto) 0.5 %; Eosinophils # (auto) 0.24 K/uL (0.00-0.50); Eosinophils % (auto) 3.9 %; Hematocrit (blood only) 31.3 % (37.0-47.0); Immature Granulocytes # (auto) 0.03 K/uL (0.01-0.20); Immature Granulocytes % (auto) 0.5 %; Lymphocytes # (auto) 1.64 K/uL (1.20-3.40); Lymphocytes % (auto) 26.8 %; Mean Corpuscular Hgb Conc 31.9 g/dL (32.0-36.0); Mean Platelet Volume 10.8 fL (9.4-12.4); Monocytes # (auto) 0.75 K/uL (0.11-0.59); Monocytes % (auto) 12.2 %; Neutrophils # (auto) 3.44 K/uL (1.40-6.50); Neutrophils % (auto) 56.1 %; Platelet Count 177 K/uL (130-400); RDW Coefficient of Variation 15.6 % (11.5-14.5); RDW Standard Deviation 53.5 fL (36.4-46.3); Red Blood Count 3.33 M/uL (4.20-5.40); White Blood Count 6.13 K/ul (4.8-10.8)
[2023-12-24 08:40] LABS: Albumin Globulin Ratio 1.2 (0.9-2); BUN Creatinine Ratio 11.3 (10-20); Bilirubin,Total 0.7 mg/dl (0.2-1.0); Calcium 8.4 mg/dl (8.6-10.3); Creatinine Clr Calc Pharmacy 59.7 ml/min; Est GFR (African American) 77.9 ml/min; Est GFR (Non-African American) 67.2 ml/min; Globulin 2.5 gm/dl (2.5-4.0); Magnesium 1.8 mg/dl (1.7-2.4); Total Protein 5.5 gm/dl (6.0-8.3)
[2023-12-24 08:59] LABS: Ferritin 167.1 ng/ml (8-388)
--- NOTE | 2023-12-24 14:25 | Discharge Summary ---
Discharge Summary Date of Service December 24, 2023 Notes For Next Care Provider Check CBC, BMP in 1 week Follow up with Cardiology within 2 weeks Needs colonoscopy in 6-8 weeks Medication Changes From Visit STOPPED Coreg, losartan, potassium chloride, salt tablets Started Toprol XL 25mg po daily Started amiodarone 400mg po daily Reduced lasix to 20mg po daily prn edema Added Augmentin 875/125mg po bid x 3 more doses Admission HPI Per Admitting Provider Kathrin Carrillo is an 83 year old female who presents to the ER with decreased responsiveness. Unable to get any history from the patient due to decreased responsiveness. She opens eyes to voice, withdraws from pain and making incomprehensible sounds. She is currently in [facility] for rehabilitation following recent hospitalizations here in October for congestive heart failure and COVID-19 then suspected COPD exacerbation in [place]. At baseline she has underlying dementia but able to hold full conversations. Recent hospitalizations have reduced her mobility but her baseline is walking with a stick. Reportedly she was well this morning taking her morning medications. Around noon when her came in to visit her he found her slumped over in a chair in the lounge with decreased responsiveness. He notes she has a history of syncopal episodes especially in the settings of infections. Notably was admitted here in March 2023 with syncopal episodes in the setting of UTI. He notes the last few days she has just been complaining of being thirsty as she is on a fluid restriction but otherwise no complaints. Entresto was switched to losartan by [facility] per EMR although unclear reasons for this and her was unaware of this change. Principal Dx & Hospital Course #1 = Principal Diagnosis (1) Encephalopathy due to infection: Other episodes of unexplained loss of consciousness in the past (March 2023 admission ultimately suspected to be orthostasis +/- UTI). ICD/pacemaker MRI incompatible - but low suspicion of stroke given alternative etiology with non unilateral or specific neurological findings. Suspect this time due to hypotension in setting of dehydration and UTI/diverticulitis Significantly improved mental status daily since admission Has baseline dementia (2) Paroxysmal atrial fibrillation: Rate controlled Continue Eliquis Wide complex irregular rhythm on monitor suspected to be a. fib with aberrant conduction Discussed care with Dr Reynolds and started on amiodarone as she has been in a. fib for the last few months on pacemaker check Did have 15 beat run vtach overnight 12/19-12/20 , metoprolol 25mg PO started daily and remaining in afib/rates controlled Consideration for cardioversion once loaded with amiodarone-can be done as an outpatient Follow-up with cardiology as an outpatient (3) Acute UTI: blood cultures remain NGTD Urine w/ ecoli x2, zosyn switched to Ceftriaxone to complete course Squires removed (4) Acute diverticulitis: Noted on CT abdomen/pelvis on admission Improved, tolerating regular diet and moving bowels, no abdominal pain No fevers or leukocytosis Received ceftriaxone/Flagyl IV and complete 10 day course with 2 more days of Augmentin 875mg po bid also notes stercoral proctitis on initial CTAP but is moving bowels Recommend colonoscopy in 6 to 8 weeks as an outpatient if desired low fiber diet x 2 weeks (5) SARS-CoV-2 positive: No signs or symptoms of COVID Test suspected to still be positive from October - COVID precautions have since been removed (6) MARIIA (acute kidney injury): Cr to 2.02 on admit w/ normal baseline, resolved w/ IVF No post obstructive cause on CT held her lasix/losartan and renal function normal Carvedilol switched to metoprolol for afib as above to avoid hypotension Renal dose meds/avoid nephrotoxins BMP in 1 week Made lasix 20mg daily prn edema rather than 20mg bid dc home po KCl can resume losartan vs Entresto with Cardiology as outpt if desired but low BPs limit this (7) Thiamine deficiency: Noted on prior labs from March 2023. Given underlying dementia and current encephalopathy unable to rule out Wernicke's-Korsakoffs encephalopathy. Level repeated although unclear if this was from labs prior to IV thiamine Provided 500mg q8h initially, changed to 200mg IV daily for now can continue once daily empiric PO at dc with 200mg daily B1 level pending at time of discharge (8) Biventricular ICD (implantable cardioverter-defibrillator) in place: Currently in atrial fibrillation, amiodarone/metoprolol/eliquis as above (9) Cardiomyopathy, nonischemic: LVEF 40-45% in October with moderate diffuse hypokinesis. Monitor closely for worsening respiratory status. Continue to hold Entresto- usually on Entresto but unknown why she was switched to losartan when she went to [facility] possibly due to formulary? Monitor I&Os Avoid salt tablets on previously Continue Toprol-XL (10) Hypokalemia: Resolved with repletion (11) Hypomagnesemia: Resolved with repletion (12) Acute hypotension: Hypotension on admission, now resolved with fluid boluses and holding losartan, change carvedilol to metoprolol (13) Anemia: Hemoglobin 8.9-10, normocytic. Baseline hemoglobin around 11 Could be somewhat dilutional from receiving IV fluids, but also noted to have a small acute retroperitoneal hematoma on CT abdomen/pelvis Checked iron studies, folate-all normal Recent B12 was normal and TSH here is normal Follow CBC especially as on Eliquis in the setting of RP hematoma--> stable to improved by discharge--> follow CBC in 1 week Plan VTE Prophylaxis - Eliquis Disposition-dc to [facility] discussed care with at bedside on 12/24 Discharge Exam Constitutional WD/WN, vitals as above Respiratory normal respiratory effort, lungs clear to auscultation Cardiovascular RRR, no murmur, no edema Gastrointestinal (Abdomen) normal bowel sounds, soft, nontender, no hepatosplenomegaly Psychiatric A+Ox3, euthymic affect Updated Medication List Medication Instructions Recorded Confirmed Type sodium chloride 1,000 mg soluble 2,000 mg PO TID 05/22/23 12/17/23 History tablet apixaban 5 mg tablet (Eliquis) 5 mg PO BID #180 tabs 09/24/23 12/17/23 Rx acetaminophen 325 mg tablet 650 mg PO Q6H PRN PAIN/FEVER >101 12/17/23 12/17/23 History (Tylenol) carvedilol 25 mg tablet 25 mg PO BID 12/17/23 12/17/23 History cholecalciferol (vitamin D3) 25 25 mcg PO DAILY 12/17/23 12/17/23 History mcg (1,000 unit) capsule (Vitamin D3) furosemide 20 mg tablet (Lasix) 20 mg PO BID edema 12/17/23 12/17/23 History losartan 25 mg tablet 25 mg PO BID 12/17/23 12/17/23 History multivitamin with minerals 1 tab PO DAILY 12/17/23 12/17/23 History potassium chloride 20 mEq 40 meq PO DAILY 12/17/23 12/17/23 History tablet,extended release vitamin E 268 mg (400 unit) capsule 268 mg PO 3XWK 12/17/23 12/17/23 History amiodarone 200 mg tablet 400 mg (2 x 200 mg) PO DAILY #60 12/24/23 Rx tabs amoxicillin 875 mg-potassium 1 tab PO BID #3 tabs 12/24/23 Rx clavulanate 125 mg tablet metoprolol succinate 25 mg 25 mg PO QAM #30 tabs 12/24/23 Rx tablet,extended release 24 hr thiamine HCl (vitamin B1) 100 mg 200 mg (2 x 100 mg) PO QAM #60 tabs 12/24/23 Rx tablet Hospital Stay Data Consultations 12/17/23 14:13 ED Decision to Admit Stat 12/18/23 22:42 Consult Cardiology Routine Diagnostic Imagining Performed 12/17/23 13:24 CT angio head w con Stat CT angio neck with con Stat CT head/brain wo con Stat 12/17/23 15:04 CT Abd and Pelvis [CT abd pelvis wo con] Stat Pending Results Patient Have Any Pending Studies at Discharge: No Discharge Instructions Given to Patient (Per Discharging Provider) Please finish out 2 more days of antibiotics for your diverticulitis and continue a low fiber diet for 2 more weeks. You should have a colonoscopy in 6-8 weeks for follow up if you desire. For your atrial fibrillation, you were started on amiodarone to convert this to a normal rhythm. Please continue this and follow up with your Compliance Vice President for a possible electrical cardioversion as an outpatient. You were also treated for a UTI. You were dehydrated and had kidney injury and low blood pressures-your losartan was STOPPED for now. Your Compliance Vice President may want to restart you on Entresto or losartan again in the future. Your lasix was reduced to 20mg once daily as needed. Your carvedilol was STOPPED and replaced with Toprol XL at a low dose. Please check a CBC and BMP in 1 week. You are very weak and need PT and OT to get strong again so you can return home. Total Time Total Time Spent Total Time Spent (In Minutes): 40 min Coding Level of Care Code 90461 INP/OBS DISCH >30 MIN Diagnoses Encephalopathy due to infection G93.49; B99.9 Paroxysmal atrial fibrillation I48.0 Acute UTI N39.0 Acute diverticulitis K57.92 SARS-CoV-2 positive U07.1 MARIIA (acute kidney injury) N17.9 Thiamine deficiency E51.9 Biventricular ICD (implantable cardioverter-defibrillator) in place Z95.810 Cardiomyopathy, nonischemic I42.8 Hypokalemia E87.6 Hypomagnesemia E83.42 Acute hypotension I95.9 Anemia D64.9
[2023-12-25] MEDS ORDERED: THIAMINE HCL 100 MG TAB PO SCH (09:00)
--- NOTE | 2023-12-26 11:47 | Coding Query ---
SEPSIS To promote full compliance with coding requirements relating to patient care, physician participation is requested in all cases of surgical coder uncertainty. Please assist us with the question(s) below: In responding to this query, please exercise your independent professional judgement. The fact that a question is asked does not imply that any particular answer is desired or expected. We appreciate your clarification on this issue. Throughout the medical record, you have clearly documented a localized infection and your patient has clinical evidence of a generalized sepsis or severe sepsis. If the patient has sepsis, severe sepsis, from an urinary source or some other source, please clarify in your response below. The medical record reflects the following clinical findings: --Encephalopathy due to infection --UTI due to E. Coli --Hypotension --Acute Kidney Injury --Decreased responsiveness/GCS 9 ____ () Severe Sepsis due to E. coli () Present on Admission () Not present on admission () Unable to clinically determine () Severe Sepsis due to COVID-19 () Present on Admission () Not present on admission () Unable to clinically determine () Severe Sepsis due to unspecified organism () Present on Admission () Not present on admission () Unable to clinically determine (X) UTI due to E. coli (no sepsis) () Present on Admission () Not present on admission () Unable to clinically determine () Clinically unable to determine () Other, patient has: MTDD
== END 2023-12-24 17:55 | DRG 689 ==
LOC: ED 13:08 → EDINP 15:04 → SUATTDRO 15:04 → EDINP 18:28 → 2S 19:48